=== PATIENT | female | born 1965 | race Caucasian/White ===

== ENCOUNTER 2016-08-09 21:46 | Inpatient (IN) | payer MEDICAID, OTHER ==
[~2016-08-09 21:46] MED LIST: ALBUAER3 INH; BENZ1TAB PO; CLAR10CA3 PO; FURO20TA PO; HALO10TA PO; LITH300C2 PO; LORA-373 PO; OLAN15TA PO; OXYB5TAB10 PO; POTA-163 PO
[2016-08-09 22:08] VITALS: BP 138/95; PULSE 88; RESP 18; TEMP 99.1; O2SAT 100
--- NOTE | 2016-08-09 22:35 | PD ---
HPI Chief Complaint: Psychiatric Symptoms Time Seen by Provider: 22:26 Travel History International Travel<30 days: No Contact w/Intl Traveler<30days: No Traveled to known affect area: No History of Present Illness HPI 51-year-old white female presents to emergency department under [place] act by PD. She had informed PD that she was feeling depressed and having thoughts of self-harm. She was going to cut her wrists. She states that she does not like living where she is at right now. She states that she is in a residential. She denies any toxic ingestions. No homicidal ideation. She has a history of substance abuse in the past. She states that she's been sober off drugs and alcohol for a year now. She contends that she has been compliant with her medications. She reports having an episode of nausea vomiting earlier today but none now. She denies any fever or chills. No ear pain, sore throat, cough , dysuria, frequency or back pain. No rashes or lesions. PFSH Past Medical History Narrative Medical Bipolar, paranoid schizophrenia, substance abuse, hepatitis C Asthma: No Bipolar Disorder: Yes Depression: Yes (MANIC DEPRESSIVE DISORDER) COPD: No Diabetes: No Diminished Hearing: No Hepatitis: Yes (HEP C) Seizures: Yes Tetanus Vaccination: < 5 Years ?: Not Past Surgical History Narrative Surgical 2, hysterectomy Section: Yes Gynecologic Surgery: Yes (C/SECTIONS X2) Hysterectomy: Yes Social History Alcohol Use: No (states sober for one year.) Tobacco Use: Yes (1 PACK DAILY) Substance Use: No (patient has a history of polysubstance abuse but states that she has been sober now for one year.) Allergies-Medications (Allergen,Severity, Reaction): Coded Allergies: Penicillin (Verified Allergy, Severe, 08/04/16) Reported Meds & Prescriptions Reported Meds & Active Scripts Active Reported Haloperidol 10 Mg Tab 15 Mg PO DAILY Benztropine (Benztropine Mesylate) 1 Mg Tab 1 Mg PO BID [place] Carbonate 300 Mg Cap 300 Mg PO BID Potassium Chloride ER (Potassium Chloride) 20 Meq Tab 20 Meq PO DAILY Proair Hfa 8.5 GM Inh (Albuterol Sulfate) 90 Mcg/Act Aer 2 Puff INH Q4-6H PRN 108 mcg/actuation Lorazepam 0.5 Mg Tab 0.5 Mg PO BID PRN Olanzapine 15 Mg Tab 15 Mg PO HS Furosemide 20 Mg Tab 20 Mg PO DAILY Claritin (Loratadine) 10 Mg Cap 10 Mg PO DAILY Ditropan (Oxybutynin Chloride) 5 Mg Tab 5 Mg PO Q12HR Review of Systems Except as stated in HPI: all other systems reviewed are Neg Psychiatric: Positive: Depression, Mood Disorder, No: Anxiety, Suicidal Ideations, Disorder of Thought, Substance Abuse (denies any currently. History of.), Homicidal Ideation Physical Exam Narrative GENERAL: Well-nourished, well-developed patient. SKIN: Warm and dry. HEAD: Normocephalic and atraumatic. EYES: No scleral icterus. No injection or drainage. ENT: No nasal drainage noted. Mucous membranes pink. Airway patent. NECK: Supple, trachea midline. Moves head freely without obvious discomfort. CARDIOVASCULAR: Regular rate and rhythm without murmurs, gallops, or rubs. RESPIRATORY: Breath sounds equal bilaterally. No accessory muscle use. GASTROINTESTINAL: Abdomen soft, non-tender, nondistended. No guarding or rebound. EXTREMITIES: No cyanosis or edema. BACK: Nontender without obvious deformity. No CVA tenderness. NEURO: Patient is alert and oriented. no sensorimotor deficits. Nonfocal. Mumbled speech. PSYCH: No delusions. No auditory or visual hallucinations. Data Data Last Documented VS Vital Signs Date Time Temp Pulse Resp B/P Pulse Ox O2 Delivery O2 Flow Rate FiO2 08/09/16 22:08 99.1 88 18 138/95 100 Orders Complete Blood Count With Diff (08/09/16 22:24) Comprehensive Metabolic Panel (08/09/16 22:24) Psych Screen (08/09/16 22:24) Drug Screen, Random Urine (08/09/16 22:24) Alcohol (Ethanol) (08/09/16 22:24) Salicylates (Aspirin) (08/09/16 22:24) Tylenol (Acetaminophen) (08/09/16 22:24) Labs Laboratory Tests Test 08/09/16 08/09/16 22:06 23:36 White Blood Count 10.2 TH/MM3 Red Blood Count 4.27 MIL/MM3 Hemoglobin 13.9 GM/DL Hematocrit 40.8 % Mean Corpuscular Volume 95.6 FL Mean Corpuscular Hemoglobin 32.6 PG Mean Corpuscular Hemoglobin 34.1 % Concent Red Cell Distribution Width 13.0 % Platelet Count 112 TH/MM3 Mean Platelet Volume 8.9 FL Neutrophils (%) (Auto) 75.5 % Lymphocytes (%) (Auto) 12.3 % Monocytes (%) (Auto) 8.3 % Eosinophils (%) (Auto) 3.1 % Basophils (%) (Auto) 0.8 % Neutrophils # (Auto) 7.7 TH/MM3 Lymphocytes # (Auto) 1.3 TH/MM3 Monocytes # (Auto) 0.8 TH/MM3 Eosinophils # (Auto) 0.3 TH/MM3 Basophils # (Auto) 0.1 TH/MM3 CBC Comment DIFF FINAL Differential Comment Sodium Level 138 MEQ/L Potassium Level 3.2 MEQ/L Chloride Level 103 MEQ/L Carbon Dioxide Level 28.6 MEQ/L Anion Gap 6 MEQ/L Blood Urea Nitrogen 8 MG/DL Creatinine 1.04 MG/DL Estimat Glomerular Filtration 56 ML/MIN Rate Random Glucose 84 MG/DL Calcium Level 9.0 MG/DL Total Bilirubin 0.4 MG/DL Aspartate Amino Transf 24 U/L (AST/SGOT) Alanine Aminotransferase 51 U/L (ALT/SGPT) Alkaline Phosphatase 102 U/L Total Protein 7.3 GM/DL Albumin 3.7 GM/DL Salicylates Level 2.9 MG/DL Acetaminophen Level LESS THAN 2.0 MCG/ML Ethyl Alcohol Level LESS THAN 3 MG/DL Urine Opiates Screen NEG Urine Barbiturates Screen NEG Urine Amphetamines Screen NEG Urine Benzodiazepines Screen NEG Urine Cocaine Screen NEG Urine Cannabinoids Screen NEG MDM Medical Decision Making Medical Screen Exam Complete: Yes Emergency Medical Condition: Yes Medical Record Reviewed: Yes Interpretation(s) Laboratory Tests Test 08/09/16 08/09/16 22:06 23:36 White Blood Count 10.2 TH/MM3 Red Blood Count 4.27 MIL/MM3 Hemoglobin 13.9 GM/DL Hematocrit 40.8 % Mean Corpuscular Volume 95.6 FL Mean Corpuscular Hemoglobin 32.6 PG Mean Corpuscular Hemoglobin 34.1 % Concent Red Cell Distribution Width 13.0 % Platelet Count 112 TH/MM3 Mean Platelet Volume 8.9 FL Neutrophils (%) (Auto) 75.5 % Lymphocytes (%) (Auto) 12.3 % Monocytes (%) (Auto) 8.3 % Eosinophils (%) (Auto) 3.1 % Basophils (%) (Auto) 0.8 % Neutrophils # (Auto) 7.7 TH/MM3 Lymphocytes # (Auto) 1.3 TH/MM3 Monocytes # (Auto) 0.8 TH/MM3 Eosinophils # (Auto) 0.3 TH/MM3 Basophils # (Auto) 0.1 TH/MM3 CBC Comment DIFF FINAL Differential Comment Sodium Level 138 MEQ/L Potassium Level 3.2 MEQ/L Chloride Level 103 MEQ/L Carbon Dioxide Level 28.6 MEQ/L Anion Gap 6 MEQ/L Blood Urea Nitrogen 8 MG/DL Creatinine 1.04 MG/DL Estimat Glomerular Filtration 56 ML/MIN Rate Random Glucose 84 MG/DL Calcium Level 9.0 MG/DL Total Bilirubin 0.4 MG/DL Aspartate Amino Transf 24 U/L (AST/SGOT) Alanine Aminotransferase 51 U/L (ALT/SGPT) Alkaline Phosphatase 102 U/L Total Protein 7.3 GM/DL Albumin 3.7 GM/DL Salicylates Level 2.9 MG/DL Acetaminophen Level LESS THAN 2.0 MCG/ML Ethyl Alcohol Level LESS THAN 3 MG/DL Urine Opiates Screen NEG Urine Barbiturates Screen NEG Urine Amphetamines Screen NEG Urine Benzodiazepines Screen NEG Urine Cocaine Screen NEG Urine Cannabinoids Screen NEG Differential Diagnosis MDM: High Differential diagnoses: Schizophrenia, schizoaffective disorder, bipolar, anxiety, depression, adjustment reaction, mood disorder NOS, ODD, depressive disorder NOS, dementia, dementia with agitation, psychosis NOS, substance induced mood disorder, intermittent explosive disorder, Asperger syndrome, infection,electrolyte abnormality, malingering. Narrative Course Mental health screening discussed with the patient. Psychiatric screen ordered. The patient is been medically cleared. This is medical clearance Diagnosis Primary Impression: Medical clearance for psychiatric admission Condition: Elieser Ferraro August 09, 2016 22:35
[2016-08-09 23:01] LABS: AUTOMATED NEUTROPHIL # 7.7 TH/MM3 (1.8-7.7); BASOPHIL # 0.1 TH/MM3 (0-0.2); BASOPHIL % 0.8 % (0.0-2.0); EOSINOPHIL # 0.3 TH/MM3 (0-0.4); EOSINOPHIL % 3.1 % (0.0-4.0); HEMATOCRIT 40.8 % (35.0-46.0); HEMO FLAGS DIFF FINAL; LYMPH % 12.3 % (9.0-44.0); LYMPHOCYTE # 1.3 TH/MM3 (1.0-4.8); MEAN CELL VOLUME 95.6 FL (80.0-100.0); MEAN CORPUSCULAR HEMOGLOBIN 32.6 PG (27.0-34.0); MEAN CORPUSCULAR HGB CONC 34.1 % (32.0-36.0); MONO % 8.3 % (0.0-8.0); NEUT % 75.5 % (16.0-70.0); PLATELET COUNT 112 TH/MM3 (150-450); RED BLOOD COUNT 4.27 MIL/MM3 (4.00-5.30); WHITE BLOOD COUNT 10.2 TH/MM3 (4.0-11.0)
[2016-08-09 23:25] LABS: ALT (GPT) 51 U/L (10-53); ANION GAP 6 MEQ/L (5-15); AST (GOT) 24 U/L (15-37); BICARBONATE 28.6 MEQ/L (21.0-32.0); BLOOD UREA NITROGEN 8 MG/DL (7-18); CHLORIDE 103 MEQ/L (98-107); GLOMERULAR FILTRATION RATE 56 ML/MIN (>89); POTASSIUM 3.2 MEQ/L (3.5-5.1); SODIUM (NA) 138 MEQ/L (136-145)
[2016-08-09 23:27] LABS: ACETAMINOPHEN LESS THAN 2.0 MCG/ML (10.0-30.0); ALKALINE PHOSPHATASE 102 U/L (45-117); TOTAL BILIRUBIN ADULT 0.4 MG/DL (0.2-1.0)
[2016-08-09 23:51] LABS: AMPHETAMINE, URINE NEG (NEG); BARBITURATES, URINE NEG (NEG); COCAINE, URINE NEG (NEG)
[2016-08-10 02:42] VITALS: BP 118/73; PULSE 69; RESP 18; O2SAT 97
[2016-08-10] MEDS ORDERED: HALO100P IM (04:42)
[2016-08-10 10:00] VITALS: BP 115/66; PULSE 64; RESP 18
[2016-08-10 14:00] VITALS: BP 107/59; PULSE 59; RESP 18
[2016-08-10 14:55] VITALS: TEMP 97; O2SAT 99
[2016-08-10] MEDS ORDERED: MAGNESIUM HYDROXIDE SUSP 30 ML CUP PO PRN (15:00)
[2016-08-10] MEDS ORDERED: LORazepam 2 MG/ML VIAL IM PRN (15:00)
[2016-08-10] MEDS ORDERED: BENZTROPINE MESYLATE 1 MG TAB PO PRN (15:00)
[2016-08-10] MEDS ORDERED: BENZTROPINE MESYLATE 2 MG/2 ML VIAL IM PRN (15:00)
[2016-08-10] MEDS ORDERED: ALUMINUM/MAGNESIUM/SIMETH 30 ML CUP PO PRN (15:00)
--- NOTE | 2016-08-10 15:00 | HHI.HP ---
Provisional Diagnosis Admission Date 08/10/2016 [place] I. 1. Other schizoaffective disorder [place] II. Deferred [place] V. GAF is unclear at present Certification of Person's Competence To Provide Express and Informed Consent I have personally examined Kate Roy , a person being served at [facility] on, August 10, 2016 15:00. Express and informed consent means consent voluntarily given in writing, by a competent person, after sufficient explanation and disclosure of the subject matter involved to enable the person to make a knowing and willful decision without any element of force, fraud, deceit, duress, or other form of constraint or coercion. This person is 18 years of age or older, is not now known to be incompetent to consent to treatment with a guardian advocate, and does not have a health care surrogate or proxy currently making medical treatment decisions. I have found this person to be one of the following: [] Competent to provide express and informed consent, as defined above, for voluntary admission to this facility and is competent to provide express and informed consent for treatment. He/she has the consistent capacity to make well reasoned, willful, and knowing decisions concerning his or her medical or mental health treatment. The person fully and consistently understands the purpose of the admission for examination/placement and is fully capable of personally exercising all rights assured [place] [] Incompetent to provide express and informed consent to voluntary admission, and this is incompetent to provide express and informed consent to treatment. The person must be transferred to involuntary status and a petition for a guardian advocate filed with the Circuit Court. [x] Refusing to provide express and informed consent to voluntary admission but is competent to provide express and informed consent for treatment. The person must be discharged or transferred to involuntary status. Form shall be completed within 24 hours of a person's arrival at the receiving facility and filed in the clinical record of each person: 1. Admitted on a voluntary basis 2. Permitted to provide express and informed consent to his/her own treatment 3. Allowed to transfer from involuntary to voluntary status 4. Prior to permitting a person to consent to his or her own treatment after having been previously found incompetent to consent to treatment. History of Present Illness Capacity: Has Capacity HPI Ms. Roy is a 51-year-old female with a history of schizoaffective disorder brought in by [place] [employer] under a [place] act alleging that she threatened to slit her wrists. Reviewing the electronic medical record, I note the patient was admitted most recently here under Dr. Chery in 2004. Patient has apparently been getting most of her inpatient/outpatient psychiatric care through [facility] since then. Patient seen and examined. Chart reviewed. Case discussed with nursing staff. On my examination today, the patient admits to making suicidal threats to law enforcement but says "I made that up because I wanted to go somewhere." Patient apparently means to say that she wished to get out of her halfway for some time. She denies any suicidal ideation at this time. No homicidal ideation. Patient denies issues with mood but her affect is somewhat irritable. She denies audiovisual hallucinations. No car delusions. She is noted to be somewhat intrusive and discharge focused. The remainder of the psychiatric ROS is negative. Past psychiatric history: Patient has a history of schizoaffective disorder. She follows at [facility]. She reports that she was hospitalized on the order of several weeks ago at [facility]. She endorses a history of suicide attempts by cutting her wrists. Review of Systems ROS Limitations: Poor Historian Except as stated in HPI: all other systems reviewed are Neg Past Psych History Psychological trauma history No reported trauma hx Violence risk - others (6 mos) Low imminent risk Violence risk - self (6 mos) Indeterminate Substance Abuse History Drugs/Alcohol past 12 months Patient denies any abuse of drugs or alcohol Past Family Social History Coded Allergies: Penicillin (Verified Allergy, Severe, 08/04/16) Past Medical History See electronic medical record Reported Medications Haloperidol Decanoate Inj (Haldol Decanoate Inj)100 Mg/Ml [id number] Mg IM Q28D #1 VIAL Ref 0 08/10/16 Haloperidol 10 Mg Tab10 Mg PO HS Ref 0 08/04/16 Benztropine 1 Mg Tab1 Mg PO BID #60 TAB Ref 0 08/04/16 [place] Carbonate 300 Mg [id number] Mg PO BID Ref 0 08/04/16 Potassium Chloride ER 20 Meq Tab20 Meq PO DAILY #30 TAB Ref 0 08/04/16 Albuterol 8.5 GM Inh (Proair Hfa 8.5 GM Inh)90 Mcg/Act Aer2 Puff INH Q4-6H PRN ( SHORTNESS OF BREATH) #1 INHALER Ref 0 108 mcg/actuation 08/04/16 Lorazepam 0.5 Mg Tab0.5 Mg PO BID PRN (ANXIETY) Ref 0 08/04/16 Olanzapine 15 Mg Tab15 Mg PO HS #30 TAB Ref 0 08/04/16 Loratadine (Claritin)10 Mg Cap10 Mg PO DAILY Ref 0 08/04/16 Oxybutynin (Ditropan)5 Mg Tab5 Mg PO Q12HR #60 TAB Ref 0 08/04/16 Discontinued Reported Medications Furosemide 20 Mg Tab20 Mg PO DAILY #30 TAB Ref 0 08/04/16 Potassium (Potassimin)75 Mg Tab 08/04/16 Trazodone HCl 100 Mg Dqj278 Mg PO HS 12/19/12 Risperidone Microspheres (Risperdal Consta)12.5 Mg/2 Ml Inj50 Mg IM EVERY 2 WEEKS 02/21/11 [place] Carbonate (Eskalith)300 Mg Cxz720 Mg PO DAILY 02/21/11 Benztropine Mesylate (Cogentin)1 Mg/Ml Inj1 Mg IJ BID 02/21/11 Current Medications Medications (Trade) Dose Ordered Sig/Justin Route Start Time Stop Time Status Last Admin (Ativan) 1 mg Q6H PRN PO 08/10/16 15:00 UNV (Ativan Inj) 1 mg Q6H PRN IM 08/10/16 15:00 UNV (Benadryl) 50 mg HS PRN PO 08/10/16 15:00 UNV (Tylenol) 650 mg Q4H PRN PO 08/10/16 15:00 UNV (Milk Of Magnesia Liq) 30 ml DAILY PRN PO 08/10/16 15:00 UNV (Mag-Al Plus Susp Liq) 30 ml Q6H PRN PO 08/10/16 15:00 UNV (Habitrol 21 Mg Patch.24 Hr) 1 patch DAILY T-DERMAL 08/11/16 09:00 UNV (Cogentin) 1 mg Q12H PRN PO 08/10/16 15:00 UNV (Cogentin Inj) 1 mg Q12H PRN IM 08/10/16 15:00 UNV Miscellaneous Information 1 DAILY T-DERMAL 08/11/16 09:00 UNV Family History Patient reports mother had schizophrenia Social History Patient lives at a halfway called [facility]. She has resided there for 2 months she says. She is not terribly pleased with the living environment. She is college educated. She previously worked as a banking services advisor. She denies any or legal history. She has 4 children and is . Patient's Strengths (min. 2) In a monitored setting. Verbally fluent. Physical Exam Physical exam completed by ED provider. On my examination today, patient is in no acute physical distress. No motor abnormalities noted. Labs and vital signs reviewed: Vital Signs Vital Signs Date Time Temp Pulse Resp B/P Pulse Ox O2 Delivery O2 Flow Rate FiO2 08/10/16 14:55 97.0 99 08/10/16 14:00 59 18 107/59 Room Air Lab Results Item Value Date Time White Blood Count 10.2 TH/MM3 08/09/162205 Hemoglobin 13.9 GM/DL 08/09/162205 Platelet Count 112 TH/MM3 L 08/09/162205 Sodium Level 138 MEQ/L 08/09/162205 Potassium Level 3.2 MEQ/L L 08/09/162205 Chloride Level 103 MEQ/L 08/09/162205 Carbon Dioxide Level 28.6 MEQ/L 08/09/162205 Blood Urea Nitrogen 8 MG/DL 08/09/166 Creatinine 1.04 MG/DL H 08/09/162205 Aspartate Amino Transf (AST/SGOT) 24 U/L 08/09/162205 Alanine Aminotransferase (ALT/SGPT) 51 U/L 08/09/162205 Alkaline Phosphatase 102 U/L 08/09/162205 Toxicology negative and alcohol level undetectable. ED [id number] test negative. Mental Status Examination Patient is in hospital gown. She is fairly well groomed. She is awake and alert and oriented to person and hospital at least. No abnormal motor movements noted. Speech is within normal limits for rate, tone and volume. Language and fund of knowledge seem average to perhaps slightly reduced. Mood is reportedly fair but affect is somewhat restricted and dysphoric/irritable. Thought process perseverative on discharge. No car delusions. No audiovisual hallucinations. Denies suicidal or homicidal ideation but it is unclear that she is reliable to contract for safety in her present state. Insight and judgment are unclear. Assessment & Plan Problem List: (1) Schizoaffective disorder ICD Code: F25.9 Assessment & Plan This is a 51-year-old female with psychiatric history as detailed above who presents under a [place] act. Patient admits to making the suicidal threats listed in the [place] act but says that she was just trying to get out of her halfway. Nonetheless, the patient is somewhat irritable and dysphoric and I fear that she is unreliable to contract for safety at this time. I believe it is most prudent therefore to admit the patient to the inpatient psychiatric unit for observation. Admit inpatient. Patient is refusing voluntary status. Initiate petition for involuntary psychiatric hospitalization. Consult for second opinion. Patient retains capacity to consent for medications. Continue Haldol 10 mg and Zyprexa 15 mg, both dosed at bedtime. Patient also receives Haldol Decanoate, and the nursing staff reports that the patient received her last dose on 08/05. Continue lithium. Check a spot lithium level. Check a BMP, hemoglobin A1c, lipid panel and TSH in the morning. Continue potassium supplement. Continue Ditropan and loratadine. Ativan as needed for anxiety, Cogentin as needed for EPS, Benadryl as needed for sleep. Vitals every shift. Counselor to see. Disposition planning. Estimated length of stay: 3-5 days. Discharge Planning Pending outcome of observation. Request HC Surrog/Guard Advoc?: No Problem Qualifiers (1) Schizoaffective disorder: Qualified Code: F25.8 - Other schizoaffective disorders Jairon Milner MD August 10, 2016 15:00
[2016-08-10] MEDS ORDERED: ALBUTEROL SULFATE 90 MCG/ACT HFA 18 GM INHALER INH PRN (15:30)
[2016-08-10] MEDS: NICOTINE 21 MG/24 HR PATCH T-DERMAL SCH (16:54)
[2016-08-10] MEDS: OXYBUTYNIN CHLORIDE 5 MG TAB PO SCH (21:41)
[2016-08-10] MEDS: HALOPERIDOL 10 MG TAB PO SCH (21:41)
[2016-08-10] MEDS: diphenhydrAMINE HCL 50 MG CAP PO PRN (21:42)
[2016-08-10] MEDS: LITHIUM CARBONATE 300 MG CAP PO SCH (21:42)
[2016-08-10] MEDS: BENZTROPINE MESYLATE 1 MG TAB PO SCH (21:42)
[2016-08-11 06:11] VITALS: BP 100/58; PULSE 56; RESP 16; TEMP 97.9; O2SAT 97
[2016-08-11] MEDS: POTASSIUM CHLORIDE 20 MEQ PWD PACKET PO SCH (09:00)
[2016-08-11] MEDS ORDERED: NICOTINE 21 MG/24 HR PATCH T-DERMAL SCH (09:00)
[2016-08-11] MEDS: REMOVE OLD PATCH T-DERMAL SCH (09:00)
[2016-08-11] MEDS ORDERED: POTASSIUM CHLORIDE 20 MEQ CONTROLLED RELEASE TAB PO SCH (09:00)
[2016-08-11] MEDS: BENZTROPINE MESYLATE 1 MG TAB PO SCH ×2 (09:05→20:33)
[2016-08-11] MEDS: NICOTINE 21 MG/24 HR PATCH T-DERMAL SCH (09:05)
[2016-08-11] MEDS: OXYBUTYNIN CHLORIDE 5 MG TAB PO SCH ×2 (09:05→20:33)
[2016-08-11] MEDS: LORATADINE 10 MG TAB PO SCH (09:05)
[2016-08-11] MEDS: LITHIUM CARBONATE 300 MG CAP PO SCH ×2 (09:05→20:33)
[2016-08-11 09:40] LABS: ANION GAP 7 MEQ/L (5-15); BICARBONATE 26.1 MEQ/L (21.0-32.0); BLOOD UREA NITROGEN 13 MG/DL (7-18); CHLORIDE 107 MEQ/L (98-107); GLOMERULAR FILTRATION RATE 54 ML/MIN (>89); HDL CHOLESTEROL 33.6 MG/DL (40.0-60.0); LDL CHOLESTEROL 19 MG/DL (0-99); POTASSIUM 4.3 MEQ/L (3.5-5.1); SODIUM (NA) 140 MEQ/L (136-145)
[2016-08-11 11:27] LABS: HEMOGLOBIN A1b 1.4 %; HEMOGLOBIN Ao 86.4 %; HEMOGLOBIN LA1C 2.4 %; HEMOGLOBIN P3 4.8 %
[2016-08-11] MEDS: LORazepam 1 MG TAB PO PRN (12:09)
--- NOTE | 2016-08-11 14:53 | HHI.PYPN ---
Subjective Remarks Patient continues to endorse suicidal ideation. She also appears rather paranoid and easily disorganized. She is willing to be treated with antipsychotic medication at this time. Review of Systems ROS Limitations: Psychotic Objective Alert: Yes [place]: Person, Place, Date, Situation Mood: Anxious Affect: Restricted Memory Intact: Immediate, Recent, Remote Hallucinations: Other Delusions: Yes Delusion Type: Paranoid Suicidal: Ideation Homicidal: Ideation Insight/Judgment Impaired Labs Test 08/10/16 08/11/16 16:48 08:26 Beta HCG, Qualitative LESS THAN 1 MIU/ML [place] Level 0.3 MEQ/L Sodium Level 140 MEQ/L Potassium Level 4.3 MEQ/L Chloride Level 107 MEQ/L Carbon Dioxide Level 26.1 MEQ/L Anion Gap 7 MEQ/L Blood Urea Nitrogen 13 MG/DL Creatinine 1.08 MG/DL Estimat Glomerular Filtration 54 ML/MIN Rate Random Glucose 169 MG/DL Hemoglobin A1c 4.9 % Calcium Level 9.2 MG/DL Triglycerides Level 70 MG/DL Cholesterol Level 67 MG/DL LDL Cholesterol 19 MG/DL HDL Cholesterol 33.6 MG/DL Cholesterol/HDL Ratio 1.99 RATIO Thyroid Stimulating Hormone 0.838 uIU/ML 3rd Gen Vitals/IOs Vital Signs Date Time Temp Pulse Resp B/P Pulse Ox O2 Delivery O2 Flow Rate FiO2 08/11/16 06:11 97.9 56 16 100/58 97 08/10/16 14:00 Room Air Assessment & Plan Problem List: (1) Schizoaffective disorder ICD Code: F25.9 Assessment & Plan Estimated LOS: 3 days patient's medications to be evaluated for efficacy. She' ll be engaged in individual and group therapies. Justification for Cont. Inpt. Likely to decompensate at lower level of care. Request HC Surrog/Guard Advoc?: No Problem Qualifiers (1) Schizoaffective disorder: Qualified Code: F25.8 - Other schizoaffective disorders Robles Scott MD August 11, 2016 14:52
[2016-08-11 18:00] VITALS: BP 105/77; PULSE 87; RESP 16; TEMP 97.8; O2SAT 97
[2016-08-11] MEDS: HALOPERIDOL 10 MG TAB PO SCH (20:33)
[2016-08-11] MEDS: diphenhydrAMINE HCL 50 MG CAP PO PRN (20:33)
[2016-08-12 04:38] VITALS: BP 89/58; PULSE 62; RESP 18; TEMP 97.8; O2SAT 96
[2016-08-12] MEDS: REMOVE OLD PATCH T-DERMAL SCH (09:00)
[2016-08-12] MEDS: LITHIUM CARBONATE 300 MG CAP PO SCH ×2 (09:12→21:44)
[2016-08-12] MEDS: OXYBUTYNIN CHLORIDE 5 MG TAB PO SCH ×2 (09:13→21:44)
[2016-08-12] MEDS: LORATADINE 10 MG TAB PO SCH (09:13)
[2016-08-12] MEDS: POTASSIUM CHLORIDE 20 MEQ PWD PACKET PO SCH (09:13)
[2016-08-12] MEDS: BENZTROPINE MESYLATE 1 MG TAB PO SCH ×2 (09:13→21:44)
[2016-08-12] MEDS: NICOTINE 21 MG/24 HR PATCH T-DERMAL SCH (09:14)
--- NOTE | 2016-08-12 10:59 | HHI.PYPN ---
Subjective Remarks Patient repeatedly stating she wants to go home to her PRISON. This physician has incomplete information about patient's ability to care for herself. Reviewed medical record once again, indicating patient was suicidal at the time of admission but then claimed not to be. We will observe and evaluated over the next 24 hours and determine if patient can be consistent. Review of Systems Except as stated in HPI: all other systems reviewed are Neg Objective Alert: Yes [place]: Person, Place, Date, Situation Mood: Anxious Affect: Restricted Memory Intact: Immediate, Recent, Remote Hallucinations: Other Delusions: Yes Delusion Type: Paranoid Suicidal: Ideation Homicidal: Ideation Insight/Judgment Impaired Vitals/IOs Vital Signs Date Time Temp Pulse Resp B/P Pulse Ox O2 Delivery O2 Flow Rate FiO2 08/12/16 04:38 97.8 62 18 89/58 96 08/10/16 14:00 Room Air Assessment & Plan Problem List: (1) Schizoaffective disorder ICD Code: F25.9 Assessment & Plan Estimated LOS: 1-2 days patient to be evaluated while she is maintained on antipsychotic medication, for stability and behavioral consistency. Justification for Cont. Inpt. Suicidal threats to slit her wrists. Request HC Surrog/Guard Advoc?: No Problem Qualifiers (1) Schizoaffective disorder: Qualified Code: F25.8 - Other schizoaffective disorders Robles Scott MD August 12, 2016 10:59
[2016-08-12 18:03] VITALS: BP 107/65; PULSE 76; RESP 18; TEMP 98.2; O2SAT 98
[2016-08-12] MEDS: HALOPERIDOL 10 MG TAB PO SCH (21:44)
[2016-08-13 05:56] VITALS: BP 91/51; PULSE 58; RESP 16; TEMP 98.2
[2016-08-13] MEDS: REMOVE OLD PATCH T-DERMAL SCH (09:00)
[2016-08-13] MEDS: NICOTINE 21 MG/24 HR PATCH T-DERMAL SCH (09:00)
[2016-08-13] MEDS: BENZTROPINE MESYLATE 1 MG TAB PO SCH ×2 (09:19→20:48)
[2016-08-13] MEDS: OXYBUTYNIN CHLORIDE 5 MG TAB PO SCH ×2 (09:19→20:48)
[2016-08-13] MEDS: POTASSIUM CHLORIDE 20 MEQ PWD PACKET PO SCH (09:19)
[2016-08-13] MEDS: LITHIUM CARBONATE 300 MG CAP PO SCH ×2 (09:19→20:48)
[2016-08-13] MEDS: LORATADINE 10 MG TAB PO SCH (09:19)
[2016-08-13 17:28] VITALS: BP 116/80; PULSE 76; RESP 16; TEMP 97.1; O2SAT 99
[2016-08-13 18:00] VITALS: BP 116/80; PULSE 76; RESP 16; TEMP 97.1; O2SAT 99
[2016-08-13] MEDS: HALOPERIDOL 10 MG TAB PO SCH (20:48)
[2016-08-14 05:41] VITALS: BP 106/68; PULSE 70; RESP 18; TEMP 98.4; O2SAT 97
[2016-08-14] MEDS: OXYBUTYNIN CHLORIDE 5 MG TAB PO SCH ×2 (08:30→21:15)
[2016-08-14] MEDS: BENZTROPINE MESYLATE 1 MG TAB PO SCH ×2 (08:30→21:15)
[2016-08-14] MEDS: LITHIUM CARBONATE 300 MG CAP PO SCH ×2 (08:31→21:15)
[2016-08-14] MEDS: LORATADINE 10 MG TAB PO SCH (08:31)
[2016-08-14] MEDS: NICOTINE 21 MG/24 HR PATCH T-DERMAL SCH (09:00)
[2016-08-14] MEDS: POTASSIUM CHLORIDE 20 MEQ PWD PACKET PO SCH (09:00)
[2016-08-14] MEDS: REMOVE OLD PATCH T-DERMAL SCH (09:00)
--- NOTE | 2016-08-14 14:14 | HHI.PYPN ---
Subjective Remarks Patient continues to be lost, disoriented and easily confused. Wants to leave the hospital even though the foil wrapper told her she may not. Guardian advocate appointment. Review of Systems ROS Limitations: Psychotic Objective Alert: Yes [place]: Person, Place, Date, Situation Mood: Anxious Affect: Restricted Memory Intact: Immediate, Recent, Remote Hallucinations: Other Delusions: Yes Delusion Type: Paranoid Suicidal: Ideation Homicidal: Ideation Insight/Judgment Impaired Vitals/IOs Vital Signs Date Time Temp Pulse Resp B/P Pulse Ox O2 Delivery O2 Flow Rate FiO2 08/14/16 05:41 98.4 70 18 106/68 97 08/10/16 14:00 Room Air Assessment & Plan Problem List: (1) Schizoaffective disorder ICD Code: F25.9 Assessment & Plan Estimated LOS: 5-7 days continued treatment and look for appropriate placement. Justification for Cont. Inpt. No place to go. Likely to decompensate at lower level of care. Request HC Surrog/Guard Advoc?: No Problem Qualifiers (1) Schizoaffective disorder: Qualified Code: F25.8 - Other schizoaffective disorders Robles Scott MD August 14, 2016 14:14
[2016-08-14 20:09] VITALS: BP 114/78; PULSE 60; RESP 18; TEMP 97.9; O2SAT 99
[2016-08-14] MEDS: HALOPERIDOL 10 MG TAB PO SCH (21:15)
[2016-08-15] MEDS: ACETAMINOPHEN 325 MG TAB PO PRN (03:57)
[2016-08-15 06:07] VITALS: BP 136/89; PULSE 77; RESP 18; TEMP 97.7; O2SAT 95
[2016-08-15] MEDS: LITHIUM CARBONATE 300 MG CAP PO SCH ×2 (08:20→20:17)
[2016-08-15] MEDS: BENZTROPINE MESYLATE 1 MG TAB PO SCH ×2 (08:20→20:17)
[2016-08-15] MEDS: LORATADINE 10 MG TAB PO SCH (08:20)
[2016-08-15] MEDS: OXYBUTYNIN CHLORIDE 5 MG TAB PO SCH ×2 (08:20→20:17)
[2016-08-15] MEDS: POTASSIUM CHLORIDE 20 MEQ PWD PACKET PO SCH (08:22)
[2016-08-15] MEDS: REMOVE OLD PATCH T-DERMAL SCH (09:00)
[2016-08-15] MEDS: NICOTINE 21 MG/24 HR PATCH T-DERMAL SCH (09:00)
--- NOTE | 2016-08-15 14:07 | HHI.PYPN ---
Subjective Remarks Patient seen and examined with RN in coverage for Dr. Scott. Chart reviewed. Case discussed with RN who reports that patient was apparently struggling with emesis earlier in the hospital stay, but this is resolved now. Patient has been no behavioral problem. For me today, patient is a little suspicious, hypoverbal and flat. She asks "what's gonna happen in 3 weeks?" When I answer that in truth I do not know, she mutters, "you can't hold me hostage forever." She denies any SI/HI. Denies any AVH. Denies side effects from medications. Review of Systems ROS Limitations: Poor Historian Except as stated in HPI: all other systems reviewed are Neg Objective Alert: Yes [place]: Person, Place, Date Mood: Other (Mildly dysphoric) Affect: Restricted Memory Intact: Comment (Not formally assessed) Hallucinations: Other (Denies AVH) Delusions: Yes Delusion Type: Paranoid Suicidal: Ideation (Denies SI) Homicidal: Ideation (Denies HI) Insight/Judgment Poor Remarks No motor abnormalities noted. Grooming and hygiene fair. Labs Labs reviewed. Vitals/IOs Vital Signs Date Time Temp Pulse Resp B/P Pulse Ox O2 Delivery O2 Flow Rate FiO2 08/15/16 06:07 97.7 77 18 136/89 95 Assessment & Plan Problem List: (1) Schizoaffective disorder ICD Code: F25.9 Assessment & Plan Continue current psychotropics as ordered. Check a lithium level and BMP in the morning. Continue to monitor on the inpatient unit. Continue other medications and care as ordered. Justification for Cont. Inpt. Impairment in reality construction. Risk for decompensation in a less restrictive setting. Discharge Planning Per Dr. Scott. Request HC Surrog/Guard Advoc?: No Problem Qualifiers (1) Schizoaffective disorder: Qualified Code: F25.8 - Other schizoaffective disorders Jairon Milner MD August 15, 2016 14:07
[2016-08-15 18:00] VITALS: BP 148/93; PULSE 80; RESP 18; TEMP 97.2; O2SAT 96
[2016-08-15] MEDS: HALOPERIDOL 10 MG TAB PO SCH (20:17)
[2016-08-16 05:32] VITALS: BP 93/67; PULSE 70; RESP 17; TEMP 97.8; O2SAT 90
[2016-08-16] MEDS: OXYBUTYNIN CHLORIDE 5 MG TAB PO SCH ×2 (08:39→20:44)
[2016-08-16] MEDS: LORATADINE 10 MG TAB PO SCH (08:39)
[2016-08-16] MEDS: POTASSIUM CHLORIDE 20 MEQ PWD PACKET PO SCH (08:39)
[2016-08-16] MEDS: BENZTROPINE MESYLATE 1 MG TAB PO SCH ×2 (08:40→20:43)
[2016-08-16] MEDS: LITHIUM CARBONATE 300 MG CAP PO SCH ×2 (08:40→20:43)
[2016-08-16] MEDS: REMOVE OLD PATCH T-DERMAL SCH (08:44)
[2016-08-16] MEDS: NICOTINE 21 MG/24 HR PATCH T-DERMAL SCH (08:44)
[2016-08-16 10:30] LABS: BICARBONATE 28.9 MEQ/L (21.0-32.0)
[2016-08-16 10:45] VITALS: BP 113/77; PULSE 78; RESP 18; TEMP 98.6; O2SAT 96
--- NOTE | 2016-08-16 11:48 | HHI.PYPN ---
Subjective Remarks Patient seen and examined with nurse in weekend coverage. Chart reviewed. Case discussed with nursing staff who reports that the patient is seclusive to room. On my examination today, the patient presents once again is hypoverbal and flat. She is discharge focused. She denies any suicidal or homicidal ideation. She denies any audiovisual hallucinations. Blood pressure somewhat low today but the patient denies any headache, chest pain or shortness of breath. She is awake and alert and oriented 3. Denies side effects from medications. No other issues noted. Review of Systems ROS Limitations: Poor Historian Except as stated in HPI: all other systems reviewed are Neg Objective Alert: Yes [place]: Person, Place, Date Mood: Calm Affect: Restricted (mildly dysphoric) Memory Intact: Comment (Not formally assessed) Hallucinations: Other (once again denies audiovisual hallucinations) Delusions: Yes Delusion Type: Paranoid (guarded) Suicidal: Ideation (Denies SI) Homicidal: Ideation (Denies HI) Insight/Judgment Poor Remarks No motor abnormalities noted Labs Test 08/16/16 08:35 Sodium Level 142 MEQ/L Potassium Level 4.0 MEQ/L Chloride Level 108 MEQ/L Carbon Dioxide Level 28.9 MEQ/L Anion Gap 5 MEQ/L Blood Urea Nitrogen 18 MG/DL Creatinine 0.97 MG/DL Estimat Glomerular Filtration 61 ML/MIN Rate Random Glucose 95 MG/DL Calcium Level 9.3 MG/DL [place] Level 0.5 MEQ/L Labs reviewed. GFR minimally improved. [place] level remains a little subtherapeutic. Vitals/IOs Vital Signs Date Time Temp Pulse Resp B/P Pulse Ox O2 Delivery O2 Flow Rate FiO2 08/16/16 05:32 97.8 70 17 93/67 90 Assessment & Plan Problem List: (1) Schizoaffective disorder ICD Code: F25.9 Assessment & Plan [place] level remains a little subtherapeutic but in light of patient's ongoing impaired renal function, I will defer to Dr. Scott as to whether to increase the lithium to try to bring the level into the therapeutic range. Recheck vital signs. Fall prec. Continue other medications and care as ordered. Justification for Cont. Inpt. High risk for decompensation in a less restrictive environment Discharge Planning Per Dr. Scott Request HC Surrog/Guard Advoc?: No Problem Qualifiers (1) Schizoaffective disorder: Qualified Code: F25.8 - Other schizoaffective disorders Jairon Milner MD August 16, 2016 11:47
[2016-08-16 18:03] VITALS: BP 120/90; PULSE 100; RESP 18; TEMP 97.6; O2SAT 94
[2016-08-16] MEDS: HALOPERIDOL 10 MG TAB PO SCH (20:44)
[2016-08-17 04:57] VITALS: BP 94/48; PULSE 62; RESP 16; TEMP 98.5; O2SAT 97
[2016-08-17] MEDS: REMOVE OLD PATCH T-DERMAL SCH (09:00)
[2016-08-17] MEDS: POTASSIUM CHLORIDE 20 MEQ PWD PACKET PO SCH (09:00)
[2016-08-17] MEDS: NICOTINE 21 MG/24 HR PATCH T-DERMAL SCH (09:00)
[2016-08-17] MEDS: OXYBUTYNIN CHLORIDE 5 MG TAB PO SCH ×2 (09:16→21:01)
[2016-08-17] MEDS: BENZTROPINE MESYLATE 1 MG TAB PO SCH ×2 (09:17→21:00)
[2016-08-17] MEDS: LITHIUM CARBONATE 300 MG CAP PO SCH ×2 (09:17→21:00)
[2016-08-17] MEDS: LORATADINE 10 MG TAB PO SCH (09:17)
[2016-08-17 15:43] VITALS: BP 151/89; PULSE 78; RESP 18; TEMP 96.1; O2SAT 99
[2016-08-17 20:00] VITALS: BP_SYST 127; BP_SYST 151; BP_DIAS 79; BP_DIAS 89; PULSE 75; PULSE 78; RESP 18; TEMP 96.1; O2SAT 98; O2SAT 99
[2016-08-17] MEDS: HALOPERIDOL 10 MG TAB PO SCH (21:00)
--- NOTE | 2016-08-17 21:32 | HHI.PYPN ---
Subjective Remarks Patient seen on her bed in the psychiatric unit for reevaluation. She reports good mood, no agitation or aggressive behavior, calm and cooperative, Denies SI , HI, VH, AH. Oriented X3, complaint with medication. Objective Alert: Yes [place]: Person, Place, Date Mood: Calm Affect: Restricted (mildly dysphoric) Memory Intact: Comment (Not formally assessed) Hallucinations: Other (once again denies audiovisual hallucinations) Delusions: Yes Delusion Type: Paranoid (guarded) Suicidal: Ideation (Denies SI) Homicidal: Ideation (Denies HI) Insight/Judgment Fair Vitals/IOs Vital Signs Date Time Temp Pulse Resp B/P Pulse Ox O2 Delivery O2 Flow Rate FiO2 08/17/16 15:43 96.1 78 18 151/89 99 Assessment & Plan Problem List: (1) Schizoaffective disorder ICD Code: F25.9 Assessment & Plan Estimated LOS: days Justification for Cont. Inpt. Patient is to continue psychiatric hospitalization for stabilization Request HC Surrog/Guard Advoc?: No Problem Qualifiers (1) Schizoaffective disorder: Qualified Code: F25.8 - Other schizoaffective disorders Noah Orozco MD August 17, 2016 21:32
[2016-08-18 06:00] VITALS: BP 107/44; PULSE 60; RESP 18; TEMP 98.2; O2SAT 98
[2016-08-18] MEDS: LORATADINE 10 MG TAB PO SCH (08:34)
[2016-08-18] MEDS: LITHIUM CARBONATE 300 MG CAP PO SCH ×2 (08:34→21:05)
[2016-08-18] MEDS: OXYBUTYNIN CHLORIDE 5 MG TAB PO SCH ×2 (08:34→21:05)
[2016-08-18] MEDS: POTASSIUM CHLORIDE 20 MEQ PWD PACKET PO SCH (08:34)
[2016-08-18] MEDS: BENZTROPINE MESYLATE 1 MG TAB PO SCH ×2 (08:34→21:05)
[2016-08-18] MEDS: NICOTINE 21 MG/24 HR PATCH T-DERMAL SCH (08:35)
[2016-08-18] MEDS: REMOVE OLD PATCH T-DERMAL SCH (08:35)
[2016-08-18 18:00] VITALS: BP 115/76; PULSE 74; RESP 18; TEMP 97.5; O2SAT 99
[2016-08-18] MEDS: HALOPERIDOL 10 MG TAB PO SCH (21:05)
[2016-08-19 05:49] VITALS: BP 102/50; PULSE 66; RESP 18; TEMP 97.8; O2SAT 95
[2016-08-19] MEDS: OXYBUTYNIN CHLORIDE 5 MG TAB PO SCH ×2 (08:23→21:14)
[2016-08-19] MEDS: BENZTROPINE MESYLATE 1 MG TAB PO SCH ×2 (08:23→21:14)
[2016-08-19] MEDS: LITHIUM CARBONATE 300 MG CAP PO SCH ×2 (08:23→21:14)
[2016-08-19] MEDS: LORATADINE 10 MG TAB PO SCH (08:23)
[2016-08-19] MEDS: NICOTINE 21 MG/24 HR PATCH T-DERMAL SCH (08:23)
[2016-08-19] MEDS: POTASSIUM CHLORIDE 20 MEQ PWD PACKET PO SCH (08:24)
[2016-08-19] MEDS: REMOVE OLD PATCH T-DERMAL SCH (08:25)
--- NOTE | 2016-08-19 15:19 | HHI.PYPN ---
Subjective Remarks Patient seen in day room with nurse, chart review, patient continues show some slow responses and mild follow-up blocking, but she is calm with me today denying suicidality homicidality voices or visions. She says she wants to go home with her family. Though need to investigate placement issues Review of Systems Except as stated in HPI: all other systems reviewed are Neg Objective Alert: Yes [place]: Person, Place, Date Mood: Calm Affect: Restricted (mildly dysphoric) Memory Intact: Comment (Not formally assessed) Hallucinations: Other (once again denies audiovisual hallucinations) Delusions: Yes Delusion Type: Paranoid (guarded) Suicidal: Ideation (Denies SI) Homicidal: Ideation (Denies HI) Insight/Judgment Poor Vitals/IOs Vital Signs Date Time Temp Pulse Resp B/P Pulse Ox O2 Delivery O2 Flow Rate FiO2 08/19/16 05:49 97.8 66 18 102/50 95 Assessment & Plan Problem List: (1) Schizoaffective disorder ICD Code: F25.9 Assessment & Plan Estimated LOS: days patient remains somewhat depressed distracted vigilant though overall cooperative Justification for Cont. Inpt. At this time patient will decompensate if placed in a lower level of care Discharge Planning To be determined Request HC Surrog/Guard Advoc?: No Problem Qualifiers (1) Schizoaffective disorder: Qualified Code: F25.8 - Other schizoaffective disorders Cy Burris MD August 19, 2016 15:19
[2016-08-19 18:16] VITALS: BP 112/70; PULSE 68; RESP 18; TEMP 97.8; O2SAT 98
[2016-08-19] MEDS: HALOPERIDOL 10 MG TAB PO SCH (21:15)
[2016-08-20 06:29] VITALS: BP 94/78; PULSE 66; RESP 16; TEMP 98.5; O2SAT 97
[2016-08-20] MEDS: BENZTROPINE MESYLATE 1 MG TAB PO SCH ×2 (08:29→21:07)
[2016-08-20] MEDS: POTASSIUM CHLORIDE 20 MEQ PWD PACKET PO SCH (08:29)
[2016-08-20] MEDS: LITHIUM CARBONATE 300 MG CAP PO SCH ×2 (08:29→21:07)
[2016-08-20] MEDS: OXYBUTYNIN CHLORIDE 5 MG TAB PO SCH ×2 (08:30→21:07)
[2016-08-20] MEDS: LORATADINE 10 MG TAB PO SCH (08:30)
[2016-08-20] MEDS: REMOVE OLD PATCH T-DERMAL SCH (08:30)
[2016-08-20] MEDS: NICOTINE 21 MG/24 HR PATCH T-DERMAL SCH (08:32)
--- NOTE | 2016-08-20 14:57 | HHI.PYPN ---
Subjective Remarks Patient seen in her room with AV Mohamud. Chart review. Patient calm, continues to isolate continue somewhat childish she does denies suicidality homicidality at the present time. Compliant with medication. For now continue treatment Objective Alert: Yes [place]: Person, Place, Date Mood: Calm Affect: Restricted (mildly dysphoric) Memory Intact: Comment (Not formally assessed) Hallucinations: Other (once again denies audiovisual hallucinations) Delusions: Yes Delusion Type: Paranoid (guarded) Suicidal: Ideation (Denies SI) Homicidal: Ideation (Denies HI) Insight/Judgment Very poor Vitals/IOs Vital Signs Date Time Temp Pulse Resp B/P Pulse Ox O2 Delivery O2 Flow Rate FiO2 08/20/16 06:29 98.5 66 16 94/78 97 Intake and Output 08/19/16 08/19/16 08/20/16 08:00 16:00 00:00 Intake Total 240 ml Balance 240 ml Assessment & Plan Problem List: (1) Schizoaffective disorder ICD Code: F25.9 Assessment & Plan Estimated LOS: days patient continues somewhat confused and vigilant though calmer today. For now continue treatment Justification for Cont. Inpt. At this time patient decompensate and placed in a lower level of care Discharge Planning To be determined Request HC Surrog/Guard Advoc?: No Problem Qualifiers (1) Schizoaffective disorder: Qualified Code: F25.8 - Other schizoaffective disorders Cy Burris MD August 20, 2016 14:56
[2016-08-20 17:14] VITALS: BP 127/88; PULSE 62; RESP 16; TEMP 97.4; O2SAT 94
[2016-08-20] MEDS: HALOPERIDOL 10 MG TAB PO SCH (21:07)
[2016-08-21 06:12] VITALS: BP 101/64; PULSE 58; RESP 16; TEMP 98; O2SAT 93
[2016-08-21] MEDS: NICOTINE 21 MG/24 HR PATCH T-DERMAL SCH (09:00)
[2016-08-21] MEDS: REMOVE OLD PATCH T-DERMAL SCH (09:00)
[2016-08-21] MEDS: POTASSIUM CHLORIDE 20 MEQ PWD PACKET PO SCH (09:00)
[2016-08-21] MEDS: LORATADINE 10 MG TAB PO SCH (09:02)
[2016-08-21] MEDS: LITHIUM CARBONATE 300 MG CAP PO SCH ×2 (09:02→20:31)
[2016-08-21] MEDS: OXYBUTYNIN CHLORIDE 5 MG TAB PO SCH ×2 (09:02→20:31)
[2016-08-21] MEDS: BENZTROPINE MESYLATE 1 MG TAB PO SCH ×2 (09:02→20:31)
--- NOTE | 2016-08-21 14:28 | HHI.PYPN ---
Subjective Remarks Patient seen in her room with nurse [place], chart reviewed, patient compliant medications, patient calm cooperative with me still showing some difficulty with comprehension some slow responses to questions though she is pleasant today this concerned about placement issues. Denies suicidality homicidality voices or visions Review of Systems Except as stated in HPI: all other systems reviewed are Neg Objective Alert: Yes [place]: Person, Place, Date Mood: Calm Affect: Restricted (mildly dysphoric) Memory Intact: Comment (Not formally assessed) Hallucinations: Other (once again denies audiovisual hallucinations) Delusions: Yes Delusion Type: Paranoid (guarded) Suicidal: Ideation (Denies SI) Homicidal: Ideation (Denies HI) Insight/Judgment Poor Vitals/IOs Vital Signs Date Time Temp Pulse Resp B/P Pulse Ox O2 Delivery O2 Flow Rate FiO2 08/21/16 06:12 98.0 58 16 101/64 93 Assessment & Plan Problem List: (1) Schizoaffective disorder ICD Code: F25.9 Assessment & Plan Estimated LOS: days patient continues somewhat slow the responses somewhat guarded isolating, compliant medications Justification for Cont. Inpt. At this time patient will decompensate if placed in a lower level of care Discharge Planning To be determined Request HC Surrog/Guard Advoc?: No Problem Qualifiers (1) Schizoaffective disorder: Qualified Code: F25.8 - Other schizoaffective disorders Cy Burris MD August 21, 2016 14:28
[2016-08-21 18:00] VITALS: BP 149/87; PULSE 82; RESP 16; TEMP 98; O2SAT 98
[2016-08-21] MEDS: HALOPERIDOL 10 MG TAB PO SCH (20:31)
[2016-08-22 05:18] VITALS: BP 101/60; PULSE 58; RESP 16; TEMP 99.5; O2SAT 96
[2016-08-22] MEDS: LITHIUM CARBONATE 300 MG CAP PO SCH ×2 (09:21→20:28)
[2016-08-22] MEDS: BENZTROPINE MESYLATE 1 MG TAB PO SCH ×2 (09:21→20:28)
[2016-08-22] MEDS: LORATADINE 10 MG TAB PO SCH (09:21)
[2016-08-22] MEDS: OXYBUTYNIN CHLORIDE 5 MG TAB PO SCH ×2 (09:21→20:28)
[2016-08-22] MEDS: NICOTINE 21 MG/24 HR PATCH T-DERMAL SCH (09:23)
[2016-08-22] MEDS: POTASSIUM CHLORIDE 20 MEQ PWD PACKET PO SCH (09:23)
[2016-08-22] MEDS: REMOVE OLD PATCH T-DERMAL SCH (09:24)
--- NOTE | 2016-08-22 13:27 | HHI.PYPN ---
Subjective Remarks Calm pleasant and cooperative. Review of Systems Except as stated in HPI: all other systems reviewed are Neg Objective Alert: Yes [place]: Person, Place, Date Mood: Calm Affect: Restricted (mildly dysphoric) Memory Intact: Comment (Not formally assessed) Hallucinations: Other (once again denies audiovisual hallucinations) Delusions: Yes Delusion Type: Paranoid (guarded) Suicidal: Ideation (Denies SI) Homicidal: Ideation (Denies HI) Insight/Judgment Impaired Vitals/IOs Vital Signs Date Time Temp Pulse Resp B/P Pulse Ox O2 Delivery O2 Flow Rate FiO2 08/22/16 05:18 99.5 58 16 101/60 96 Assessment & Plan Problem List: (1) Schizoaffective disorder ICD Code: F25.9 Assessment & Plan Estimated LOS: 7 days awaiting placement. Justification for Cont. Inpt. Likely to decompensate at lower level of care. Request HC Surrog/Guard Advoc?: No Problem Qualifiers (1) Schizoaffective disorder: Qualified Code: F25.8 - Other schizoaffective disorders Robles Scott MD August 22, 2016 13:27
[2016-08-22 18:05] VITALS: BP 141/90; PULSE 67; RESP 18; TEMP 98.1; O2SAT 97
[2016-08-22] MEDS: HALOPERIDOL 10 MG TAB PO SCH (20:28)
[2016-08-23 05:00] VITALS: BP 99/60; PULSE 64; RESP 18; TEMP 99; O2SAT 96
[2016-08-23] MEDS: POTASSIUM CHLORIDE 20 MEQ PWD PACKET PO SCH (09:00)
[2016-08-23] MEDS: NICOTINE 21 MG/24 HR PATCH T-DERMAL SCH (09:00)
[2016-08-23] MEDS: REMOVE OLD PATCH T-DERMAL SCH (09:00)
[2016-08-23] MEDS: BENZTROPINE MESYLATE 1 MG TAB PO SCH ×2 (09:13→20:41)
[2016-08-23] MEDS: LITHIUM CARBONATE 300 MG CAP PO SCH ×2 (09:13→20:41)
[2016-08-23] MEDS: LORATADINE 10 MG TAB PO SCH (09:13)
[2016-08-23] MEDS: OXYBUTYNIN CHLORIDE 5 MG TAB PO SCH ×2 (09:13→20:41)
--- NOTE | 2016-08-23 12:51 | HHI.PYPN ---
Subjective Remarks Patient was seen and case discussed with nursing. Patient is mostly seclusive to room. Is compliant with her medications. She is flat and hypoverbal. Sleeping well per nursing. Denies suicidal ideation intent or plan Objective Alert: Yes [place]: Person, Place, Date Mood: Calm Affect: Blunted Memory Intact: Comment (Not formally assessed) Hallucinations: Other (once again denies audiovisual hallucinations) Delusions: Yes Delusion Type: Other (none elicited today) Suicidal: Ideation (Denies SI) Homicidal: Ideation (Denies HI) Insight/Judgment Poor Vitals/IOs Vital Signs Date Time Temp Pulse Resp B/P Pulse Ox O2 Delivery O2 Flow Rate FiO2 08/23/16 05:00 99.0 64 18 99/60 96 Assessment & Plan Problem List: (1) Schizoaffective disorder ICD Code: F25.9 Assessment & Plan Continue current treatment plan Justification for Cont. Inpt. Patient will decompensate in a less restrictive setting Request HC Surrog/Guard Advoc?: No Problem Qualifiers (1) Schizoaffective disorder: Qualified Code: F25.8 - Other schizoaffective disorders Cy Luong DO August 23, 2016 12:50
[2016-08-23 16:35] VITALS: BP 142/95; PULSE 72; RESP 18; TEMP 97.3; O2SAT 96
[2016-08-23] MEDS: HALOPERIDOL 10 MG TAB PO SCH (20:41)
[2016-08-24 06:00] VITALS: BP 94/59; PULSE 61; RESP 16; TEMP 97.1; O2SAT 97
[2016-08-24] MEDS: NICOTINE 21 MG/24 HR PATCH T-DERMAL SCH (09:00)
[2016-08-24] MEDS: BENZTROPINE MESYLATE 1 MG TAB PO SCH ×2 (09:00→20:41)
[2016-08-24] MEDS: LORATADINE 10 MG TAB PO SCH (09:00)
[2016-08-24] MEDS: OXYBUTYNIN CHLORIDE 5 MG TAB PO SCH ×2 (09:00→20:41)
[2016-08-24] MEDS: LITHIUM CARBONATE 300 MG CAP PO SCH ×2 (09:00→20:42)
[2016-08-24] MEDS: POTASSIUM CHLORIDE 20 MEQ PWD PACKET PO SCH (09:00)
[2016-08-24] MEDS: REMOVE OLD PATCH T-DERMAL SCH (09:00)
--- NOTE | 2016-08-24 13:27 | HHI.PYPN ---
Subjective Remarks Patient was seen and case discussed with nursing. Patient remains internally preoccupied but denies any auditory or visual hallucinations. Flat affect. 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 She is compliant with her medications and behaving well on the unit. Objective Alert: Yes [place]: Person, Place, Date Mood: Calm Affect: Blunted Memory Intact: Comment (Not formally assessed) Hallucinations: Other (once again denies audiovisual hallucinations) Delusions: Yes Delusion Type: Other Suicidal: Ideation (Denies SI) Homicidal: Ideation (Denies HI) Insight/Judgment Poor Vitals/IOs Vital Signs Date Time Temp Pulse Resp B/P Pulse Ox O2 Delivery O2 Flow Rate FiO2 08/24/16 06:00 97.1 61 16 94/59 97 Assessment & Plan Problem List: (1) Schizoaffective disorder ICD Code: F25.9 Assessment & Plan Continue current treatment plan Justification for Cont. Inpt. Patient will decompensate in a less restrictive setting Request HC Surrog/Guard Advoc?: No Problem Qualifiers (1) Schizoaffective disorder: Qualified Code: F25.8 - Other schizoaffective disorders Cy Luong DO August 24, 2016 13:27
[2016-08-24] MEDS: HALOPERIDOL 10 MG TAB PO SCH (20:41)
[2016-08-24 21:20] VITALS: BP 94/59; PULSE 61; RESP 18; TEMP 97.1; O2SAT 99
[2016-08-25 06:02] VITALS: BP 90/53; PULSE 60; RESP 18; TEMP 97.4; O2SAT 95
[2016-08-25] MEDS: POTASSIUM CHLORIDE 20 MEQ PWD PACKET PO SCH (09:00)
[2016-08-25] MEDS: BENZTROPINE MESYLATE 1 MG TAB PO SCH ×2 (09:00→21:00)
[2016-08-25] MEDS: NICOTINE 21 MG/24 HR PATCH T-DERMAL SCH (09:00)
[2016-08-25] MEDS: OXYBUTYNIN CHLORIDE 5 MG TAB PO SCH ×2 (09:00→21:00)
[2016-08-25] MEDS: LORATADINE 10 MG TAB PO SCH (09:00)
[2016-08-25] MEDS: LITHIUM CARBONATE 300 MG CAP PO SCH ×2 (09:00→21:00)
[2016-08-25] MEDS: REMOVE OLD PATCH T-DERMAL SCH (09:00)
--- NOTE | 2016-08-25 14:49 | HHI.PYPN ---
Subjective Remarks No medication changes. Patient pleasant and cooperative. Still placement issue. Review of Systems Except as stated in HPI: all other systems reviewed are Neg Objective Alert: Yes [place]: Person, Place, Date Mood: Calm Affect: Blunted Memory Intact: Comment (Not formally assessed) Hallucinations: Other (once again denies audiovisual hallucinations) Delusions: Yes Delusion Type: Other Suicidal: Ideation (Denies SI) Homicidal: Ideation (Denies HI) Insight/Judgment Impaired Vitals/IOs Vital Signs Date Time Temp Pulse Resp B/P Pulse Ox O2 Delivery O2 Flow Rate FiO2 08/25/16 06:02 97.4 60 18 90/53 95 Assessment & Plan Problem List: (1) Schizoaffective disorder ICD Code: F25.9 Assessment & Plan Estimated LOS: 5 days placement issue Justification for Cont. Inpt. Unable to care for self. Request HC Surrog/Guard Advoc?: No Problem Qualifiers (1) Schizoaffective disorder: Qualified Code: F25.8 - Other schizoaffective disorders Robles Scott MD August 25, 2016 14:49
[2016-08-25] MEDS: HALOPERIDOL 10 MG TAB PO SCH (21:00)
[2016-08-25 22:05] VITALS: BP 142/88; PULSE 70; RESP 18; TEMP 98.4; O2SAT 100
[2016-08-26 05:43] VITALS: BP 101/56; PULSE 61; RESP 18; TEMP 98.1; O2SAT 100
[2016-08-26] MEDS: REMOVE OLD PATCH T-DERMAL SCH (09:00)
[2016-08-26] MEDS: NICOTINE 21 MG/24 HR PATCH T-DERMAL SCH (09:00)
[2016-08-26] MEDS: BENZTROPINE MESYLATE 1 MG TAB PO SCH ×2 (09:14→21:00)
[2016-08-26] MEDS: POTASSIUM CHLORIDE 20 MEQ PWD PACKET PO SCH (09:15)
[2016-08-26] MEDS: LITHIUM CARBONATE 300 MG CAP PO SCH ×2 (09:15→21:00)
[2016-08-26] MEDS: LORATADINE 10 MG TAB PO SCH (09:15)
[2016-08-26] MEDS: OXYBUTYNIN CHLORIDE 5 MG TAB PO SCH ×2 (09:15→21:00)
--- NOTE | 2016-08-26 16:02 | HHI.PYPN ---
Subjective Remarks No change. Placement issue. Review of Systems Except as stated in HPI: all other systems reviewed are Neg Objective Alert: Yes [place]: Person, Place, Date Mood: Calm Affect: Blunted Memory Intact: Comment (Not formally assessed) Hallucinations: Other (once again denies audiovisual hallucinations) Delusions: Yes Delusion Type: Other Suicidal: Ideation (Denies SI) Homicidal: Ideation (Denies HI) Insight/Judgment Wants to leave. Has no place to go. Impaired. Vitals/IOs Vital Signs Date Time Temp Pulse Resp B/P Pulse Ox O2 Delivery O2 Flow Rate FiO2 08/26/16 05:43 98.1 61 18 101/56 100 Assessment & Plan Problem List: (1) Schizoaffective disorder ICD Code: F25.9 Assessment & Plan Estimated LOS: 5 days continue to look for placement. Justification for Cont. Inpt. Will decompensate at lower level of care. Request HC Surrog/Guard Advoc?: No Problem Qualifiers (1) Schizoaffective disorder: Qualified Code: F25.8 - Other schizoaffective disorders Robles Scott MD August 26, 2016 16:02
[2016-08-26 18:04] VITALS: BP 122/70; PULSE 72; RESP 16; TEMP 97.4; O2SAT 98
[2016-08-26] MEDS: HALOPERIDOL 10 MG TAB PO SCH (21:00)
[2016-08-26] MEDS: diphenhydrAMINE HCL 50 MG CAP PO PRN (21:00)
[2016-08-26] MEDS: LORazepam 1 MG TAB PO PRN (21:00)
[2016-08-26] MEDS: ACETAMINOPHEN 325 MG TAB PO PRN (21:00)
[2016-08-27 05:12] VITALS: BP 100/56; PULSE 64; RESP 18; TEMP 98.3; O2SAT 96
[2016-08-27] MEDS: NICOTINE 21 MG/24 HR PATCH T-DERMAL SCH (09:00)
[2016-08-27] MEDS: REMOVE OLD PATCH T-DERMAL SCH (09:00)
[2016-08-27] MEDS: BENZTROPINE MESYLATE 1 MG TAB PO SCH ×2 (09:46→20:49)
[2016-08-27] MEDS: LITHIUM CARBONATE 300 MG CAP PO SCH ×2 (09:46→20:49)
[2016-08-27] MEDS: POTASSIUM CHLORIDE 20 MEQ PWD PACKET PO SCH (09:46)
[2016-08-27] MEDS: LORATADINE 10 MG TAB PO SCH (09:46)
[2016-08-27] MEDS: OXYBUTYNIN CHLORIDE 5 MG TAB PO SCH ×2 (09:46→20:49)
--- NOTE | 2016-08-27 12:53 | HHI.PYPN ---
Subjective Remarks Patient calm pleasant and cooperative. Continues to wait for placement. Patient believes she has placement available but this is not true. Review of Systems ROS Limitations: Psychotic Objective Alert: Yes [place]: Person, Place, Date Mood: Calm Affect: Blunted Memory Intact: Comment (Not formally assessed) Hallucinations: Other (once again denies audiovisual hallucinations) Delusions: Yes Delusion Type: Other Suicidal: Ideation (Denies SI) Homicidal: Ideation (Denies HI) Insight/Judgment Impaired Vitals/IOs Vital Signs Date Time Temp Pulse Resp B/P Pulse Ox O2 Delivery O2 Flow Rate FiO2 08/27/16 05:12 98.3 64 18 100/56 96 Intake and Output 08/26/16 08/26/16 08/27/16 08:00 16:00 00:00 Intake Total 360 ml Balance 360 ml Assessment & Plan Problem List: (1) Schizoaffective disorder ICD Code: F25.9 Assessment & Plan Estimated LOS 5: days continues to need placement an antipsychotic medicine. Justification for Cont. Inpt. Unable to care for self. Request HC Surrog/Guard Advoc?: No Problem Qualifiers (1) Schizoaffective disorder: Qualified Code: F25.8 - Other schizoaffective disorders Robles Scott MD August 27, 2016 12:53
[2016-08-27 18:16] VITALS: BP 108/58; PULSE 65; RESP 17; TEMP 98.6; O2SAT 100
[2016-08-27] MEDS: HALOPERIDOL 10 MG TAB PO SCH (20:49)
[2016-08-28 05:34] VITALS: BP 98/59; PULSE 70; RESP 16; TEMP 98.1; O2SAT 99
[2016-08-28] MEDS: BENZTROPINE MESYLATE 1 MG TAB PO SCH ×2 (08:57→21:39)
[2016-08-28] MEDS: LORATADINE 10 MG TAB PO SCH (08:57)
[2016-08-28] MEDS: OXYBUTYNIN CHLORIDE 5 MG TAB PO SCH ×2 (08:57→21:39)
[2016-08-28] MEDS: LITHIUM CARBONATE 300 MG CAP PO SCH ×2 (08:58→21:39)
[2016-08-28] MEDS: REMOVE OLD PATCH T-DERMAL SCH (09:00)
[2016-08-28] MEDS: NICOTINE 21 MG/24 HR PATCH T-DERMAL SCH (09:00)
[2016-08-28] MEDS: POTASSIUM CHLORIDE 20 MEQ PWD PACKET PO SCH (09:00)
[2016-08-28 18:00] VITALS: BP 138/84; PULSE 68; RESP 18; TEMP 98.4; O2SAT 96
[2016-08-28] MEDS: HALOPERIDOL 10 MG TAB PO SCH (21:39)
[2016-08-28] MEDS: diphenhydrAMINE HCL 50 MG CAP PO PRN (21:39)
[2016-08-29 06:27] VITALS: BP 98/62; PULSE 90; RESP 16; TEMP 97.8; O2SAT 100
[2016-08-29] MEDS: OXYBUTYNIN CHLORIDE 5 MG TAB PO SCH ×2 (08:16→21:05)
[2016-08-29] MEDS: LORATADINE 10 MG TAB PO SCH (08:17)
[2016-08-29] MEDS: BENZTROPINE MESYLATE 1 MG TAB PO SCH ×2 (08:17→21:05)
[2016-08-29] MEDS: LITHIUM CARBONATE 300 MG CAP PO SCH ×2 (08:17→21:05)
[2016-08-29] MEDS: POTASSIUM CHLORIDE 20 MEQ PWD PACKET PO SCH (08:19)
[2016-08-29] MEDS: REMOVE OLD PATCH T-DERMAL SCH (09:00)
[2016-08-29] MEDS: NICOTINE 21 MG/24 HR PATCH T-DERMAL SCH (09:00)
--- NOTE | 2016-08-29 09:57 | HHI.PYPN ---
Subjective Remarks Patient doing much better. Awaiting placement which is scheduled for September 04. Review of Systems Except as stated in HPI: all other systems reviewed are Neg Objective Alert: Yes [place]: Person, Place, Date Mood: Calm Affect: Blunted Memory Intact: Comment (Not formally assessed) Hallucinations: Other (once again denies audiovisual hallucinations) Delusions: Yes Delusion Type: Other Suicidal: Ideation (Denies SI) Homicidal: Ideation (Denies HI) Insight/Judgment Adequate Vitals/IOs Vital Signs Date Time Temp Pulse Resp B/P Pulse Ox O2 Delivery O2 Flow Rate FiO2 08/29/16 06:27 97.8 90 16 98/62 100 Intake and Output 08/28/16 08/28/16 08/29/16 08:00 16:00 00:00 Intake Total 240 ml Balance 240 ml Assessment & Plan Problem List: (1) Schizoaffective disorder ICD Code: F25.9 Assessment & Plan Estimated LOS: 5 days continue antipsychotic medication. Justification for Cont. Inpt. Likely to decompensate at lower level of care. Request HC Surrog/Guard Advoc?: No Problem Qualifiers (1) Schizoaffective disorder: Qualified Code: F25.8 - Other schizoaffective disorders Robles Scott MD August 29, 2016 09:57
--- NOTE | 2016-08-29 13:34 | HHI.PYPN ---
Subjective Remarks Patient stable from psychiatric standpoint but waiting for placement. Review of Systems Except as stated in HPI: all other systems reviewed are Neg Objective Alert: Yes [place]: Person, Place, Date Mood: Calm Affect: Blunted Memory Intact: Comment (Not formally assessed) Hallucinations: Other (once again denies audiovisual hallucinations) Delusions: Yes Delusion Type: Other Suicidal: Ideation (Denies SI) Homicidal: Ideation (Denies HI) Insight/Judgment Impaired but adequate. Vitals/IOs Vital Signs Date Time Temp Pulse Resp B/P Pulse Ox O2 Delivery O2 Flow Rate FiO2 08/29/16 06:27 97.8 90 16 98/62 100 Intake and Output 08/28/16 08/28/16 08/29/16 08:00 16:00 00:00 Intake Total 240 ml Balance 240 ml Assessment & Plan Problem List: (1) Schizoaffective disorder ICD Code: F25.9 Assessment & Plan Estimated LOS: 5 days placement September 04. Justification for Cont. Inpt. Will decompensate without some adequate level of care. Request HC Surrog/Guard Advoc?: No Problem Qualifiers (1) Schizoaffective disorder: Qualified Code: F25.8 - Other schizoaffective disorders Robles Scott MD August 29, 2016 13:34
[2016-08-29 17:27] VITALS: BP 148/85; PULSE 73; RESP 16; TEMP 97.9; O2SAT 96
[2016-08-29] MEDS: diphenhydrAMINE HCL 50 MG CAP PO PRN (21:05)
[2016-08-29] MEDS: HALOPERIDOL 10 MG TAB PO SCH (21:05)
[2016-08-30 06:00] VITALS: BP 109/64; PULSE 73; RESP 17; TEMP 97.7; O2SAT 97
[2016-08-30] MEDS: POTASSIUM CHLORIDE 20 MEQ PWD PACKET PO SCH (09:00)
[2016-08-30] MEDS: NICOTINE 21 MG/24 HR PATCH T-DERMAL SCH (09:00)
[2016-08-30] MEDS: REMOVE OLD PATCH T-DERMAL SCH (09:00)
[2016-08-30] MEDS: BENZTROPINE MESYLATE 1 MG TAB PO SCH ×2 (09:36→21:38)
[2016-08-30] MEDS: LITHIUM CARBONATE 300 MG CAP PO SCH ×2 (09:36→21:39)
[2016-08-30] MEDS: LORATADINE 10 MG TAB PO SCH (09:36)
[2016-08-30] MEDS: OXYBUTYNIN CHLORIDE 5 MG TAB PO SCH ×2 (09:36→21:42)
[2016-08-30 18:00] VITALS: BP 129/81; PULSE 75; RESP 18; TEMP 97.5; O2SAT 100
--- NOTE | 2016-08-30 18:00 | HHI.PYPN ---
Subjective Remarks Pt seen and discussed [facility] staff. She is tolerating medications without side effects and is compliant. No behaioral problems on unit. She reports good sleep. She has been participating in unit activities. Objective Alert: Yes [place]: Person, Place, Date Mood: Calm Affect: Flat Memory Intact: Comment (intact) Hallucinations: Other (once again denies audiovisual hallucinations) Delusions: No Delusion Type: Other (none elicited) Suicidal: Ideation (Denies SI) Homicidal: Ideation (Denies HI) Insight/Judgment fair Vitals/IOs Vital Signs Date Time Temp Pulse Resp B/P Pulse Ox O2 Delivery O2 Flow Rate FiO2 08/30/16 06:00 97.7 73 17 109/64 97 Assessment & Plan Problem List: (1) Schizoaffective disorder ICD Code: F25.9 Assessment & Plan Continue current tx plan. Estimated LOS: days Justification for Cont. Inpt. risk of decompensation Request HC Surrog/Guard Advoc?: No Problem Qualifiers (1) Schizoaffective disorder: Qualified Code: F25.8 - Other schizoaffective disorders Siobhan Gregg MD August 30, 2016 18:00
[2016-08-30] MEDS: HALOPERIDOL 10 MG TAB PO SCH (21:38)
[2016-08-31 05:14] VITALS: BP 100/58; PULSE 73; RESP 18; TEMP 98; O2SAT 97
[2016-08-31] MEDS: REMOVE OLD PATCH T-DERMAL SCH (09:00)
[2016-08-31] MEDS: POTASSIUM CHLORIDE 20 MEQ PWD PACKET PO SCH (09:00)
[2016-08-31] MEDS: NICOTINE 21 MG/24 HR PATCH T-DERMAL SCH (09:00)
[2016-08-31] MEDS: BENZTROPINE MESYLATE 1 MG TAB PO SCH ×2 (09:41→21:04)
[2016-08-31] MEDS: LORATADINE 10 MG TAB PO SCH (09:41)
[2016-08-31] MEDS: LITHIUM CARBONATE 300 MG CAP PO SCH ×2 (09:41→21:03)
[2016-08-31] MEDS: OXYBUTYNIN CHLORIDE 5 MG TAB PO SCH ×2 (09:41→21:04)
--- NOTE | 2016-08-31 17:13 | HHI.PYPN ---
Subjective Remarks Pt seen and discussed with staff. She has been calm and cooperative with care. She has been participating in unit activiites. No disruptive behavior. She denies SI/HI or AVH. No delusional content. Tolerating medications without side effects. Objective Alert: Yes [place]: Person, Place, Date Mood: Calm Affect: Flat Memory Intact: Comment (intact) Hallucinations: Other (once again denies audiovisual hallucinations) Delusions: No Delusion Type: Other (none elicited) Suicidal: Ideation (Denies SI) Homicidal: Ideation (Denies HI) Insight/Judgment poor Vitals/IOs Vital Signs Date Time Temp Pulse Resp B/P Pulse Ox O2 Delivery O2 Flow Rate FiO2 08/31/16 05:14 98.0 73 18 100/58 97 Intake and Output 08/30/16 08/30/16 08/31/16 08:00 16:00 00:00 Intake Total 720 ml 600 ml Balance 720 ml 600 ml Assessment & Plan Problem List: (1) Schizoaffective disorder ICD Code: F25.9 Assessment & Plan Continue current tx plan. Estimated LOS: days Justification for Cont. Inpt. risk of destabilization Request HC Surrog/Guard Advoc?: No Problem Qualifiers (1) Schizoaffective disorder: Qualified Code: F25.8 - Other schizoaffective disorders Siobhan Gregg MD August 31, 2016 17:13
[2016-08-31] MEDS: diphenhydrAMINE HCL 50 MG CAP PO PRN (21:04)
[2016-08-31] MEDS: HALOPERIDOL 10 MG TAB PO SCH (21:04)
[2016-09-01 05:18] VITALS: BP 89/58; PULSE 59; RESP 18; TEMP 98.6; O2SAT 96
[2016-09-01 08:53] VITALS: BP 124/59; PULSE 99
[2016-09-01] MEDS: POTASSIUM CHLORIDE 20 MEQ PWD PACKET PO SCH (09:00)
[2016-09-01] MEDS: NICOTINE 21 MG/24 HR PATCH T-DERMAL SCH (09:00)
[2016-09-01] MEDS: REMOVE OLD PATCH T-DERMAL SCH (09:00)
[2016-09-01] MEDS: BENZTROPINE MESYLATE 1 MG TAB PO SCH ×2 (09:22→21:37)
[2016-09-01] MEDS: LITHIUM CARBONATE 300 MG CAP PO SCH ×2 (09:22→21:37)
[2016-09-01] MEDS: LORATADINE 10 MG TAB PO SCH (09:22)
[2016-09-01] MEDS: OXYBUTYNIN CHLORIDE 5 MG TAB PO SCH ×2 (09:22→21:37)
--- NOTE | 2016-09-01 12:53 | HHI.PYPN ---
Subjective Remarks This is a psychiatric progress note for August 18, 2016. Patient remains psychotic with paranoid delusions. She feels her peers are trying to harm her. She feels the "system" is against her. She does not understand that she has been kicked out of her adult living facility. Review of Systems ROS Limitations: Psychotic Except as stated in HPI: all other systems reviewed are Neg Objective Alert: Yes [place]: Person, Place, Date Mood: Calm Affect: Flat Memory Intact: Comment (intact) Hallucinations: Other (once again denies audiovisual hallucinations) Delusions: No Delusion Type: Other (none elicited) Suicidal: Ideation (Denies SI) Homicidal: Ideation (Denies HI) Insight/Judgment Impaired Vitals/IOs Vital Signs Date Time Temp Pulse Resp B/P Pulse Ox O2 Delivery O2 Flow Rate FiO2 09/01/16 08:53 99 124/59 09/01/16 05:18 98.6 18 96 Assessment & Plan Problem List: (1) Schizoaffective disorder ICD Code: F25.9 Assessment & Plan Estimated LOS: 7 days patient needs more time on antipsychotic therapy to stabilize her thinking. Justification for Cont. Inpt. Likely to decompensate at lower level of care. Request HC Surrog/Guard Advoc?: No Problem Qualifiers (1) Schizoaffective disorder: Qualified Code: F25.8 - Other schizoaffective disorders Robles Scott MD September 01, 2016 12:53
--- NOTE | 2016-09-01 12:55 | HHI.PYPN ---
Subjective Remarks Patient seen and examined with nursing staff in coverage for Dr. Scott. Chart reviewed. Case discussed with nursing staff reports the patient has been no behavioral problem and in fact is in very good spirits because her discharge is anticipated later this week to assisted living facility. On my examination today, the patient does indeed seem more euthymic than in my previous contact with her. She reports that she is looking forward to placement. No psychotic symptoms reported. Denies side effects from medications. No physical complaints. Review of Systems ROS Limitations: Poor Historian Except as stated in HPI: all other systems reviewed are Neg Objective Alert: Yes [place]: Person, Place, Date Mood: Calm Affect: Blunted Memory Intact: Comment (intact) Hallucinations: Other (no AVH) Delusions: No Delusion Type: Other (no delusions) Suicidal: Ideation (no SI) Homicidal: Ideation (no HI) Insight/Judgment Poor Remarks No motor abnormalities noted Labs Labs reviewed Vitals/IOs Vital Signs Date Time Temp Pulse Resp B/P Pulse Ox O2 Delivery O2 Flow Rate FiO2 09/01/16 08:53 99 124/59 09/01/16 05:18 98.6 18 96 Assessment & Plan Problem List: (1) Schizoaffective disorder ICD Code: F25.9 Assessment & Plan Continue current psychotropic medications as ordered. Continue to monitor on the inpatient unit. Continue other medications and care as ordered. Justification for Cont. Inpt. High risk for decompensation in a less restrictive environment. Discharge Planning Per Dr. Scott Request HC Surrog/Guard Advoc?: No Problem Qualifiers (1) Schizoaffective disorder: Qualified Code: F25.8 - Other schizoaffective disorders Jairon Milner MD September 01, 2016 12:55
[2016-09-01 17:12] VITALS: BP 125/90; PULSE 74; RESP 18; TEMP 98.4; O2SAT 100
[2016-09-01] MEDS: HALOPERIDOL 10 MG TAB PO SCH (21:37)
[2016-09-01] MEDS: diphenhydrAMINE HCL 50 MG CAP PO PRN (21:38)
[2016-09-02 06:00] VITALS: BP 111/74; PULSE 91; RESP 16; TEMP 98.7; O2SAT 97
[2016-09-02] MEDS: LITHIUM CARBONATE 300 MG CAP PO SCH ×2 (08:25→21:48)
[2016-09-02] MEDS: REMOVE OLD PATCH T-DERMAL SCH (08:25)
[2016-09-02] MEDS: POTASSIUM CHLORIDE 20 MEQ PWD PACKET PO SCH (08:25)
[2016-09-02] MEDS: OXYBUTYNIN CHLORIDE 5 MG TAB PO SCH ×2 (08:25→21:47)
[2016-09-02] MEDS: BENZTROPINE MESYLATE 1 MG TAB PO SCH ×2 (08:25→21:47)
[2016-09-02] MEDS: LORATADINE 10 MG TAB PO SCH (08:25)
[2016-09-02] MEDS: NICOTINE 21 MG/24 HR PATCH T-DERMAL SCH (08:26)
--- NOTE | 2016-09-02 12:36 | HHI.PYPN ---
Subjective Remarks Awaiting placement this . Review of Systems Except as stated in HPI: all other systems reviewed are Neg Objective Alert: Yes [place]: Person, Place, Date Mood: Calm Affect: Blunted Memory Intact: Comment (intact) Hallucinations: Other (no AVH) Delusions: No Delusion Type: Other (no delusions) Suicidal: Ideation (no SI) Homicidal: Ideation (no HI) Insight/Judgment [place] to be baseline. Vitals/IOs Vital Signs Date Time Temp Pulse Resp B/P Pulse Ox O2 Delivery O2 Flow Rate FiO2 09/01/16 17:12 98.4 74 18 125/90 100 Assessment & Plan Problem List: (1) Schizoaffective disorder ICD Code: F25.9 Assessment & Plan Estimated LOS: 2 days needs placement. Justification for Cont. Inpt. Likely to decompensate at lower level of care. Request HC Surrog/Guard Advoc?: No Problem Qualifiers (1) Schizoaffective disorder: Qualified Code: F25.8 - Other schizoaffective disorders Robles Scott MD September 02, 2016 12:36
--- NOTE | 2016-09-02 14:41 | PD.TTN ---
Present for Treatment Team Treatment Team Staff: Provider, Psych Therapist Patient Problems 1. Discharge planning 2. Medication compliance 3. Knowledge deficit 4. Lack of coping skills Progress Toward Goals Provider Input: There is no change in treatment for patient. Patient has placement to [facility] on September 04, 2016. Psych Therapist Input: Patient presents pleasant, intrusive, childlike, cooperative, affect blunted. Patient made good eye contact. Patient's speech is unclear, organized with pressure. Patient is exit seeking. Patient is eating and sleeping well. Patient denies suicidal and homicidal ideation. Patient does not present internally stimulated or delusional . Patient does present with OCD behaviors being obsessive with drinking water, asking the same questions over. Patient does have placement at [facility] September 04, 2016. Patient will be transported by [employer]. Tonja Natarajan [facility] September 02, 2016 14:41
[2016-09-02 16:52] VITALS: BP 131/87; PULSE 71; RESP 18; TEMP 97.9; O2SAT 96
[2016-09-02] MEDS: HALOPERIDOL 10 MG TAB PO SCH (21:47)
[2016-09-03 06:12] VITALS: BP 99/51; PULSE 60; RESP 18; TEMP 98.5; O2SAT 98
[2016-09-03] MEDS: LORATADINE 10 MG TAB PO SCH (08:27)
[2016-09-03] MEDS: LITHIUM CARBONATE 300 MG CAP PO SCH ×2 (08:27→20:52)
[2016-09-03] MEDS: POTASSIUM CHLORIDE 20 MEQ PWD PACKET PO SCH (08:27)
[2016-09-03] MEDS: OXYBUTYNIN CHLORIDE 5 MG TAB PO SCH ×2 (08:27→20:52)
[2016-09-03] MEDS: BENZTROPINE MESYLATE 1 MG TAB PO SCH ×2 (08:27→20:52)
[2016-09-03] MEDS: NICOTINE 21 MG/24 HR PATCH T-DERMAL SCH (08:29)
[2016-09-03] MEDS: REMOVE OLD PATCH T-DERMAL SCH (08:29)
[2016-09-03 11:01] VITALS: BP 108/74; PULSE 80; RESP 17; O2SAT 98
[2016-09-03] MEDS ORDERED: TUBERCULIN, PPD 5 UNITS/0.1 ML SYRINGE I-DERMAL ONE (13:00)
--- NOTE | 2016-09-03 15:45 | HHI.PYPN ---
Subjective Remarks I am assuming care of this patient from Dr. Scott. Patient seen and examined with nurse. Chart reviewed. Case discussed with nursing staff who reports the patient has been no behavioral problem on the unit. On my examination today, the patient remains in good spirits. She is looking forward to discharge to a facility tomorrow. She denies any audiovisual hallucinations. Denies any suicidal or homicidal ideation. No issues with mood. Denies side effects from medications. No physical complaints. Review of Systems Except as stated in HPI: all other systems reviewed are Neg Objective Alert: Yes [place]: Person, Place, Date Mood: Calm Affect: Euthymic Memory Intact: Comment (seems fairly intact on clinical exam) Hallucinations: Other (denies audiovisual hallucinations) Delusions: No Delusion Type: Other (no delusional material) Suicidal: Ideation (denies suicidal ideation) Homicidal: Ideation (denies homicidal ideation) Insight/Judgment Poor Remarks No abnormal motor movements noted. Thought process fairly linear. Grooming and hygiene fair. Labs Labs reviewed. Vitals/IOs Vital Signs Date Time Temp Pulse Resp B/P Pulse Ox O2 Delivery O2 Flow Rate FiO2 09/03/16 11:01 80 17 108/74 98 09/03/16 06:12 98.5 Assessment & Plan Problem List: (1) Schizoaffective disorder ICD Code: F25.9 Assessment & Plan Continue current psychiatric medications as ordered. Facility has requested a PPD be placed, and I have ordered this. Continue other medications and care as ordered. Justification for Cont. Inpt. Final discharge planning Discharge Planning Anticipate discharge to facility tomorrow, . Request HC Surrog/Guard Advoc?: No Problem Qualifiers (1) Schizoaffective disorder: Qualified Code: F25.8 - Other schizoaffective disorders Jairon Milner MD September 03, 2016 15:45
[2016-09-03 16:00] VITALS: BP 128/90; PULSE 73; RESP 18; TEMP 98.1; O2SAT 98
[2016-09-03] MEDS: HALOPERIDOL 10 MG TAB PO SCH (20:53)
[2016-09-04 05:30] VITALS: BP 81/47; PULSE 57; RESP 16; TEMP 96.7; O2SAT 97
[2016-09-04] MEDS ORDERED: [UNRECOGNIZED DRUG - CODE] PO (07:58)
[2016-09-04] MEDS ORDERED: VENTAER INH (07:58)
[2016-09-04] MEDS ORDERED: POTA10PO PO (07:58)
[2016-09-04] MEDS ORDERED: OXYB5TAB10 PO (07:58)
[2016-09-04] MEDS ORDERED: HALO10TA PO (07:58)
[2016-09-04] MEDS ORDERED: OLAN15TA PO (07:58)
[2016-09-04] MEDS ORDERED: Benztropine PO (07:58)
[2016-09-04] MEDS ORDERED: LITH300C2 PO (07:58)
--- NOTE | 2016-09-04 07:58 | HHI.DS ---
Psychiatry Discharge Summary Inpatient Psychiatric care?: Yes Advance Directive: No Reason Not Provided: Due to Patient Condition Mental Health AdvanceDirective: No Health Care Proxy: No Admission Admission Date August 10, 2016 at 14:58 Admission Diagnosis: (1) Schizoaffective disorder ICD Code: F25.9 Brief History Ms. Roy is a 51-year-old female with a history of schizoaffective disorder brought in by [employer] under a [place] act alleging that she threatened to slit her wrists. Reviewing the electronic medical record, I note the patient was admitted most recently here under Dr. Chery in 2004. Patient has apparently been getting most of her inpatient/outpatient psychiatric care through [facility] since then. Patient seen and examined. Chart reviewed. Case discussed with nursing staff. On my examination today, the patient admits to making suicidal threats to law enforcement but says "I made that up because I wanted to go somewhere." Patient apparently means to say that she wished to get out of her [place] health care facility for some time. She denies any suicidal ideation at this time. No homicidal ideation. Patient denies issues with mood but her affect is somewhat irritable. She denies audiovisual hallucinations. No car delusions. She is noted to be somewhat intrusive and discharge focused. The remainder of the psychiatric ROS is negative. Past psychiatric history: Patient has a history of schizoaffective disorder. She follows at [facility]. She reports that she was hospitalized on the order of several weeks ago at [facility]. She endorses a history of suicide attempts by cutting her wrists. Tobacco Use In Past 30 Days: No Tobacco Past 30 Days Alcohol Use: Never Hospital Course Patient was admitted to a locked, inpatient psychiatric unit. Appropriate precautions were in place throughout patient's hospital stay. Patient was seen and examined on the unit by psychiatry and also visited by counselor. Medications were adjusted. Patient is tolerating discharge medication well without side effects. Patient had improvement in her presenting psychiatric symptomatology during the course of her hospital stay. There was no evidence of any suicidality or homicidality on the inpatient unit. Patient's behavior improved with the benefit of psychopharmacologic treatment. Counselor has arranged for discharge to [facility], and patient is agreeable to this. On the day of discharge: Patient seen and examined. Chart reviewed. Case discussed with nursing staff reports the patient has been no behavioral problem overnight. On my examination today, the patient is excited to go to facility. Patient denies any anxiety associated with this transition. No issues with mood. No depressive or hypomanic/manic symptoms in evidence. Denies any suicidal or homicidal ideation, intent or plan. Denies any audiovisual hallucinations. No evident delusional beliefs. No side effects from medications. No physical complaints. Weighing the acute, chronic, and protective factors and based on the available evidence, I cutting and printing machine operator to a reasonable degree of medical certainty that the patient is at low imminent risk of harm to self or others from a mental illness as defined under the [place] act and her level of function is adequate for planned level of outpatient care. The patient has maximized benefit from this inpatient psychiatric hospital stay and will be discharged to facility today with psychiatric follow-up as arranged by counselor. Patient is also to follow-up with primary care. I have counseled the patient to return to the psychiatric emergency room for any concerning psychiatric symptoms. Results Blood Pressure 98/81 Vital Signs Date Time Temp Pulse Resp B/P Pulse Ox O2 Delivery O2 Flow Rate FiO2 09/04/16 05:30 96.7 57 16 81/47 97 Item Value Date Time White Blood Count 10.2 TH/MM3 08/09/162205 Hemoglobin 13.9 GM/DL 08/09/162205 Platelet Count 112 TH/MM3 L 08/09/162205 Sodium Level 142 MEQ/L 08/16/16 0835 Potassium Level 4.0 MEQ/L 08/16/16 0835 Chloride Level 108 MEQ/L H 08/16/16 0835 Carbon Dioxide Level 28.9 MEQ/L 08/16/16 0835 Blood Urea Nitrogen 18 MG/DL 08/16/16 0835 Creatinine 0.97 MG/DL 08/16/16 0835 Random Glucose 95 MG/DL 08/16/16 0835 Hemoglobin A1c 4.9 % 08/11/16 0826 Aspartate Amino Transf (AST/SGOT) 24 U/L 08/09/162205 Alanine Aminotransferase (ALT/SGPT) 51 U/L 08/09/16 220 Alkaline Phosphatase 102 U/L 08/09/166 Beta HCG, Qualitative LESS THAN 1 MIU/ML 08/10/16 1648 Thyroid Stimulating Hormone 3rd Gen 0.838 uIU/ML 08/11/16 0826 [place] Level 0.3 MEQ/L L 08/10/16 1648 [place] Level 0.5 MEQ/L 08/16/16 0835 Summary of Procedures None done Imaging None done Pending results at discharge: No Medications # of Antipsychotic meds at D/C: 2 Appropriate >1 Antipsych meds?: 4 Approp Antipsych med options 1 - Minimum of three failed multiple trials of monotherapy. 2 - Documented plan to taper to monotherapy due to previous use of multiple meds OR cross-taper in progress at D/C. 3 - Documentation of augmentation of Clozapine. 4 - Justification other than those listed in allowable values 1-3, document here : Multiple antipsychotics required for acute stabilization. Discharge Discharge Date: Sep 04, 2016 Discharge Diagnosis: (1) Schizoaffective disorder Diagnosis: Principal (stabilized) ICD Code: F25.9 GAF on discharge is 55. Mental Status Exam at Disch Patient is casually dressed. She is fairly well groomed and maintaining basic hygiene. She is awake and alert and oriented to person and hospital at least. No abnormal motor movements noted. Speech is within normal limits for rate, tone and volume. Language and fund of knowledge remain average to perhaps slightly reduced. Mood is reportedly good although affect is somewhat blunted. Thought process linear. No loosening of associations. No delusional material elicited. Denies audiovisual hallucinations. Denies suicidal or homicidal ideation, intent or plan. Insight and judgment are fair to poor, likely chronically so. Pt Condition on Discharge: Stable Discharge Disposition: ACLF/SARA Discharge Instructions Diet Instructions: As Tolerated, No Restrictions Activities you can perform: Weight Bearing as Wero Scheduled Appointment: as per counselor's notes New Orders: BASIC METABOLIC PROF - 1 Week New Medications: Albuterol 18 GM Inh (Ventolin Hfa 18 GM Inh) 90 Mcg/Act Aer 2 PUFF INH Q4H PRN SHORTNESS OF BREATH Days 15 Ref 1 INHALER Haloperidol (Haloperidol) 10 Mg Tab 10 MG PO HS Mental Health Days 15 Ref 1 TAB [place] Carbonate ([place] Carbonate) 300 Mg Cap 300 MG PO BID Mental Health Days 15 Ref 1 CAP Loratadine (Gnp Loratadine) 10 Mg Tab 10 MG PO DAILY Allergies Days 15 Ref 1 TAB Olanzapine (Olanzapine) 15 Mg Tab 15 MG PO HS Mental Health Days 15 Ref 1 TAB Oxybutynin (Ditropan) 5 Mg Tab 5 MG PO Q12HR Health Days 15 Ref 1 TAB Potassium Chloride Powder (Potassium Chloride Powder) 20 Meq Powderpack 20 MEQ PO DAILY Nutritional Supplement Days 15 Ref 1 PACKET ([Benztropine]) 1 MG TAB 1 MG PO BID Side effect management Days 15 Ref 1 TAB Discontinued Medications: Albuterol 8.5 GM Inh (Proair Hfa 8.5 GM Inh) 90 Mcg/Act Aer 2 PUFF INH Q4-6H 108 mcg/actuation PRN SHORTNESS OF BREATH #1 Ref 0 INHALER Benztropine (Benztropine) 1 Mg Tab 1 MG PO BID #60 Ref 0 TAB Haloperidol (Haloperidol) 10 Mg Tab 10 MG PO HS Ref 0 TAB Haloperidol Decanoate Inj (Haldol Decanoate Inj) 100 Mg/Ml Inj 100 MG IM Q28D Schizophrenia #1 Ref 0 VIAL [place] Carbonate ([place] Carbonate) 300 Mg Cap 300 MG PO BID Ref 0 CAP Loratadine (Claritin) 10 Mg Cap 10 MG PO DAILY Allergy Management Ref 0 CAP Lorazepam (Lorazepam) 0.5 Mg Tab 0.5 MG PO BID PRN ANXIETY Ref 0 TAB Olanzapine (Olanzapine) 15 Mg Tab 15 MG PO HS #30 Ref 0 TAB Oxybutynin (Ditropan) 5 Mg Tab 5 MG PO Q12HR Urinary Symptom Managemen #60 Ref 0 TAB Potassium Chloride ER (Potassium Chloride ER) 20 Meq Tab 20 MEQ PO DAILY Electrolyte Replacement #30 Ref 0 TAB Discharge Time <= 30 minutes Discharge/Advance Care Plan Health Problems: (1) Schizoaffective disorder Goals to promote your health * To prevent worsening of your condition and complications * To maintain your health at the optimal level Directions to meet your goals Take your medications as prescribed Follow your dietary instruction Follow activity as directed Keep your appointments as scheduled Take your immunizations and boosters as scheduled If your symptoms worsen call your PCP, if no PCP go to Urgent Care Center or Emergency Room For 24 questions related to your inpatient stay or results of tests pending at discharge, please contact Dr. Jairon Milner at Smoking is Dangerous to Your Health. Avoid second hand smoking Problem Qualifiers (1) Schizoaffective disorder: Qualified Code: F25.8 - Other schizoaffective disorders Jairon Milner MD Sep 04, 2016 07:58
[2016-09-04] MEDS: BENZTROPINE MESYLATE 1 MG TAB PO SCH (08:51)
[2016-09-04] MEDS: OXYBUTYNIN CHLORIDE 5 MG TAB PO SCH (08:51)
[2016-09-04] MEDS: LORATADINE 10 MG TAB PO SCH (08:51)
[2016-09-04] MEDS: LITHIUM CARBONATE 300 MG CAP PO SCH (08:51)
[2016-09-04] MEDS: LORazepam 1 MG TAB PO PRN (08:53)
[2016-09-04] MEDS: POTASSIUM CHLORIDE 20 MEQ PWD PACKET PO SCH (08:54)
[2016-09-04 08:55] VITALS: BP 98/60
[2016-09-04] MEDS: REMOVE OLD PATCH T-DERMAL SCH (08:55)
[2016-09-04] MEDS: NICOTINE 21 MG/24 HR PATCH T-DERMAL SCH (08:55)
== END 2016-09-04 11:00 | DRG 885 ==
LOC: NEPD 21:46 → NEDA 08-10 14:58 → H260 08-10 17:10
PROVIDERS: ADMIT Psychiatry & Neurology Psychiatry; ATTEND Psychiatry & Neurology Psychiatry
DX: F25.9 Schizoaffective disorder, unspecified (principal); B19.20 Unspecified viral hepatitis C without hepatic coma; Z88.0 Allergy status to penicillin; Z91.5 Personal history of self-harm; F17.210 Nicotine dependence, cigarettes, uncomplicated; N28.9 Disorder of kidney and ureter, unspecified
CPT/HCPCS: 80048; 80053; 80061; 80178; 80307; 83036; 84443; 84703; 85025; 99284; Q0163

== ENCOUNTER 2016-09-04 16:44 | Observation (INO) | payer MEDICAID, OTHER ==
[~2016-09-04] VITALS: Ht 167.6 cm; Wt 67.0 kg
[~2016-09-04 16:44] MED LIST changes: +Benztropine PO; -FURO20TA PO; +HALO100P IM; +POTA10PO PO; +VENTAER INH; +[UNRECOGNIZED DRUG - CODE] PO
[2016-09-04 17:25] VITALS: BP 139/87; PULSE 88; RESP 18; TEMP 98.9; O2SAT 97
--- NOTE | 2016-09-04 17:44 | PD ---
HPI Chief Complaint: Chest Pain Time Seen by Provider: 17:40 Travel History International Travel<30 days: No Contact w/Intl Traveler<30days: No Traveled to known affect area: No History of Present Illness HPI 51-year-old female with a history of bipolar disorder and schizophrenia is brought to the emergency department by EMS for evaluation of sharp midsternal chest pain intermittently for one week. States that today the pain was worse which is why she called EMS. She denies any shortness of breath, difficulty breathing, lightheadedness, dizziness, nausea, vomiting, diarrhea, constipation , swelling of the extremities, fever, chills, night sweats. She does state she has a mild dry cough that has been ongoing for several months, admits to smoking cigarettes. She denies any aggravating or alleviating factors. She denies any history of heart disease or [place]. She denies any recent alcohol or drug use. States that she used to drink alcohol and use different drugs including IV drugs but has not used in over 1 years. Per EMS report the patient left her fdc/assisted living facility and has not been there in several days. No other complaints. PCP Dr. Blakely. [facility] Past Medical History Asthma: No Bipolar Disorder: Yes Depression: Yes (MANIC DEPRESSIVE DISORDER) COPD: No Diabetes: No Diminished Hearing: No Hepatitis: Yes (HEP C) Seizures: Yes ?: Not Past Surgical History Section: Yes Gynecologic Surgery: Yes (C/SECTIONS X2) Hysterectomy: Yes Social History Alcohol Use: No (states sober for one year.) Tobacco Use: Yes (1 PACK DAILY) Substance Use: Yes (SOBER FOR THE PAST YEAR, SUBSTANCE ABUSE.) Allergies-Medications (Allergen,Severity, Reaction): Coded Allergies: Penicillin (Verified Allergy, Severe, 08/04/16) Reported Meds & Prescriptions Reported Meds & Active Scripts Active Potassium Chloride Powder (Potassium Chloride) 20 Meq Powderpack 20 Meq PO DAILY 15 Days Ditropan (Oxybutynin Chloride) 5 Mg Tab 5 Mg PO Q12HR 15 Days Olanzapine 15 Mg Tab 15 Mg PO HS 15 Days Gnp Loratadine (Loratadine) 10 Mg Tab 10 Mg PO DAILY 15 Days [place] Carbonate 300 Mg Cap 300 Mg PO BID 15 Days Haloperidol 10 Mg Tab 10 Mg PO HS 15 Days [Benztropine] 1 MG Tab 1 Mg PO BID 15 Days Ventolin Hfa 18 GM Inh (Albuterol Sulfate) 90 Mcg/Act Aer 2 Puff INH Q4H PRN 15 Days Review of Systems Except as stated in HPI: all other systems reviewed are Neg Physical Exam Narrative GENERAL: Well-nourished and well-developed female patient in no acute distress who is nontoxic appearing. SKIN: Warm and dry. Erythematous ppd noted to right forearm. HEAD: Normocephalic and atraumatic. EYES: No injection, drainage, or hyphema noted. PERRLA. EOMI. ENT: No nasal drainage noted. Oropharynx is clear . NECK: Supple and the trachea is midline. CARDIOVASCULAR: Regular rate and rhythm. RESPIRATORY: Breath sounds are equal bilaterally with no accessory muscle use, wheezing, rhonchi, or crackles. GASTROINTESTINAL: Abdomen is soft, non-tender, and nondistended. MUSCULOSKELETAL: No obvious deformities, swelling, cyanosis, or ecchymosis is present throughout the upper and lower extremities. Patient has full range of motion without any signs of neurovascular compromise. NEUROLOGICAL: Awake, alert, and oriented. Normal speech and gait. Cranial nerves are grossly intact. Data Data Last Documented VS Vital Signs Date Time Temp Pulse Resp B/P Pulse Ox O2 Delivery O2 Flow Rate FiO2 09/04/16 17:50 94 18 09/04/16 17:50 98 Nasal Cannula 1 09/04/16 17:25 98.9 139/87 Orders Electrocardiogram (09/04/16 17:33) Basic Metabolic Panel (Bmp) (09/04/16 17:33) Ckmb (Isoenzyme) Profile (09/04/16 17:33) Complete Blood Count With Diff (09/04/16 17:33) Magnesium (Mg) (09/04/16 17:33) Prothrombin Time / Inr (Pt) (09/04/16 17:33) Act Partial Throm Time (Ptt) (09/04/16 17:33) Troponin I (09/04/16 17:33) Chest, Single Ap (09/04/16 17:33) Ecg Monitoring (09/04/16 17:33) Bilateral Bp Monitoring (09/04/16 17:33) Iv Access Insert/Monitor (09/04/16 17:33) Oximetry (09/04/16 17:33) Oxygen Administration (09/04/16 17:33) Sodium Chloride 0.9% Flush (Ns Flush) (09/04/16 17:45) Aspirin Chew (Aspirin Chew) (09/04/16 18:15) Sodium Chlor 0.9% 1000 Ml Inj (Ns 1000 M (09/04/16 18:48) Alcohol (Ethanol) (09/04/16 19:02) Drug Screen, Random Urine (09/04/16 19:02) Admit Order (Ed Use Only) (09/04/16 19:11) Labs Laboratory Tests Test 09/04/16 17:50 White Blood Count 9.3 TH/MM3 Red Blood Count 3.87 MIL/MM3 Hemoglobin 12.5 GM/DL Hematocrit 35.9 % Mean Corpuscular Volume 92.7 FL Mean Corpuscular Hemoglobin 32.4 PG Mean Corpuscular Hemoglobin 34.9 % Concent Red Cell Distribution Width 12.1 % Platelet Count 123 TH/MM3 Mean Platelet Volume 8.0 FL Neutrophils (%) (Auto) 75.3 % Lymphocytes (%) (Auto) 14.0 % Monocytes (%) (Auto) 5.9 % Eosinophils (%) (Auto) 4.2 % Basophils (%) (Auto) 0.6 % Neutrophils # (Auto) 7.0 TH/MM3 Lymphocytes # (Auto) 1.3 TH/MM3 Monocytes # (Auto) 0.5 TH/MM3 Eosinophils # (Auto) 0.4 TH/MM3 Basophils # (Auto) 0.1 TH/MM3 CBC Comment DIFF FINAL Differential Comment Prothrombin Time 10.9 SEC Prothromb Time International 1.0 RATIO Ratio Activated Partial 25.0 SEC Thromboplast Time Sodium Level 126 MEQ/L Potassium Level 3.8 MEQ/L Chloride Level 94 MEQ/L Carbon Dioxide Level 27.2 MEQ/L Anion Gap 5 MEQ/L Blood Urea Nitrogen 15 MG/DL Creatinine 0.92 MG/DL Estimat Glomerular Filtration 65 ML/MIN Rate Random Glucose 86 MG/DL Calcium Level 8.9 MG/DL Magnesium Level 2.0 MG/DL Total Creatine Kinase 83 U/L Troponin I LESS THAN 0.02 NG/ML MDM Medical Decision Making Medical Screen Exam Complete: Yes Emergency Medical Condition: Yes Differential Diagnosis Pleurisy versus chest wall pain versus musculoskeletal pain versus costochondritis versus ACS unlikely Narrative Course 51-year-old female presents to the emergency department for evaluation of chest pain. Patient is afebrile, vital signs are stable. Physical examination is unremarkable. IV access is obtained, labs were drawn and sent. Patient is placed on cardiac telemetry and pulse oximetry monitoring. EKG shows normal sinus rhythm with no acute ST elevations or depressions. The patient has a positive ppd on the right forearm, per fdc they administered this test. She has no active signs or symptoms of TB. Chest x-ray negative for any acute abnormalities. CBC is unremarkable. BMP shows hyponatremia with a sodium of 126. Troponin is less than 0.02. Coags are unremarkable. I reviewed the patient's recent lab values that were done 2 weeks ago and her sodium was within normal limits. This is an acute drop in her sodium. The patient does have a flat affect and is somewhat bizarre however she does have schizophrenia and it is difficult to say whether her behavior is secondary to her mental illness or her acute hyponatremia. The patient will be admitted to medicine service for hyponatremia and for chest pain. I discussed the case with my attending physician Dr. Tijerina who is aware of the patients history, physical examination findings, and treatment plan. Physician Communication Physician Communication I spoke with Dr. Pena [facility] who agrees to admit the patient under her service for observation. Diagnosis Primary Impression: Hyponatremia Additional Impression: Chest pain Qualified Code: R07.9 - Chest pain, unspecified type Admitting Information Admitting Physician Requests: Observation Paulette Henriquez Sep 04, 2016 17:43
[2016-09-04] MEDS ORDERED: SODIUM CHLORIDE 0.9% FLUSH 10 ML FLUSH IVF PRN (17:45)
[2016-09-04 17:50] VITALS: PULSE 94; RESP 18
--- NOTE | 2016-09-04 18:01 | RADRPT ---
EXAM DATE/TIME: 09/04/2016 17:50 [facility] COMPARISON: No previous studies available for comparison. INDICATIONS : Chest pain, positive PPD. MEDICAL HISTORY : None. SURGICAL HISTORY : None. ENCOUNTER: Initial ACUITY: 1 week PAIN SCORE: 3/10 LOCATION: Bilateral chest FINDINGS: A single view of the chest demonstrates the lungs to be symmetrically aerated without evidence of mas s, infiltrate or effusion. The cardiomediastinal contours are unremarkable. Osseous structures are intact. CONCLUSION: Normal examination. Torito Clancy Jr., MD on September 04, 2016 at 17:58 Board Certified Radiologist. This report was verified electronically.
[2016-09-04 18:04] LABS: BASOPHIL # 0.1 TH/MM3 (0-0.2); BASOPHIL % 0.6 % (0.0-2.0); EOSINOPHIL # 0.4 TH/MM3 (0-0.4); EOSINOPHIL % 4.2 % (0.0-4.0); HEMATOCRIT 35.9 % (35.0-46.0); HEMO FLAGS DIFF FINAL; LYMPHOCYTE # 1.3 TH/MM3 (1.0-4.8); MEAN CELL VOLUME 92.7 FL (80.0-100.0); MEAN CORPUSCULAR HEMOGLOBIN 32.4 PG (27.0-34.0); MEAN CORPUSCULAR HGB CONC 34.9 % (32.0-36.0); MONO % 5.9 % (0.0-8.0); NEUT % 75.3 % (16.0-70.0); PLATELET COUNT 123 TH/MM3 (150-450); RED BLOOD COUNT 3.87 MIL/MM3 (4.00-5.30); RED CELL DISTRIBUTION WIDTH 12.1 % (11.6-17.2); WHITE BLOOD COUNT 9.3 TH/MM3 (4.0-11.0)
[2016-09-04 18:15] LABS: PROTHROMBIN TIME - PATIENT 10.9 SEC (9.8-11.6)
[2016-09-04] MEDS ORDERED: ASPIRIN 81 MG CHEW TAB PO ONE (18:15)
[2016-09-04 18:24] LABS: ANION GAP 5 MEQ/L (5-15); BICARBONATE 27.2 MEQ/L (21.0-32.0); BLOOD UREA NITROGEN 15 MG/DL (7-18); CHLORIDE 94 MEQ/L (98-107); GLOMERULAR FILTRATION RATE 65 ML/MIN (>89); POTASSIUM 3.8 MEQ/L (3.5-5.1); SODIUM (NA) 126 MEQ/L (136-145)
[2016-09-04 18:47] LABS: CREATINE KINASE 83 U/L (26-192)
[2016-09-04] MEDS ORDERED: SODIUM CHLOR 0.9% 1000 ML INJ 1,000 ML IV SCH ×2 (18:48→19:13)
[2016-09-04] MEDS ORDERED: SODIUM CHLORIDE 0.9% FLUSH 10 ML FLUSH IV FLUSH PRN (19:15)
[2016-09-04] MEDS ORDERED: NALOXONE HCL 0.4 MG/ML AMP IV PRN (19:15)
[2016-09-04 19:26] VITALS: BP 137/63; PULSE 93; RESP 18; O2SAT 99
[2016-09-04 19:59] LABS: AMPHETAMINE, URINE NEG (NEG); BARBITURATES, URINE NEG (NEG); COCAINE, URINE NEG (NEG)
--- NOTE | 2016-09-04 20:11 | HHI.HP ---
HPI Service [facility] Primary Care Physician Sachin Blakely Admission Diagnosis Hyponatremia, Chest Pain Diagnoses: Travel History International Travel<30 Days: No Contact w/Intl Traveler <30 Da: No Traveled to Known Affected Are: No History of Present Illness chest hurting while walking went to store adn told them to call 911 mid sternal no radiation no association lasted 5min , then came back no shortness of breath no stress test smoker- a pack a day, at least 20yrs adopted threw up yesterday adn today , just once each yellow color no burnign or pain no freq no diarrhea no sob or syncope Past Family Social History Past Medical History hepatitis seizures- take dilantin Past Surgical History c section Allergies: Coded Allergies: Penicillin (Verified Allergy, Severe, 08/04/16) Family History adopted Social History a pack a day for more than 20yrs no drinking , no drugs Physical Exam Vital Signs Vital Signs Date Time Temp Pulse Resp B/P Pulse Ox O2 Delivery O2 Flow Rate FiO2 09/04/16 19:26 93 18 137/63 99 Room Air 09/04/16 17:50 94 18 09/04/16 17:50 98 Nasal Cannula 1 09/04/16 17:25 98.9 88 18 139/87 97 Physical Exam GENERAL: This is a well-nourished, well-developed patient, in no apparent distress. SKIN: No rashes, ecchymoses or lesions. Cool and dry. HEAD: Atraumatic. Normocephalic. No temporal or scalp tenderness. EYES: Pupils equal round and reactive. Extraocular motions intact. No scleral icterus. No injection or drainage. ENT: Nose without bleeding, purulent drainage or septal hematoma. Throat without erythema, tonsillar hypertrophy or exudate. Uvula midline. Airway patent. NECK: Trachea midline. No JVD or lymphadenopathy. Supple, nontender, no meningeal signs. CARDIOVASCULAR: Regular rate and rhythm without murmurs, gallops, or rubs. RESPIRATORY: Clear to auscultation. Breath sounds equal bilaterally. No wheezes , rales, or rhonchi. GASTROINTESTINAL: Abdomen soft, non-tender, nondistended. No hepato-splenomegaly , or palpable masses. No guarding. MUSCULOSKELETAL: Extremities without clubbing, cyanosis, or edema. No joint tenderness, effusion, or edema noted. No calf tenderness. Negative Homans sign bilaterally. NEUROLOGICAL: Awake and alert. Cranial nerves II through XII intact. Motor and sensory grossly within normal limits. Five out of 5 muscle strength in all muscle groups. Normal speech. Laboratory Laboratory Tests Test 09/04/16 09/04/16 17:50 19:15 White Blood Count 9.3 Red Blood Count 3.87 Hemoglobin 12.5 Hematocrit 35.9 Mean Corpuscular Volume 92.7 Mean Corpuscular Hemoglobin 32.4 Mean Corpuscular Hemoglobin 34.9 Concent Red Cell Distribution Width 12.1 Platelet Count 123 Mean Platelet Volume 8.0 Neutrophils (%) (Auto) 75.3 Lymphocytes (%) (Auto) 14.0 Monocytes (%) (Auto) 5.9 Eosinophils (%) (Auto) 4.2 Basophils (%) (Auto) 0.6 Neutrophils # (Auto) 7.0 Lymphocytes # (Auto) 1.3 Monocytes # (Auto) 0.5 Eosinophils # (Auto) 0.4 Basophils # (Auto) 0.1 CBC Comment DIFF FINAL Differential Comment Prothrombin Time 10.9 Prothromb Time International 1.0 Ratio Activated Partial 25.0 Thromboplast Time Sodium Level 126 Potassium Level 3.8 Chloride Level 94 Carbon Dioxide Level 27.2 Anion Gap 5 Blood Urea Nitrogen 15 Creatinine 0.92 Estimat Glomerular Filtration 65 Rate Random Glucose 86 Calcium Level 8.9 Magnesium Level 2.0 Total Creatine Kinase 83 Troponin I LESS THAN 0.02 Urine Opiates Screen NEG Urine Barbiturates Screen NEG Urine Amphetamines Screen NEG Urine Benzodiazepines Screen NEG Urine Cocaine Screen NEG Urine Cannabinoids Screen NEG Ethyl Alcohol Level LESS THAN 3 Result Diagram: 09/04/16174909/04/161749 Assessment and Plan Assessment and Plan hyponatremia - likely from drinking too much water - d/c iv fluids serum osmolarity, urine osmolarity and electrolytes Sameer Pena MD Sep 04, 2016 20:11
[2016-09-04 20:44] VITALS: BP 109/72; TEMP 98.5
[2016-09-04 22:45] VITALS: PULSE 73
[2016-09-04] MEDS: BENZTROPINE MESYLATE 1 MG TAB PO SCH (23:09)
[2016-09-04] MEDS: HALOPERIDOL 10 MG TAB PO SCH (23:09)
[2016-09-04] MEDS: LITHIUM CARBONATE 300 MG CAP PO SCH (23:09)
[2016-09-04] MEDS: OXYBUTYNIN CHLORIDE 5 MG TAB PO SCH (23:09)
[2016-09-04] MEDS: SODIUM CHLORIDE 0.9% FLUSH 10 ML FLUSH IV FLUSH SCH (23:10)
[2016-09-04 23:41] VITALS: BP 94/58; PULSE 70; RESP 18; TEMP 98.8; O2SAT 97
[2016-09-05 00:44] LABS: ANION GAP 8 MEQ/L (5-15); BICARBONATE 26.1 MEQ/L (21.0-32.0); BLOOD UREA NITROGEN 15 MG/DL (7-18); CHLORIDE 109 MEQ/L (98-107); GLOMERULAR FILTRATION RATE 67 ML/MIN (>89); POTASSIUM 4.1 MEQ/L (3.5-5.1); SODIUM (NA) 143 MEQ/L (136-145)
[2016-09-05 00:45] LABS: CREATINE KINASE 69 U/L (26-192)
[2016-09-05 05:14] VITALS: BP 92/55; PULSE 64; RESP 20; TEMP 98; O2SAT 98
[2016-09-05 06:55] LABS: AUTOMATED NEUTROPHIL # 3.6 TH/MM3 (1.8-7.7); BASOPHIL # 0.1 TH/MM3 (0-0.2); EOSINOPHIL # 0.4 TH/MM3 (0-0.4); EOSINOPHIL % 6.6 % (0.0-4.0); HEMATOCRIT 40.9 % (35.0-46.0); HEMO FLAGS DIFF FINAL; LYMPH % 19.6 % (9.0-44.0); LYMPHOCYTE # 1.1 TH/MM3 (1.0-4.8); MEAN CELL VOLUME 94.7 FL (80.0-100.0); MEAN CORPUSCULAR HEMOGLOBIN 32.5 PG (27.0-34.0); MEAN CORPUSCULAR HGB CONC 34.3 % (32.0-36.0); MONO % 9.6 % (0.0-8.0); NEUT % 63.2 % (16.0-70.0); PLATELET COUNT 119 TH/MM3 (150-450); RED BLOOD COUNT 4.32 MIL/MM3 (4.00-5.30); RED CELL DISTRIBUTION WIDTH 12.9 % (11.6-17.2); WHITE BLOOD COUNT 5.7 TH/MM3 (4.0-11.0)
[2016-09-05 07:18] LABS: ANION GAP 9 MEQ/L (5-15); BICARBONATE 23.5 MEQ/L (21.0-32.0); BLOOD UREA NITROGEN 13 MG/DL (7-18); CHLORIDE 115 MEQ/L (98-107); GLOMERULAR FILTRATION RATE 66 ML/MIN (>89); POTASSIUM 4.4 MEQ/L (3.5-5.1); SODIUM (NA) 147 MEQ/L (136-145)
[2016-09-05 07:32] LABS: CREATINE KINASE 60 U/L (26-192)
[2016-09-05 08:17] VITALS: BP 117/71; PULSE 70; RESP 20; TEMP 98.4; O2SAT 100
[2016-09-05 08:20] VITALS: PULSE 62
[2016-09-05] MEDS: LITHIUM CARBONATE 300 MG CAP PO SCH ×2 (08:20→21:56)
[2016-09-05] MEDS: BENZTROPINE MESYLATE 1 MG TAB PO SCH ×2 (08:20→21:56)
[2016-09-05] MEDS: OXYBUTYNIN CHLORIDE 5 MG TAB PO SCH (08:21)
[2016-09-05] MEDS: POTASSIUM CHLORIDE 20 MEQ PWD PACKET PO SCH (08:21)
[2016-09-05] MEDS: SODIUM CHLORIDE 0.9% FLUSH 10 ML FLUSH IV FLUSH SCH ×2 (08:21→21:56)
--- NOTE | 2016-09-05 10:24 | HHI.PR ---
Subjective Remarks Follow-up for chest pain. The patient states that she had chest pain for about 4 hours yesterday. She states it is spontaneously resolved and has not recurred. She denies ever having any associated shortness of breath. She denies any nausea, vomiting, abdominal pain, diarrhea. She has been tolerating diet. She states that she is staying at a longterm house. No other questions or concerns today. Objective Vitals Vital Signs Date Time Temp Pulse Resp B/P Pulse Ox O2 Delivery O2 Flow Rate FiO2 09/05/16 08:20 62 09/05/16 08:17 98.4 70 20 117/71 100 09/05/16 05:14 98.0 64 20 92/55 98 09/04/16 23:41 98.8 70 18 94/58 97 09/04/16 22:45 73 09/04/16 20:44 98.5 80 14 109/72 98 09/04/16 19:26 93 18 137/63 99 Room Air 09/04/16 17:50 94 18 09/04/16 17:50 98 Nasal Cannula 1 09/04/16 17:25 98.9 88 18 139/87 97 I/O 09/04/16 09/04/16 09/04/16 09/05/16 09/05/16 09/05/16 07:00 15:00 23:00 07:00 15:00 23:00 Intake Total 640 ml Balance 640 ml Intake Oral 240 ml IV Total 400 ml # Voids 2 Result Diagram: 09/05/16 0640 09/05/16 0640 Imaging Last Impressions Chest X-Ray 09/04/16 7443 Signed Impressions: Service Date/Time: September 17:50 - CONCLUSION: Normal examination. Torito Clancy Jr., MD Objective Remarks GENERAL: Well-developed well-nourished. In no acute distress. SKIN: Warm and dry. No lesions noted. HEENT: Normocephalic. Pupils equal and round. Mucous membranes pink and moist. CARDIOVASCULAR: Regular rate and rhythm. No murmur appreciated. No chest wall TTP. RESPIRATORY: No accessory muscle use. Clear to auscultation. Breath sounds equal bilaterally. GASTROINTESTINAL: Abdomen soft, non-tender, nondistended. Bowel sounds x4. MUSCULOSKELETAL: No obvious deformities. No clubbing or cyanosis. No edema. NEUROLOGICAL: Awake and alert. No focal neurological deficits. Moves upper and lower extremities spontaneously. Normal speech. PSYCHIATRIC: Guarded mood and flat affect; insight and judgment fair. A/P Assessment and Plan 51-year-old female with a past medical history of schizoaffective disorder who presented for chest pain Atypical chest pain: ACS ruled out per protocol. Reviewed: Troponin negative 3. EKG with NSR. Chest x-ray clear. Hyponatremia/hypernatremia: Patient initially presented with hyponatremia which rapidly improved with IVF overcorrection. Reviewed: Sodium 126->147. Serum osmolality 285, and urine osmolality 68, urine sodium 20. -Neuro checks -Check lithium level and thyroid function -Repeat serum osmolality -Check serial BMPs -Continue IVF with half-normal saline Schizoaffective disorder: Discharged from inpatient psychiatry yesterday. -Continue medications as per psychiatry. -Follow up lithium level DVT prophylaxis: SCDs Discussed with Dr. Penny, watch for osmotic demyelination syndrome Attending Statement The exam, history, and the medical decision-making described in the above note were completed with the assistance of the mid-level provider. I reviewed and agree with the findings presented. I attest that I had a [id number] encounter with the patient on the same day, and personally performed and documented my assessment and findings in the medical record.patient seen and examined this morning. She is requesting to go home. Sodium has increased from 126-147, bringing the possibility of causing central pontine myelinolysis, which would not become evident for 72 hours. we will correct sodium back to 136. there is a possibility that labs on admission were lab error, howeverthere is much less risk of harm in decreasing her sodium from 147to 136, not allowing it to go from 126 to 147. consult psychiatry due to patient requesting to leave, risk of central pontine myelinolysis. Appreciate assistance. If sodium stable by this evening, will stop fluids and monitor. Reymundo Sifuentes Sep 05, 2016 10:24 Valeriy Penny MD Sep 06, 2016 16:46
[2016-09-05] MEDS ORDERED: SODIUM CHLOR 0.45% 1000 ML INJ 1,000 ML IV ONE (10:45)
[2016-09-05 11:47] VITALS: BP 112/59; PULSE 80; RESP 18; TEMP 96.9; O2SAT 95
[2016-09-05] MEDS: SODIUM CHLORIDE 23.4% INJ 38.5 MEQ in WATER STERILE FOR INJ 1,000 ML IV SCH ×2 (12:13→21:06)
--- NOTE | 2016-09-05 12:24 | EKG ---
Date Performed: 09/04/2016 Time Performed: 17:38:59 PTAGE: 51 years EKG: Sinus rhythm NORMAL ECG PREVIOUS TRACING 06/05/2004 20.50 Compared to prior tracing no significant change DOCTOR: Rai Erickson Interpretating Date/Time 09/05/2016 12:22:06
[2016-09-05 13:52] LABS: BICARBONATE 25.3 MEQ/L (21.0-32.0)
--- NOTE | 2016-09-05 14:17 | PD.CONS ---
Provisional Diagnosis Admission Date Sep 04, 2016 at 19:13 [place] I. 1. Schizoaffective disorder [place] II. Deferred History of Present Illness Service Psychiatry Consult Requested By Dr. Penny Reason for Consult Capacity Primary Care Physician Sachin Blakely [facility] Ms. Roy is a 51-year-old female with a history of schizoaffective disorder discharged yesterday from the inpatient psychiatric unit to assisted living setting. The patient was brought back to the emergency department yesterday with complaints of chest pain. She was found to be hyponatremic to 126 and was admitted to the clinical decision unit. Hyponatremia was corrected from 126 --> 147mEq/L, and this significant increase in sodium level places the patient at risk for central pontine myelinolysis. Dr. Penny has requested a stat psychiatric consultation from me for capacity to leave as the patient is demanding to be discharged from the clinical decision unit at this time. Patient seen and examined. An officer is at the bedside. Chart reviewed. Case discussed with Dr. Penny and with nurse. On my examination today, patient explains that she has been having chest pain "off and on for years." It is unclear what made chest pain new or different yesterday. She articulates a consistent choice to leave the hospital. She does not understand that her sodium level was low on admission ("my salt, it was just right) and further does NOT understand the risk of failing to address potential risk for CPM, nor can I make her understand this risk in my attempts at education. When I explain that she could suffer significant morbidity and mortality, she is noncommittal. She does deny SI or HI. Denies AVH. Mood seems stable. Remainder of the psychiatric ROS is negative. I endeavor to update patient's past psychiatric, family, chemical dependency and social history, but the patient declines to provide these, saying that she gave me this information when I saw her for an H&P on 08/10 and she does not wish to go over it again now. Review of Systems ROS Limitations: Poor Historian Except as stated in HPI: all other systems reviewed are Neg Past Family Social History Coded Allergies: Penicillin (Verified Allergy, Severe, 08/04/16) Past Medical History See electronic medical record Active Scripts Potassium Chloride Powder 20 Meq [id number] Meq PO DAILY 15 Days Ref 1 Prov:Jairon Milner MD 09/04/16 Oxybutynin (Ditropan)5 Mg Tab5 Mg PO Q12HR 15 Days Ref 1 Prov:Jairon Milner MD 09/04/16 Olanzapine 15 Mg Tab15 Mg PO HS 15 Days Ref 1 Prov:Jairon Milner MD 09/04/16 Loratadine (Gnp Loratadine)10 Mg Tab10 Mg PO DAILY 15 Days Ref 1 Prov:Jairon Milner MD 09/04/16 [place] Carbonate 300 Mg [id number] Mg PO BID 15 Days Ref 1 Prov:Jairon Milner MD 09/04/16 Haloperidol 10 Mg Tab10 Mg PO HS 15 Days Ref 1 Prov:Jairon Milner MD 09/04/16 [Benztropine Mesylate] (Cogentin)1 MG TAB No Conflict Check1 Mg PO BID 15 Days Ref 1 Prov:Jairon Milner MD 09/04/16 Albuterol 18 GM Inh (Ventolin Hfa 18 GM Inh)90 Mcg/Act Aer2 Puff INH Q4H PRN ( SHORTNESS OF BREATH) 15 Days Ref 1 Prov:Jairon Milner MD 09/04/16 Discontinued Reported Medications Haloperidol Decanoate Inj (Haldol Decanoate Inj)100 Mg/Ml [id number] Mg IM Q28D #1 VIAL Ref 0 08/10/16 Haloperidol 10 Mg Tab10 Mg PO HS Ref 0 08/04/16 Benztropine 1 Mg Tab1 Mg PO BID #60 TAB Ref 0 08/04/16 [place] Carbonate 300 Mg [id number] Mg PO BID Ref 0 08/04/16 Potassium Chloride ER 20 Meq Tab20 Meq PO DAILY #30 TAB Ref 0 08/04/16 Albuterol 8.5 GM Inh (Proair Hfa 8.5 GM Inh)90 Mcg/Act Aer2 Puff INH Q4-6H PRN ( SHORTNESS OF BREATH) #1 INHALER Ref 0 108 mcg/actuation 08/04/16 Lorazepam 0.5 Mg Tab0.5 Mg PO BID PRN (ANXIETY) Ref 0 08/04/16 Olanzapine 15 Mg Tab15 Mg PO HS #30 TAB Ref 0 08/04/16 Loratadine (Claritin)10 Mg Cap10 Mg PO DAILY Ref 0 08/04/16 Oxybutynin (Ditropan)5 Mg Tab5 Mg PO Q12HR #60 TAB Ref 0 08/04/16 Current Medications Medications (Trade) Dose Ordered Sig/Justin Route Start Time Stop Time Status Last Admin (NS Flush) 2 ml UNSCH PRN IV FLUSH 09/04/16 19:15 (NS Flush) 2 ml BID IV FLUSH 09/04/16 21:00 09/04/16 23:10 (Narcan Inj) 0.4 mg UNSCH PRN IV 09/04/16 19:15 (Haldol) 10 mg HS PO 09/04/16 21:00 09/04/16 23:09 ([place] Carbonate) 300 mg BID PO 09/04/16 21:00 09/05/16 08:20 (ZyPREXA) 15 mg HS PO 09/04/16 21:00 09/04/16 23:09 (Ditropan) 5 mg Q12HR PO 09/04/16 21:00 Hold 09/05/16 08:21 (KCl Powder) 20 meq DAILY PO 09/05/16 09:00 09/05/16 08:21 Benztropine Mesylate 1 mg 1 mg BID PO 09/04/16 21:00 09/05/16 08:20 (Sodium Chloride 23.4% Inj/Sterile Water For Inj) 1,009.625 ml @ 100 mls/hr Q10H6M IV 09/05/16 11:00 09/05/16 12:13 Family History See above Social History See above Patient's Strengths (min. 2) In a monitored setting. Verbally fluent. Physical Exam Physical examination completed by primary team. On my examination today, the patient appears to be in no acute physical distress. I can appreciate no motor abnormalities. Laboratories and vitals signs reviewed: Vital Signs Vital Signs Date Time Temp Pulse Resp B/P Pulse Ox O2 Delivery O2 Flow Rate FiO2 09/05/16 11:47 96.9 80 18 112/59 95 09/04/16 19:26 Room Air 09/04/16 17:50 1 I/O 09/04/16 09/04/16 09/05/16 08:00 16:00 00:00 Intake Total 640 ml Balance 640 ml Lab Results Item Value Date Time White Blood Count 5.7 TH/MM3 09/05/16 0640 Hemoglobin 14.1 GM/DL 09/05/16 0640 Platelet Count 119 TH/MM3 L 09/05/16 0640 Sodium Level 126 MEQ/L L 09/04/16 1750 Sodium Level 147 MEQ/L H 09/05/16 0640 Potassium Level 4.0 MEQ/L 09/05/16 1240 Chloride Level 112 MEQ/L H 09/05/16 1240 Carbon Dioxide Level 25.3 MEQ/L 09/05/16 1240 Blood Urea Nitrogen 14 MG/DL 09/05/16 1240 Creatinine 0.95 MG/DL 09/05/16 1240 Serum Osmolality 308 MOSM/KG H # 09/05/16 1240 Calcium Level 9.3 MG/DL 09/05/16 1240 Total Creatine Kinase 60 U/L 09/05/16 0640 Troponin I LESS THAN 0.02 NG/ML L 09/05/16 0640 Mental Status Examination Patient is casually dressed. She is fairly well groomed. She is awake and alert and oriented to person, place and date. She is able to spell the word world forward and backward without any errors. No abnormal motor movements noted. Speech is within normal limits for rate, tone and volume. Memory seems intact on clinical exam. Mood is fair to slightly irritable. Affect is blunted , tending towards flat. Thought process linear. No loosening of associations. No evident delusions. Denies audiovisual hallucinations. Denies suicidal or homicidal ideation. Insight and judgment are poor. Assessment & Plan Problem List: (1) Schizoaffective disorder ICD Code: F25.9 Assessment & Plan This is a 51-year-old female with psychiatric history as detailed above who is presently admitted to the clinical decision unit. Psychiatry is consulted urgently because the patient is insisting on leaving the hospital even though she has had rapid correction of her presenting hyponatremia placing her at risk for central pontine myelinolysis. On my examination today, the patient articulates a consistent choice to leave the hospital at this time but can provide no satisfactory understanding of the risks and benefits of leaving the hospital. Given the significant morbidity and mortality that is associated with failure to adequately manage her current medical issues, I think a relatively high bar must be utilized for the capacity question. I caterer helper that she presently does not have capacity to make disposition decisions. Further, I suspect that her poor judgment is a consequence of the executive dysfunction that is seen in patients with chronic psychotic illnesses. Given that she suffers from a mental illness and that this mental illness is resulting in significant risk for neglect of her self-care, I caterer helper that the patient presently meets Salazar act criteria, and I have initiated Salazar act and placed on the chart. I have discussed case with Dr. Penny and RN. Thank you very much for this consultation. Please call or page with questions. Discharge Planning Salazar Gordon initiated. Problem Qualifiers (1) Schizoaffective disorder: Qualified Code: F25.8 - Other schizoaffective disorders Jairon Milner MD Sep 05, 2016 14:17
[2016-09-05 18:04] LABS: BICARBONATE 25.6 MEQ/L (21.0-32.0)
[2016-09-05 18:31] LABS: POTASSIUM 3.5 MEQ/L (3.5-5.1)
[2016-09-05 19:07] VITALS: BP 144/95; PULSE 76; RESP 20; TEMP 98.2; O2SAT 99
[2016-09-05 19:20] LABS: BICARBONATE 22.1 MEQ/L (21.0-32.0); POTASSIUM 3.7 MEQ/L (3.5-5.1)
[2016-09-05] MEDS: HALOPERIDOL 10 MG TAB PO SCH (21:56)
[2016-09-05 23:20] LABS: BICARBONATE 25.1 MEQ/L (21.0-32.0)
[2016-09-05 23:30] LABS: FREE T4 1.11 NG/DL (0.76-1.46); INDIRECT BILIRUBIN 0.6 MG/DL (0.0-0.8); TOTAL BILIRUBIN ADULT 0.9 MG/DL (0.2-1.0)
[2016-09-06 00:07] VITALS: BP 108/64; PULSE 70; RESP 20; TEMP 97.9; O2SAT 100
[2016-09-06 03:30] LABS: BICARBONATE 26.3 MEQ/L (21.0-32.0); POTASSIUM 4.2 MEQ/L (3.5-5.1)
[2016-09-06 04:35] VITALS: BP 88/59; PULSE 60; RESP 20; TEMP 98.1; O2SAT 96
[2016-09-06 04:50] VITALS: BP 90/62
[2016-09-06] MEDS: SODIUM CHLORIDE 23.4% INJ 38.5 MEQ in WATER STERILE FOR INJ 1,000 ML IV SCH ×2 (06:07→11:12)
[2016-09-06 07:49] LABS: BICARBONATE 25.6 MEQ/L (21.0-32.0); POTASSIUM 4.2 MEQ/L (3.5-5.1)
[2016-09-06 08:00] VITALS: BP 109/61; PULSE 69; RESP 16; TEMP 97.8; O2SAT 100
[2016-09-06] MEDS: LITHIUM CARBONATE 300 MG CAP PO SCH (08:44)
[2016-09-06] MEDS: SODIUM CHLORIDE 0.9% FLUSH 10 ML FLUSH IV FLUSH SCH (08:44)
[2016-09-06] MEDS: POTASSIUM CHLORIDE 20 MEQ PWD PACKET PO SCH (08:44)
[2016-09-06] MEDS: BENZTROPINE MESYLATE 1 MG TAB PO SCH (08:44)
--- NOTE | 2016-09-06 11:05 | PD.CONS ---
HPI Service Nephrology Consult Requested By Primary Care Physician Sachin Blakely History of Present Illness This patient was admitted on 09/04/16 with chest pain. She has history of psychiatric illness, was on [place]. On presentation, her serum Na was 126. About 36-38 hours later, her serum Na is 143. She did have rapid correction of serum Na after arrival when it increased by 17 in about 6 hours. Since then it has been stable. She apparently wants to be discharged. Review of Systems Constitutional: DENIES: Fever Cardiovascular: DENIES: Chest pain, Palpitations Gastrointestinal: DENIES: Abdominal pain, Black stools, Bloody stools Musculoskeletal: DENIES: Joint pain, Muscle aches Integumentary: DENIES: Abnormal pigmentation, Pruritus, Rash Neurologic: DENIES: Localized weakness Past Family Social History Allergies: Coded Allergies: Penicillin (Verified Allergy, Severe, 09/06/16) Past Medical History schizoaffective disorder. Reported Medications Potassium Chloride Powder (Potassium Chloride) 20 Meq Powderpack 20 Meq PO DAILY 15 Days Ditropan (Oxybutynin Chloride) 5 Mg Tab 5 Mg PO Q12HR 15 Days Olanzapine 15 Mg Tab 15 Mg PO HS 15 Days Gnp Loratadine (Loratadine) 10 Mg Tab 10 Mg PO DAILY 15 Days [place] Carbonate 300 Mg Cap 300 Mg PO BID 15 Days Haloperidol 10 Mg Tab 10 Mg PO HS 15 Days [Benztropine] 1 MG Tab 1 Mg PO BID 15 Days Ventolin Hfa 18 GM Inh (Albuterol Sulfate) 90 Mcg/Act Aer 2 Puff INH Q4H PRN 15 Days Active Ordered Medications Current Medications Medications (Trade) Dose Ordered Sig/Justin Route Start Time Stop Time Status Last Admin (NS Flush) 2 ml UNSCH PRN IV FLUSH 09/04/16 19:15 (NS Flush) 2 ml BID IV FLUSH 09/04/16 21:00 09/05/16 21:56 (Narcan Inj) 0.4 mg UNSCH PRN IV 09/04/16 19:15 (Haldol) 10 mg HS PO 09/04/16 21:00 09/05/16 21:56 ([place] Carbonate) 300 mg BID PO 09/04/16 21:00 09/06/16 08:44 (ZyPREXA) 15 mg HS PO 09/04/16 21:00 09/05/16 21:56 (Ditropan) 5 mg Q12HR PO 09/04/16 21:00 Hold 09/05/16 08:21 (KCl Powder) 20 meq DAILY PO 09/05/16 09:00 09/06/16 08:44 Benztropine Mesylate 1 mg 1 mg BID PO 09/04/16 21:00 09/06/16 08:44 (Sodium Chloride 23.4% Inj/Sterile Water For Inj) 1,009.625 ml @ 100 mls/hr Q10H6M IV 09/05/16 11:00 09/06/16 06:07 Family History reviewed, non contributory Social History quit ETOH about 1 year ago. Smokes 1 ppd Physical Exam Vital Signs Vital Signs Date Time Temp Pulse Resp B/P Pulse Ox O2 Delivery O2 Flow Rate FiO2 09/06/16 08:00 97.8 69 16 109/61 100 09/06/16 04:50 90/62 Automatic Cuff 09/06/16 04:35 98.1 60 20 88/59 96 09/06/16 00:07 97.9 70 20 108/64 100 09/05/16 19:07 98.2 76 20 144/95 99 09/05/16 11:47 96.9 80 18 112/59 95 Physical Exam GENERAL: awake, alert. No distress. SKIN: Warm and dry. HEAD: Normocephalic. EYES: No scleral icterus. No injection or drainage. NECK: Supple, trachea midline. No JVD or lymphadenopathy. CARDIOVASCULAR: Regular rate and rhythm without murmurs, gallops, or rubs. RESPIRATORY: Breath sounds equal bilaterally. No accessory muscle use. GASTROINTESTINAL: Abdomen soft, non-tender, nondistended. MUSCULOSKELETAL: No cyanosis, or edema. BACK: Nontender without obvious deformity. No CVA tenderness. Laboratory Laboratory Tests Test 09/05/16 09/05/16 09/05/16 09/05/16 12:40 16:55 18:16 22:38 Sodium Level 145 142 136 140 Potassium Level 4.0 3.5 3.7 4.0 Chloride Level 112 109 106 107 Carbon Dioxide Level 25.3 25.6 22.1 25.1 Anion Gap 8 7 8 8 Blood Urea Nitrogen 14 13 12 14 Creatinine 0.95 1.03 0.99 0.82 Estimat Glomerular Filtration 63 57 60 74 Rate Random Glucose 83 88 97 93 Serum Osmolality 308 Calcium Level 9.3 8.8 8.2 8.6 Total Triiodothyronine 112 [place] Level 0.6 Total Bilirubin 0.9 Direct Bilirubin 0.3 Indirect Bilirubin 0.6 Aspartate Amino Transf 35 (AST/SGOT) Alanine Aminotransferase 43 (ALT/SGPT) Alkaline Phosphatase 85 Total Protein 6.2 Albumin 3.2 Free Thyroxine 1.11 Thyroid Stimulating Hormone 2.400 3rd Gen Test 09/06/16 09/06/16 03:06 06:37 Sodium Level 144 143 Potassium Level 4.2 4.2 Chloride Level 113 111 Carbon Dioxide Level 26.3 25.6 Anion Gap 5 6 Blood Urea Nitrogen 13 12 Creatinine 0.85 0.98 Estimat Glomerular Filtration 71 60 Rate Random Glucose 93 95 Calcium Level 9.3 9.6 Result Diagram: 09/05/16 0640 09/06/16 0637 Assessment and Plan Problem List: (1) Hyponatremia Plan: urine osmolality was low at 68, 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 She is on [place] which can cause nephrogenic diabetes, but hypernatremia is seen in this condition. I do agree that patient's serum Na correction was rapid. Since 09/05/16, her serum Na is stable however. Continue with 1/4NS, reduce the rate to 30 ml/hour. If the serum Na increases to more than 145, consider use of desmopressin: as mentioned above, she is on [place] and will have a tendency for hypernatremia. If serum Na is stable, she can be discharged from renal standpoint. Herberth Singh MD Sep 06, 2016 11:05
--- NOTE | 2016-09-06 11:29 | HHI.PR ---
Subjective Remarks Follow-up for chest pain and sodium overcorrection. Sitter at bedside. No acute events. The patient feels well today. She denies any further chest pain. She denies any headache, vision changes, numbness, tingling, weakness. She states she's been ambulating. She states she's been eating and drinking well. She would like to go home today if possible. Objective Vitals Vital Signs Date Time Temp Pulse Resp B/P Pulse Ox O2 Delivery O2 Flow Rate FiO2 09/06/16 08:00 97.8 69 16 109/61 100 09/06/16 04:50 90/62 Automatic Cuff 09/06/16 04:35 98.1 60 20 88/59 96 09/06/16 00:07 97.9 70 20 108/64 100 09/05/16 19:07 98.2 76 20 144/95 99 09/05/16 11:47 96.9 80 18 112/59 95 I/O 09/05/16 09/05/16 09/05/16 09/06/16 09/06/16 09/06/16 07:00 15:00 23:00 07:00 15:00 23:00 Intake Total 430 ml 540 ml Balance 430 ml 540 ml Intake Oral 30 ml 240 ml IV Total 400 ml 300 ml # Voids 1 Result Diagram: 09/05/16 0640 09/06/16 0637 Imaging Last Impressions Chest X-Ray 09/04/16 1733 Signed Impressions: Service Date/Time: September 17:50 - CONCLUSION: Normal examination. Torito Clancy Jr., MD Objective Remarks GENERAL: Well-developed well-nourished. In no acute distress. SKIN: Warm and dry. No lesions noted. HEENT: Normocephalic. Pupils equal and round. Mucous membranes pink and moist. CARDIOVASCULAR: Regular rate and rhythm. No murmur appreciated. No chest wall TTP. RESPIRATORY: No accessory muscle use. Clear to auscultation. Breath sounds equal bilaterally. GASTROINTESTINAL: Abdomen soft, non-tender, nondistended. Bowel sounds x4. MUSCULOSKELETAL: No obvious deformities. No clubbing or cyanosis. No edema. NEUROLOGICAL: Awake and alert. No focal neurological deficits. Moves upper and lower extremities spontaneously. Normal speech. PSYCHIATRIC: Guarded mood and flat affect; insight and judgment fair. A/P Assessment and Plan 51-year-old female with a past medical history of schizoaffective disorder who presented for chest pain Atypical chest pain: ACS ruled out per protocol. Reviewed: Troponin negative 3. EKG with NSR. Chest x-ray clear. Hyponatremia/hypernatremia: Patient initially presented with hyponatremia which rapidly improved with IVF overcorrection, at risk for ODS, although remains asymptomatic. Reviewed: Sodium 126->147. Serum osmolality 285, 308. Urine osmolality 68, urine sodium 20. [place] level within normal limits. Thyroid function within normal limits. -Neuro checks -Checking serial BMPs, sodium has remained stable overnight -Continue IVF with 1/4-normal saline -Nephrology consulted, cleared for discharge from their standpoint of sodium is within normal limits, if not may need desmopressin -Follow up repeat labs Schizoaffective disorder: Discharged from inpatient psychiatry prior to admission. -Continue medications as per psychiatry. -[place] level within normal limits -Psychiatry consulted as patient wanted to leave A and the patient was placed under [place] act -Follow up psychiatry recommendations when medically cleared DVT prophylaxis: SCDs Discussed with Dr. Penny Discharge Planning Repeat BMP pending. If sodium remains stable today without any associated neurological symptoms and patient is cleared by psychiatry could possibly be discharged. 1700 sodium improved to 136 appropriately. Psychiatry has lifted Lincoln act. Discharge today. Reymundo Sifuentes Sep 06, 2016 11:29
[2016-09-06 11:52] LABS: BICARBONATE 27.4 MEQ/L (21.0-32.0); POTASSIUM 3.9 MEQ/L (3.5-5.1)
[2016-09-06 12:13] VITALS: BP 91/55; PULSE 71; RESP 16; TEMP 97.6; O2SAT 98
[2016-09-06 17:03] LABS: BICARBONATE 29.1 MEQ/L (21.0-32.0); POTASSIUM 4.1 MEQ/L (3.5-5.1)
--- NOTE | 2016-09-06 17:03 | HHI.PYPN ---
Subjective Remarks Patient seen and examined. Chart reviewed. Case discussed with [place] in the CDU. Sitter at the bedside. No behavioral problems overnight. On my examination today, the patient is in good spirits. She is agreeable to following up medically and psychiatrically on an outpatient basis. No depressive or hypomanic/manic symptoms. Sleeping and eating well. Denies suicidal or homicidal ideation, intent or plan. Denies audiovisual hallucinations. No evident delusional beliefs. Denies side effects from psychotropic medications. No physical complaints. Review of Systems ROS Limitations: Poor Historian Except as stated in HPI: all other systems reviewed are Neg Objective Alert: Yes [place]: Person, Place, Date Mood: Calm Affect: Euthymic Memory Intact: Comment (not formally assessed) Hallucinations: Other (denies AVH) Delusions: No Delusion Type: Other (no delusional material) Suicidal: Ideation (denies suicidal ideation) Homicidal: Ideation (denies homicidal ideation) Insight/Judgment Chronically poor Remarks Thought process linear. Speech within normal limits for rate, tone and volume. Grooming and hygiene fair. Labs Test 09/05/16 09/05/16 09/06/16 09/06/16 18:16 22:38 03:06 06:37 Sodium Level 136 MEQ/L 140 MEQ/L 144 MEQ/L 143 MEQ/L Potassium Level 3.7 MEQ/L 4.0 MEQ/L 4.2 MEQ/L 4.2 MEQ/L Chloride Level 106 MEQ/L 107 MEQ/L 113 MEQ/L 111 MEQ/L Carbon Dioxide Level 22.1 MEQ/L 25.1 MEQ/L 26.3 MEQ/L 25.6 MEQ/L Anion Gap 8 MEQ/L 8 MEQ/L 5 MEQ/L 6 MEQ/L Blood Urea Nitrogen 12 MG/DL 14 MG/DL 13 MG/DL 12 MG/DL Creatinine 0.99 MG/DL 0.82 MG/DL 0.85 MG/DL 0.98 MG/DL Estimat Glomerular Filtration 60 ML/MIN 74 ML/MIN 71 ML/MIN 60 ML/MIN Rate Random Glucose 97 MG/DL 93 MG/DL 93 MG/DL 95 MG/DL Calcium Level 8.2 MG/DL 8.6 MG/DL 9.3 MG/DL 9.6 MG/DL Total Bilirubin 0.9 MG/DL Direct Bilirubin 0.3 MG/DL Indirect Bilirubin 0.6 MG/DL Aspartate Amino Transf 35 U/L (AST/SGOT) Alanine Aminotransferase 43 U/L (ALT/SGPT) Alkaline Phosphatase 85 U/L Total Protein 6.2 GM/DL Albumin 3.2 GM/DL Free Thyroxine 1.11 NG/DL Thyroid Stimulating Hormone 2.400 uIU/ML 3rd Gen Test 09/06/16 10:55 Sodium Level 142 MEQ/L Potassium Level 3.9 MEQ/L Chloride Level 109 MEQ/L Carbon Dioxide Level 27.4 MEQ/L Anion Gap 6 MEQ/L Blood Urea Nitrogen 13 MG/DL Creatinine 1.00 MG/DL Estimat Glomerular Filtration 59 ML/MIN Rate Random Glucose 87 MG/DL Calcium Level 9.2 MG/DL Vitals/IOs Vital Signs Date Time Temp Pulse Resp B/P Pulse Ox O2 Delivery O2 Flow Rate FiO2 09/06/16 12:13 97.6 71 16 91/55 98 09/04/16 19:26 Room Air 09/04/16 17:50 1 Intake and Output 09/05/16 09/05/16 09/05/16 07:59 15:59 23:59 Intake Total 430 ml Balance 430 ml Assessment & Plan Problem List: (1) Schizoaffective disorder ICD Code: F25.9 Assessment & Plan Weighing the relevant factors, patient no longer meets Lincoln act criteria. She is denying suicidal or homicidal ideation. She is agreeable to following up as recommended. I have lifted the Lincoln act. Patient should follow-up psychiatrically on an outpatient basis. She should continue her psychotropic medications. Patient to return to the psychiatric emergency room for any concerning psychiatric symptoms. Case discussed with [place] in the CDU, Edilia Sifuentes. Justification for Cont. Inpt. Psychiatrically clear for discharge. Problem Qualifiers (1) Schizoaffective disorder: Qualified Code: F25.8 - Other schizoaffective disorders Jairon Milner MD Sep 06, 2016 17:03
[2016-09-06 17:04] VITALS: BP 123/76; PULSE 75; RESP 18; TEMP 96.6; O2SAT 95
== END 2016-09-06 17:45 | disposition home or self-care (01) ==
LOC: NEPE 16:44 → NEDA 19:13 → NEPGCP 20:54
PROVIDERS: ADMIT Hospitalist; ATTEND Hospitalist
DX: E87.1 Hypo-osmolality and hyponatremia (principal); F25.8 Other schizoaffective disorders; F17.210 Nicotine dependence, cigarettes, uncomplicated; Z79.899 Other long term (current) drug therapy
CPT/HCPCS: 80048; 80076; 80178; 82550; 83930; 84439; 84443; 84480; 84484; 85025; 99285; G0378; 71010; 80307; 83735; 83935; 84300; 85610; 85730; 93005; J7030

== ENCOUNTER 2016-09-06 23:20 | Emergency (ER) | payer MEDICAID, OTHER ==
[~2016-09-06 23:20] MED LIST changes: -ALBUAER3 INH; -BENZ1TAB PO; -CLAR10CA3 PO; -HALO100P IM; -LORA-373 PO; -POTA-163 PO
[2016-09-06 23:43] VITALS: BP 115/71; PULSE 76; RESP 16; TEMP 98.5; O2SAT 97
[2016-09-07 00:04] LABS: AUTOMATED NEUTROPHIL # 7.2 TH/MM3 (1.8-7.7); BASOPHIL # 0.1 TH/MM3 (0-0.2); BASOPHIL % 0.9 % (0.0-2.0); EOSINOPHIL # 0.5 TH/MM3 (0-0.4); EOSINOPHIL % 4.8 % (0.0-4.0); HEMATOCRIT 37.2 % (35.0-46.0); HEMO FLAGS DIFF FINAL; LYMPH % 16.8 % (9.0-44.0); LYMPHOCYTE # 1.7 TH/MM3 (1.0-4.8); MEAN CELL VOLUME 93.6 FL (80.0-100.0); MEAN CORPUSCULAR HEMOGLOBIN 32.7 PG (27.0-34.0); MONO % 7.1 % (0.0-8.0); NEUT % 70.4 % (16.0-70.0); PLATELET COUNT 138 TH/MM3 (150-450); RED BLOOD COUNT 3.98 MIL/MM3 (4.00-5.30); RED CELL DISTRIBUTION WIDTH 12.5 % (11.6-17.2); WHITE BLOOD COUNT 10.2 TH/MM3 (4.0-11.0)
--- NOTE | 2016-09-07 00:06 | PD ---
HPI Chief Complaint: Psychiatric Symptoms Time Seen by Provider: 23:44 Travel History International Travel<30 days: No Contact w/Intl Traveler<30days: No Traveled to known affect area: No History of Present Illness HPI This is a 51-year-old female who has a history of schizophrenia who is on lithium also has a history of substance abuse who presents to the emergency department having been brought in under a Lincoln act for depression and for saying she wants to kill herself. She said she started to have thoughts of killing herself about an hour ago. Her symptoms have been constant. When I asked her where she lives she said she had been living at [facility], a [facility]. She was discharged from the hospital today after a hospitalization for low sodium. When she was discharged she had no where to ago so she [place] the mall. PFSH Past Medical History Asthma: No Blood Disorders: No Bipolar Disorder: Yes Anxiety: Yes Depression: Yes Cancer: No Cardiovascular Problems: No COPD: No Diabetes: No Diminished Hearing: No Endocrine: No Genitourinary: No Hepatitis: Yes (HEP C) Immune Disorder: No Musculoskeletal: No Neurologic: Yes (SEIZURES) Psychiatric: Yes Reproductive: No Respiratory: No Seizures: Yes Tetanus Vaccination: < 5 Years Influenza Vaccination: Yes ?: Not Past Surgical History Section: Yes Gynecologic Surgery: Yes (C/SECTIONS X2) Hysterectomy: Yes Other Surgery: Yes (C SECTION) Social History Alcohol Use: No (states sober for one year.) Tobacco Use: Yes (1 PACK DAILY) Substance Use: Yes (SOBER FOR 1 YEAR) Allergies-Medications (Allergen,Severity, Reaction): Coded Allergies: Penicillin (Verified Allergy, Severe, 09/06/16) Reported Meds & Prescriptions Reported Meds & Active Scripts Active Potassium Chloride Powder (Potassium Chloride) 20 Meq Powderpack 20 Meq PO DAILY 15 Days Ditropan (Oxybutynin Chloride) 5 Mg Tab 5 Mg PO Q12HR 15 Days Olanzapine 15 Mg Tab 15 Mg PO HS 15 Days Gnp Loratadine (Loratadine) 10 Mg Tab 10 Mg PO DAILY 15 Days [place] Carbonate 300 Mg Cap 300 Mg PO BID 15 Days Haloperidol 10 Mg Tab 10 Mg PO HS 15 Days [Benztropine] 1 MG Tab 1 Mg PO BID 15 Days Ventolin Hfa 18 GM Inh (Albuterol Sulfate) 90 Mcg/Act Aer 2 Puff INH Q4H PRN 15 Days Review of Systems ROS Limitations: Poor Historian Physical Exam Narrative GENERAL:Well appearing, no acute distress SKIN: Focused skin assessment warm and dry. HEAD: Atraumatic. Normocephalic. EYES: Pupils equal and round. No injection or drainage. ENT: Moist mucous membranes NECK: Trachea midline. CARDIOVASCULAR: Regular rate and rhythm. No murmur appreciated. RESPIRATORY: Clear to auscultation. Breath sounds equal bilaterally. GASTROINTESTINAL: Abdomen soft, non-tender, nondistended. MUSCULOSKELETAL: No obvious deformities. NEUROLOGICAL: Awake and alert. No obvious cranial nerve deficits. Moving all extremities.. PSYCHIATRIC: Appropriate mood and affect; statements are incongruent with the patient's affect. She appears to have some cognitive delay. Data Data Last Documented VS Vital Signs Date Time Temp Pulse Resp B/P Pulse Ox O2 Delivery O2 Flow Rate FiO2 09/06/16 23:43 98.5 76 16 115/71 97 Orders Complete Blood Count With Diff (09/06/16 23:45) Comprehensive Metabolic Panel (09/06/16 23:45) [place] (Li) (09/06/16 23:45) Drug Screen, Random Urine (09/06/16 23:45) Alcohol (Ethanol) (09/06/16 23:45) MDM Medical Decision Making Medical Screen Exam Complete: Yes Emergency Medical Condition: Yes Interpretation(s) Afebrile, no tachycardia, normotensive Differential Diagnosis Schizophrenia, hyponatremia, electrolyte abnormality, depression, adjustment reaction Narrative Course This is a patient with a history of mental illness who presents to the emergency department reporting suicidal ideation. Her affect is incongruent with her statements. She was just discharged earlier this afternoon from the hospital and I suspect she had nowhere to go as she says she went over to the mall. She was hoping to go back to [facility] where she had been residing prior to her hospitalization. I suspect that she has some secondary gain in regards to her presentation here today. It would likely be helpful to involve case management to try to find placement for this patient as I am not convinced she is safe to live independently, and if she were discharged she would likely return to the emergency department soon after as she has no where to go. Fiorella Mandujano MD Sep 07, 2016 00:06
[2016-09-07 00:18] LABS: ALT (GPT) 48 U/L (10-53); ANION GAP 7 MEQ/L (5-15); AST (GOT) 31 U/L (15-37); BICARBONATE 26.4 MEQ/L (21.0-32.0); BLOOD UREA NITROGEN 16 MG/DL (7-18); CHLORIDE 102 MEQ/L (98-107); GLOMERULAR FILTRATION RATE 56 ML/MIN (>89); POTASSIUM 3.8 MEQ/L (3.5-5.1); SODIUM (NA) 135 MEQ/L (136-145)
[2016-09-07 00:20] LABS: ALKALINE PHOSPHATASE 86 U/L (45-117); TOTAL BILIRUBIN ADULT 0.4 MG/DL (0.2-1.0)
[2016-09-07 10:00] VITALS: BP 111/68; PULSE 69; RESP 18
[2016-09-07 14:00] VITALS: BP 112/60; PULSE 86; RESP 17
--- NOTE | 2016-09-07 16:26 | PD ---
History of Present Illness Chief Complaint: Psychiatric Symptoms Time Seen by Provider: 16:15 Travel History International Travel<30 Days: No Contact w/Intl Traveler<30days: No Known affected area: No Legal Status Legal Status: Lincoln Act Lincoln Act Signed By: Frederick Peterson History of Present Illness: This is a 51-year-old female with a long history of schizophrenia or schizoaffective disorder. She is well known to this physician from a very recent hospitalization here at [facility]. She is in a new [facility] at this time, the patient is not suicidal or homicidal or demonstrating any obvious psychotic symptoms. She is wanting to return to the [facility] and is verbally stephenie for safety. Her cognition is baseline and she has no suicidal or homicidal ideation , plan or intention. She is willing to be compliant with her current medication regimen and she is willing to seek follow up psychiatric treatment on an outpatient basis. She is calm, pleasant and cooperative. PFSH Past Medical History Asthma: No Blood Disorders: No Bipolar Disorder: Yes Anxiety: Yes Depression: Yes Cancer: No Cardiovascular Problems: No COPD: No Diabetes: No Diminished Hearing: No Endocrine: No Genitourinary: No Hepatitis: Yes (HEP C) Immune Disorder: No Musculoskeletal: No Neurologic: Yes (SEIZURES) Psychiatric: Yes Reproductive: No Respiratory: No Seizures: Yes Tetanus Vaccination: < 5 Years Influenza Vaccination: Yes ?: Not Past Surgical History Section: Yes Gynecologic Surgery: Yes (C/SECTIONS X2) Hysterectomy: Yes Other Surgery: Yes (C SECTION) Psychiatric History Psychiatric History Hx Psychiatric Treatment: Patient last admission to adult psych was 06/25/2004, and at that time she was diagnosis with Schizoaffective D/O. Patient reports treatment for auditory and visual hallucinations, depression and suicidal ideation. Patient has had several admissions into psych crisis unit ([facility]) with a history with Jeff VINES.It is unknown at this time whether or not patient has been compliant with outpatient treatment. History of Inpatient Treatment: Yes Social History Hx Alcohol Use: No (states sober for one year.) Hx Tobacco Use: Yes (1 PACK DAILY) Hx Substance Use: Yes (SOBER FOR 1 YEAR) Substance Use Type: Nicotine/Cigarettes Hx of Substance Use Treatment: No Allergies-Medications (Allergen,Severity, Reaction): Coded Allergies: Penicillin (Verified Allergy, Severe, 09/06/16) Reported Meds & Prescriptions Reported Meds & Active Scripts Active Potassium Chloride Powder (Potassium Chloride) 20 Meq Powderpack 20 Meq PO DAILY 15 Days Ditropan (Oxybutynin Chloride) 5 Mg Tab 5 Mg PO Q12HR 15 Days Olanzapine 15 Mg Tab 15 Mg PO HS 15 Days Gnp Loratadine (Loratadine) 10 Mg Tab 10 Mg PO DAILY 15 Days [place] Carbonate 300 Mg Cap 300 Mg PO BID 15 Days Haloperidol 10 Mg Tab 10 Mg PO HS 15 Days [Benztropine] 1 MG Tab 1 Mg PO BID 15 Days Ventolin Hfa 18 GM Inh (Albuterol Sulfate) 90 Mcg/Act Aer 2 Puff INH Q4H PRN 15 Days Review of Systems Except as stated in HPI: all other systems reviewed are Neg Exam Alert: Yes [place]: Person, Place, Date, Situation Mood: Calm Affect: Restricted Speech: Clear Eye Contact: Indirect Memory Intact: Immediate, Recent, Remote Insight/Judgement Adequate MDM Medical Decision Making Medical Record Reviewed: Yes Assessment/Plan Patient's Lincoln act is being lifted and she is being sent back to her adult living facility. She is calm, pleasant and cooperative and not complaining of psychotic symptoms or suicidal or homicidal ideation, plan or intent. She is well known to this physician and appears to be baseline. She is willing to be seen on an outpatient basis. Because she has a place to go and a way to get there, the patient is no longer threatening suicide. Orders Complete Blood Count With Diff (09/06/16 23:45) Comprehensive Metabolic Panel (09/06/16 23:45) [place] (Li) (09/06/16 23:45) Drug Screen, Random Urine (09/06/16 23:45) Alcohol (Ethanol) (09/06/16 23:45) Diet Regular Basic (09/07/16 Breakfast) Psych Screen (09/07/16 01:12) Diet Regular Basic (09/07/16 Dinner) Diet Regular Basic (09/07/16 Lunch) Results Vital Signs Date Time Temp Pulse Resp B/P Pulse Ox O2 Delivery O2 Flow Rate FiO2 09/07/16 10:00 69 18 111/68 Room Air 09/06/16 23:43 98.5 76 16 115/71 97 Laboratory Tests Test 09/06/16 23:49 White Blood Count 10.2 Red Blood Count 3.98 Hemoglobin 13.0 Hematocrit 37.2 Mean Corpuscular Volume 93.6 Mean Corpuscular Hemoglobin 32.7 Mean Corpuscular Hemoglobin 35.0 Concent Red Cell Distribution Width 12.5 Platelet Count 138 Mean Platelet Volume 8.2 Neutrophils (%) (Auto) 70.4 Lymphocytes (%) (Auto) 16.8 Monocytes (%) (Auto) 7.1 Eosinophils (%) (Auto) 4.8 Basophils (%) (Auto) 0.9 Neutrophils # (Auto) 7.2 Lymphocytes # (Auto) 1.7 Monocytes # (Auto) 0.7 Eosinophils # (Auto) 0.5 Basophils # (Auto) 0.1 CBC Comment DIFF FINAL Differential Comment Sodium Level 135 Potassium Level 3.8 Chloride Level 102 Carbon Dioxide Level 26.4 Anion Gap 7 Blood Urea Nitrogen 16 Creatinine 1.04 Estimat Glomerular Filtration 56 Rate Random Glucose 116 Calcium Level 9.2 Total Bilirubin 0.4 Aspartate Amino Transf 31 (AST/SGOT) Alanine Aminotransferase 48 (ALT/SGPT) Alkaline Phosphatase 86 Total Protein 7.2 Albumin 3.7 [place] Level 0.4 Ethyl Alcohol Level LESS THAN 3 Diagnosis Primary Impression: Schizophrenia, paranoid, chronic Robles Scott MD Sep 07, 2016 16:26
[2016-09-07 17:08] VITALS: BP 112/60; TEMP 98.7
== END 2016-09-07 17:30 | disposition home or self-care (01) ==
LOC: NEPD 23:20 → NEPJ 09-07 17:30
DX: F20.0 Paranoid schizophrenia (principal); F31.9 Bipolar disorder, unspecified; F17.210 Nicotine dependence, cigarettes, uncomplicated; Z88.0 Allergy status to penicillin
CPT/HCPCS: 71010; 80048; 80053; 80178; 80307; 82550; 83735; 83930; 83935; 84300; 84484; 85025; 85610; 85730; 93005; 99284; J7030

== ENCOUNTER 2016-09-17 12:30 | Emergency (ER) | payer MEDICAID, OTHER ==
[~2016-09-17] VITALS: Ht 170.2 cm; Wt 68.0 kg
[2016-09-17 12:32] VITALS: PULSE 102; RESP 20; TEMP 98.2; O2SAT 95
[2016-09-17 12:40] VITALS: BP 143/79; PULSE 94; RESP 18; O2SAT 98
--- NOTE | 2016-09-17 12:47 | PD ---
Physical Exam Time Seen by Provider: 12:36 Narrative 51 YO female from [facility] brought in by caregiver for evaluation of chest pain and possible psychiatric evaluation. Patient is poor historian & it is quite difficult to assess the reason of today's visit. She reports chest pain, nonradiating, duration 4 days, severity 4/10. Patient seen at triage desk. Vital signs reviewed. Patient awaiting bed placement. Data Data Last Documented VS Vital Signs Date Time Temp Pulse Resp B/P Pulse Ox O2 Delivery O2 Flow Rate FiO2 09/17/16 12:32 98.2 102 20 95 Room Air MDM Supervised Visit with RADHA: Claudia Blanton Sep 17, 2016 12:47
--- NOTE | 2016-09-17 13:04 | PD ---
HPI . chest pain Chief Complaint: Psychiatric Symptoms Time Seen by Provider: 13:04 Travel History International Travel<30 days: No Contact w/Intl Traveler<30days: No Traveled to known affect area: No History of Present Illness HPI 51-year-old female here with complaints of chest pain. Patient was recently here on September 06, 2016 and she tells me that she was actually here because of chest pain, however she was under [place] act. I've reviewed the documentation is there were no issues relating to chest pain. Patient is reporting that she has constant chest pain since that is worse with palpation into the area of the left chest wall. She denies any nausea, vomiting or diaphoresis. She was brought in by a network field engineer from [facility], who reports that patient has had some issues with insomnia and restlessness. She was hoping for another psychiatric evaluation. Patient currently denies any mood disorder, depression, anxiety, suicide or homicidal ideation. She is very comfortable and cooperative. She tells me that her main issue is chest discomfort. She also reports some right hip pain in an old surgical incision from a prior surgery. Pain is localized to the right incision site. There is some scar tissue there. NO evidence of acute injury and she denies any falls. She also reports some increased urinary frequency. She does take medications for overactive bladder. She denies any dysuria. She denies any vaginal discharge. She has no other complaints. She denies any sob, nausea, vomiting, or diaphoresis. PFSH Past Medical History Asthma: No Blood Disorders: No Bipolar Disorder: Yes Anxiety: Yes Depression: Yes Cancer: No Cardiovascular Problems: No COPD: No Diabetes: No Diminished Hearing: No Endocrine: No Genitourinary: No Hepatitis: Yes (HEP C) Immune Disorder: No Musculoskeletal: No Neurologic: Yes (SEIZURES) Psychiatric: Yes Reproductive: No Respiratory: No Seizures: Yes Past Surgical History Section: Yes Gynecologic Surgery: Yes (C/SECTIONS X2) Hysterectomy: Yes Other Surgery: Yes (C SECTION) Social History Alcohol Use: No (states sober for one year.) Tobacco Use: Yes (1 PACK DAILY) Substance Use: Yes (SOBER FOR 1 YEAR) Allergies-Medications (Allergen,Severity, Reaction): Coded Allergies: Penicillin (Verified Allergy, Severe, 09/17/16) Reported Meds & Prescriptions Reported Meds & Active Scripts Active Potassium Chloride Powder (Potassium Chloride) 20 Meq Powderpack 20 Meq PO DAILY 15 Days Ditropan (Oxybutynin Chloride) 5 Mg Tab 5 Mg PO Q12HR 15 Days Olanzapine 15 Mg Tab 15 Mg PO HS 15 Days Gnp Loratadine (Loratadine) 10 Mg Tab 10 Mg PO DAILY 15 Days [place] Carbonate 300 Mg Cap 300 Mg PO BID 15 Days Haloperidol 10 Mg Tab 10 Mg PO HS 15 Days [Benztropine] 1 MG Tab 1 Mg PO BID 15 Days Ventolin Hfa 18 GM Inh (Albuterol Sulfate) 90 Mcg/Act Aer 2 Puff INH Q4H PRN 15 Days Review of Systems General / Constitutional: No: Fever Eyes: No: Visual changes HENT: No: Headaches Cardiovascular: Positive: Chest Pain or Discomfort Respiratory: No: Shortness of Breath Gastrointestinal: No: Abdominal Pain Genitourinary: Positive: Frequency, No: Dysuria Musculoskeletal: Positive: Pain (right leg pain ) Skin: No Rash Neurologic: No: Weakness Psychiatric: No: Anxiety, Depression, Suicidal Ideations, Mood Disorder, Substance Abuse Endocrine: No: Polydipsia Hematologic/Lymphatic: No: Easy Bruising Physical Exam Narrative GENERAL: AAO x 3, no acute distress, Well-nourished, well-developed patient. SKIN: Warm and dry. No visible rashes or bruising. HEAD: Normocephalic and atraumatic. EYES: No scleral icterus. No injection or drainage. EOM intact, PERRLA ENT: No nasal drainage noted. Mucous membranes pink. Airway patent. NECK: Supple, trachea midline. No JVD. CARDIOVASCULAR: Regular rate and rhythm without murmurs, gallops, or rubs. Chest pain is reproducible with palpation to the left chest wall. RESPIRATORY: Breath sounds equal bilaterally. No accessory muscle use. No rhonchi or rales. GASTROINTESTINAL: Abdomen soft, non-tender, nondistended. EXTREMITIES: No cyanosis or edema. pain in the surgical scar area of right lateral thigh, normal ROM b/l LE, ambulatory, BACK: Nontender without obvious deformity. No CVA tenderness. NEURO: CN II-12 intact, loan funder strength normal b/l, UE and LE 5/5, no focal deficits PSYCH: AAO x 3, normal affect. Data Data Last Documented VS Vital Signs Date Time Temp Pulse Resp B/P Pulse Ox O2 Delivery O2 Flow Rate FiO2 09/17/16 13:22 99 Room Air 09/17/16 13:22 76 22 121/77 113/74 09/17/16 12:32 98.2 Orders Electrocardiogram (09/17/16 ) Basic Metabolic Panel (Bmp) (09/17/16 13:14) Ckmb (Isoenzyme) Profile (09/17/16 13:14) Complete Blood Count With Diff (09/17/16 13:14) Magnesium (Mg) (09/17/16 13:14) Prothrombin Time / Inr (Pt) (09/17/16 13:14) Act Partial Throm Time (Ptt) (09/17/16 13:14) Troponin I (09/17/16 13:14) Chest, Single Ap (09/17/16 13:14) Ecg Monitoring (09/17/16 13:14) Bilateral Bp Monitoring (09/17/16 13:14) Iv Access Insert/Monitor (09/17/16 13:14) Oximetry (09/17/16 13:14) Oxygen Administration (09/17/16 13:14) Sodium Chloride 0.9% Flush (Ns Flush) (09/17/16 13:15) Urinalysis - C+S If Indicated (09/17/16 13:14) Labs Laboratory Tests Test 09/17/16 13:20 White Blood Count 8.3 TH/MM3 Red Blood Count 4.11 MIL/MM3 Hemoglobin 13.6 GM/DL Hematocrit 38.7 % Mean Corpuscular Volume 94.1 FL Mean Corpuscular Hemoglobin 33.0 PG Mean Corpuscular Hemoglobin 35.1 % Concent Red Cell Distribution Width 12.6 % Platelet Count 179 TH/MM3 Mean Platelet Volume 8.4 FL Neutrophils (%) (Auto) 71.9 % Lymphocytes (%) (Auto) 15.8 % Monocytes (%) (Auto) 6.5 % Eosinophils (%) (Auto) 4.7 % Basophils (%) (Auto) 1.1 % Neutrophils # (Auto) 6.0 TH/MM3 Lymphocytes # (Auto) 1.3 TH/MM3 Monocytes # (Auto) 0.5 TH/MM3 Eosinophils # (Auto) 0.4 TH/MM3 Basophils # (Auto) 0.1 TH/MM3 CBC Comment DIFF FINAL Differential Comment Prothrombin Time 10.3 SEC Prothromb Time International 0.9 RATIO Ratio Activated Partial 23.8 SEC Thromboplast Time Urine Color COLORLESS Urine Turbidity CLEAR Urine pH 7.0 Urine Specific [place] 1.001 Urine Protein NEG mg/dL Urine Glucose (UA) NEG mg/dL Urine Ketones NEG mg/dL Urine Occult Blood NEG Urine Nitrite NEG Urine Bilirubin NEG Urine Urobilinogen LESS THAN 2.0 MG/DL Urine Leukocyte Esterase NEG Urine WBC LESS THAN 1 /hpf Microscopic Urinalysis Comment CULT NOT INDICATED Sodium Level 135 MEQ/L Potassium Level 4.2 MEQ/L Chloride Level 105 MEQ/L Carbon Dioxide Level 22.9 MEQ/L Anion Gap 7 MEQ/L Blood Urea Nitrogen 10 MG/DL Creatinine 0.96 MG/DL Estimat Glomerular Filtration 62 ML/MIN Rate Random Glucose 78 MG/DL Calcium Level 9.3 MG/DL Magnesium Level 2.3 MG/DL Total Creatine Kinase 76 U/L Troponin I LESS THAN 0.02 NG/ML [facility] Medical Decision Making Medical Screen Exam Complete: Yes Emergency Medical Condition: Yes Medical Record Reviewed: Yes Differential Diagnosis Atypical chest pain, insomnia, chronic hip pain, UTI, less likely ACS, less likely pulmonary emboli, Narrative Course 51-year-old female here with complaints of chest pain. She was here on September 06, 2016 and tells me she has had pain since then. Labs, EKG and chest x-ray have been ordered. She denies any shortness of breath. She also admits to increased urinary frequency, but suffers from overactive bladder. UA has been ordered. Is reporting some right leg pain in an old surgical incision. This has been examined and there is no acute abnormality. I do not believe imaging is indicated as the pain is localized to the old scar. Last Impressions Chest X-Ray 09/17/16 1314 Signed Impressions: Service Date/Time: Saturday, September 17, 2016 13:17 - CONCLUSION: 1. No acute cardiopulmonary disease. Amando Carmona MD Laboratory Tests Test 09/17/16 13:20 White Blood Count 8.3 TH/MM3 Red Blood Count 4.11 MIL/MM3 Hemoglobin 13.6 GM/DL Hematocrit 38.7 % Mean Corpuscular Volume 94.1 FL Mean Corpuscular Hemoglobin 33.0 PG Mean Corpuscular Hemoglobin 35.1 % Concent Red Cell Distribution Width 12.6 % Platelet Count 179 TH/MM3 Mean Platelet Volume 8.4 FL Neutrophils (%) (Auto) 71.9 % Lymphocytes (%) (Auto) 15.8 % Monocytes (%) (Auto) 6.5 % Eosinophils (%) (Auto) 4.7 % Basophils (%) (Auto) 1.1 % Neutrophils # (Auto) 6.0 TH/MM3 Lymphocytes # (Auto) 1.3 TH/MM3 Monocytes # (Auto) 0.5 TH/MM3 Eosinophils # (Auto) 0.4 TH/MM3 Basophils # (Auto) 0.1 TH/MM3 CBC Comment DIFF FINAL Differential Comment Prothrombin Time 10.3 SEC Prothromb Time International 0.9 RATIO Ratio Activated Partial 23.8 SEC Thromboplast Time Urine Color COLORLESS Urine Turbidity CLEAR Urine pH 7.0 Urine Specific [place] 1.001 Urine Protein NEG mg/dL Urine Glucose (UA) NEG mg/dL Urine Ketones NEG mg/dL Urine Occult Blood NEG Urine Nitrite NEG Urine Bilirubin NEG Urine Urobilinogen LESS THAN 2.0 MG/DL Urine Leukocyte Esterase NEG Urine WBC LESS THAN 1 /hpf Microscopic Urinalysis Comment CULT NOT INDICATED Sodium Level 135 MEQ/L Potassium Level 4.2 MEQ/L Chloride Level 105 MEQ/L Carbon Dioxide Level 22.9 MEQ/L Anion Gap 7 MEQ/L Blood Urea Nitrogen 10 MG/DL Creatinine 0.96 MG/DL Estimat Glomerular Filtration 62 ML/MIN Rate Random Glucose 78 MG/DL Calcium Level 9.3 MG/DL Magnesium Level 2.3 MG/DL Total Creatine Kinase 76 U/L Troponin I LESS THAN 0.02 NG/ML There were no gross abnormalities on labs, chest x-ray or EKG. I believe patient's chest pain is atypical in nature and likely related to her underlying psychiatric issues. I recommend that she follow-up with her primary care provider at the [facility] where she is living. She may need adjustment of her medications. I've advised her for symptoms continue that she should return to the emergency department. Patient verbalized understanding of instructions, questions were answered, and thanked me for their care. I advised them if their condition worsens, please return to the nearest emergency room for further care. Diagnosis Primary Impression: Chest pain Qualified Code: R07.89 - Other chest pain Additional Impression: Anxiety Patient Instructions: General Instructions Additional Instructions: Please have her follow-up with her primary care provider. Her medications may need to be adjusted for her psychiatric issues. Med/Other Pt SpecificInfo: No Change to Meds Disposition: 01 DISCHARGE HOME Condition: Stable Stacy Willett Sep 17, 2016 13:04
[2016-09-17] MEDS ORDERED: SODIUM CHLORIDE 0.9% FLUSH 10 ML FLUSH IVF PRN (13:15)
[2016-09-17 13:22] VITALS: BP_SYST 113; BP_SYST 121; BP_DIAS 74; BP_DIAS 77; PULSE 76; RESP 22; O2SAT 97; O2SAT 99
[2016-09-17 13:40] LABS: BASOPHIL # 0.1 TH/MM3 (0-0.2); BASOPHIL % 1.1 % (0.0-2.0); EOSINOPHIL # 0.4 TH/MM3 (0-0.4); EOSINOPHIL % 4.7 % (0.0-4.0); HEMATOCRIT 38.7 % (35.0-46.0); HEMO FLAGS DIFF FINAL; LYMPH % 15.8 % (9.0-44.0); LYMPHOCYTE # 1.3 TH/MM3 (1.0-4.8); MEAN CELL VOLUME 94.1 FL (80.0-100.0); MEAN CORPUSCULAR HGB CONC 35.1 % (32.0-36.0); MONO % 6.5 % (0.0-8.0); NEUT % 71.9 % (16.0-70.0); PLATELET COUNT 179 TH/MM3 (150-450); RED BLOOD COUNT 4.11 MIL/MM3 (4.00-5.30); RED CELL DISTRIBUTION WIDTH 12.6 % (11.6-17.2); WHITE BLOOD COUNT 8.3 TH/MM3 (4.0-11.0)
[2016-09-17 13:42] LABS: BLOOD, URINE NEG (NEG); GLUCOSE,URINE NEG (NEG); KETONE, URINE NEG (NEG); NITRITE,URINE NEG (NEG); URINE COLOR COLORLESS (YELLW/STRAW)
[2016-09-17 13:43] LABS: COMMENT (UR) CULT NOT INDICATED; CULTURE IF INDICATED CULT NOT INDICATED
[2016-09-17 13:55] LABS: APTT (PATIENT) 23.8 SEC (24.3-30.1); INTERNATIONAL NORMALIZED RATIO 0.9 RATIO; PROTHROMBIN TIME - PATIENT 10.3 SEC (9.8-11.6)
--- NOTE | 2016-09-17 14:16 | RADRPT ---
EXAM DATE/TIME: 09/17/2016 13:17 [place] COMPARISON: CHEST SINGLE AP, September 04, 2016, 17:50. INDICATIONS : Patient is having chest pain since yesterday. MEDICAL HISTORY : None. SURGICAL HISTORY : None. ENCOUNTER: Initial ACUITY: 1 day PAIN SCORE: 5/10 LOCATION: Bilateral chest FINDINGS: A single view of the chest demonstrates the lungs to be symmetrically aerated without evidence of mas s, infiltrate or effusion. The cardiomediastinal contours are unremarkable. Osseous structures are intact. CONCLUSION: 1. No acute cardiopulmonary disease. Amando Carmona MD on September 17, 2016 at 14:13 Board Certified Radiologist. This report was verified electronically.
[2016-09-17 14:17] LABS: ANION GAP 7 MEQ/L (5-15); BICARBONATE 22.9 MEQ/L (21.0-32.0); BLOOD UREA NITROGEN 10 MG/DL (7-18); CHLORIDE 105 MEQ/L (98-107); MAGNESIUM 2.3 MG/DL (1.5-2.5); POTASSIUM 4.2 MEQ/L (3.5-5.1); SODIUM (NA) 135 MEQ/L (136-145)
[2016-09-17 14:24] LABS: GLOMERULAR FILTRATION RATE 62 ML/MIN (>89)
[2016-09-17 14:30] LABS: CREATINE KINASE 76 U/L (26-192)
--- NOTE | 2016-09-18 15:15 | EKG ---
Date Performed: 09/17/2016 Time Performed: 12:50:55 PTAGE: 51 years EKG: Sinus rhythm WITH OCCASIONAL SUPRAVENTRICULAR PREMATURE COMPLEXES SEPTAL MYOCARDIAL INFARCTION ABNORMAL ECG Levon red to prior tracing no significant change PREVIOUS TRACING 09/04/2016 @17.38 DOCTOR: Ian Nguyen Interpretating Date/Time 09/18/2016 15:14:57
== END 2016-09-17 15:26 | disposition home or self-care (01) ==
LOC: NEPD 12:30
DX: R07.9 Chest pain, unspecified (principal); F41.9 Anxiety disorder, unspecified; R94.31 Abnormal electrocardiogram [ECG] [EKG]; R56.9 Unspecified convulsions; F17.210 Nicotine dependence, cigarettes, uncomplicated; Z88.0 Allergy status to penicillin
CPT/HCPCS: 71010; 80048; 81001; 82550; 83735; 84484; 85025; 85610; 85730; 93005

== ENCOUNTER 2016-11-23 14:49 | Emergency (ER) | payer MEDICAID ==
[~2016-11-23] VITALS: Ht 170.2 cm; Wt 70.0 kg
[2016-11-23 14:56] VITALS: BP 107/78; PULSE 60; RESP 15; TEMP 98.4; O2SAT 98
== END 2016-11-23 15:44 | disposition left against medical advice (07) ==
LOC: NEDAMB 14:49
DX: M79.604 Pain in right leg (principal); Z53.21 Procedure and treatment not carried out due to patient leaving prior to being seen by health care provider

== ENCOUNTER 2016-11-28 14:32 | Emergency (ER) | payer MEDICAID ==
[~2016-11-28] VITALS: Ht 170.2 cm; Wt 70.0 kg
[2016-11-28 14:34] VITALS: BP 160/90; PULSE 70; RESP 15; TEMP 98.2; O2SAT 98
--- NOTE | 2016-11-28 18:23 | PD ---
HPI Chief Complaint: Bite or Sting Time Seen by Provider: 18:22 Travel History International Travel<30 days: No Contact w/Intl Traveler<30days: No Traveled to known affect area: No History of Present Illness HPI 51-year-old female with history of dog bite this morning from a dog that lives down the road. Patient has a history of schizoaffective disorder and lives in a custodial with a worker who is here today. Patient has history of tetanus 3 years ago. Animal control was called and they stated that the dog is going to be quarantined for the next 10 days at the dog's home for signs of rabies. Patient has puncture wounds to the left lateral distal thigh behind the knee. There is some ecchymosis but no active bleeding. Pain is a 5 out of 10. Patient has allergies to penicillin, erythromycin, and Keflex. PFSH Past Medical History Asthma: No Blood Disorders: No Bipolar Disorder: Yes Anxiety: Yes Depression: Yes Cancer: No Cardiovascular Problems: No COPD: No Diabetes: No Diminished Hearing: No Endocrine: No Genitourinary: No Hepatitis: Yes (HEP C) Immune Disorder: No Musculoskeletal: No Neurologic: Yes (SEIZURES) Psychiatric: Yes Reproductive: No Respiratory: Yes (asthma) Seizures: Yes ?: Unknown Past Surgical History Section: Yes Gynecologic Surgery: Yes (C/SECTIONS X2) Hysterectomy: Yes Other Surgery: Yes (C SECTION) Social History Alcohol Use: No Tobacco Use: Yes Substance Use: No Allergies-Medications (Allergen,Severity, Reaction): Coded Allergies: penicillin G (Unverified Allergy, Severe, 11/18/16) Reported Meds & Prescriptions Reported Meds & Active Scripts Active Potassium Chloride Powder (Potassium Chloride) 20 Meq Powderpack 20 Meq PO DAILY 15 Days Ditropan (Oxybutynin Chloride) 5 Mg Tab 5 Mg PO Q12HR 15 Days Olanzapine 15 Mg Tab 15 Mg PO HS 15 Days Gnp Loratadine (Loratadine) 10 Mg Tab 10 Mg PO DAILY 15 Days [place] Carbonate 300 Mg Cap 300 Mg PO BID 15 Days Haloperidol 10 Mg Tab 10 Mg PO HS 15 Days [Benztropine] 1 MG Tab 1 Mg PO BID 15 Days Ventolin Hfa 18 GM Inh (Albuterol Sulfate) 90 Mcg/Act Aer 2 Puff INH Q4H PRN 15 Days Review of Systems Except as stated in HPI: all other systems reviewed are Neg General / Constitutional: No: Fever Eyes: No: Visual changes HENT: No: Headaches Cardiovascular: No: Chest Pain or Discomfort Respiratory: No: Shortness of Breath Gastrointestinal: No: Abdominal Pain Genitourinary: No: Dysuria Musculoskeletal: No: Pain Skin: Positive Lesions (see history of present illness.), No Rash Neurologic: No: Weakness Psychiatric: No: Depression Endocrine: No: Polydipsia Hematologic/Lymphatic: No: Easy Bruising Physical Exam Narrative GENERAL: Patient appears in no acute distress. SKIN: Warm and dry. Normal color. Normal turgor. Patient has 2 puncture wounds to the left posterior distal thigh just above the knee. There is localized ecchymosis but no bleeding. HEAD: Atraumatic. Normocephalic. EYES: Pupils equal and round. No scleral icterus. No injection or drainage. ENT: No nasal bleeding or discharge. Mucous membranes pink and moist. Pharynx is clear. NECK: Trachea midline. Supple. CARDIOVASCULAR: Regular rate and rhythm. RESPIRATORY: No accessory muscle use. Clear to auscultation. Breath sounds equal bilaterally. GASTROINTESTINAL: Abdomen soft, non-tender, nondistended. Hepatic and splenic margins not palpable. MUSCULOSKELETAL: Extremities without clubbing, cyanosis, or edema. No obvious deformities. NEUROLOGICAL: Awake and alert. No obvious cranial nerve deficits. Motor grossly within normal limits. Five out of 5 muscle strength in the arms and legs. Normal speech. PSYCHIATRIC: Appropriate mood and affect; insight and judgment normal. Data Data Last Documented VS Vital Signs Date Time Temp Pulse Resp B/P (MAP) Pulse Ox O2 Delivery O2 Flow Rate FiO2 11/28/16 14:34 98.2 70 15 160/90 (113) 98 MDM Medical Decision Making Medical Screen Exam Complete: Yes Emergency Medical Condition: Yes Medical Record Reviewed: Yes Differential Diagnosis Dog bite. Need for antibiotics. Possible need for rabies. Narrative Course Patient is medically stable at time of exam. Patient will be treated with Bactrim DS twice a day for 7 days. Metronidazole 500 mg 3 times a day for 7 days. Animal control has been alerted and should be followed up with to ensure no further need for rabies immune globulin or vaccine. Patient can follow with her primary care physician as needed. Patient can return to emergency department as needed. Diagnosis Primary Impression: Dog bite of thigh without complication Qualified Codes: S71.152A - Open bite, left thigh, initial encounter; W54.0XXA - Bitten by dog, initial encounter Referrals: Primary Care Physician Patient Instructions: Animal Bite (ED), General Instructions Additional Instructions: Patient will be treated with Bactrim DS twice a day for 7 days. Metronidazole 500 mg 3 times a day for 7 days. Animal control has been alerted and should be followed up with to ensure no further need for rabies immune globulin or vaccine. Patient can follow with her primary care physician as needed. Patient can return to emergency department as needed. Disposition: 01 DISCHARGE HOME Condition: Stable Latrell Solomon Nov 28, 2016 18:23
[2016-11-28] MEDS ORDERED: METR500T10 PO (18:37)
[2016-11-28] MEDS ORDERED: BACT800T5 PO (18:37)
[2016-11-28] MEDS ORDERED: SULFAMETHOXAZOLE-TRIMETHOPRIM DS 800-160 MG TAB PO ONE (19:30)
[2016-11-28] MEDS ORDERED: metroNIDAZOLE 500 MG TAB PO ONE (19:30)
== END 2016-11-28 19:01 | disposition home or self-care (01) ==
LOC: NEPC 14:32
DX: S71.152A Open bite, left thigh, initial encounter (principal); F25.9 Schizoaffective disorder, unspecified; F31.9 Bipolar disorder, unspecified; B19.20 Unspecified viral hepatitis C without hepatic coma; R56.9 Unspecified convulsions; J45.909 Unspecified asthma, uncomplicated; W54.0XXA Bitten by dog, initial encounter; Z79.899 Other long term (current) drug therapy; Z72.0 Tobacco use
CPT/HCPCS: 99284

== ENCOUNTER 2017-11-03 10:45 | Inpatient (IN) ==
[2017-11-03 11:47] LABS: Baso # (Auto) 0.1 th/mm3 (0.0-0.2); Eos # (Auto) 0.2 th/mm3 (0.0-0.4); Eos % (Auto) 2.6 % (0.0-4.0); Hematocrit 36.4 % (35.0-46.0); Hemoglobin 12.9 gm/dL (11.6-15.3); Lymph # (Auto) 0.9 th/mm3 (1.0-4.8); Lymph % (Auto) 13.2 % (9.0-44.0); Mean Corpuscular HGB Conc 35.6 % (32.0-36.0); Mean Corpuscular Volume 92.8 fL (80.0-100.0); Mean Platelet Volume 7.6 fL (7.0-11.0); Mono # (Auto) 0.5 th/mm3 (0.0-0.9); Mono % (Auto) 7.9 % (0.0-8.0); Neut # (Auto) 5.2 th/mm3 (1.8-7.7); Neut % (Auto) 75.3 % (16.0-70.0); Platelet Count 205 th/mm3 (150-450); Red Blood Count 3.92 mil/mm3 (4.00-5.30); Red Cell Distribution Width 13.2 % (11.6-17.2); White Blood Count 6.9 th/mm3 (4.0-11.0)
[2017-11-03 11:58] LABS: Bilirubin,Urine Negative (Negative); Clarity,Urine Clear (Clear); Color,Urine Colorless (Yellw/Straw); Glucose,Urine (UA) Negative (Negative); Leukocyte Esterase,Urine Negative (Negative); Nitrite,Urine Negative (Negative); Specific Gravity,Urine 1.001 (1.002-1.035); Squamous Epithelial Cell,Urine <1 /hpf (0-5)
[2017-11-03 12:04] LABS: Amphetamine Screen,Urine Neg (Neg); Barbiturate Screen,Urine Neg (Neg); Cannabinoid Screen,Urine Neg (Neg); Cocaine Screen,Urine Neg (Neg)
[2017-11-03 12:19] LABS: Opiate Screen,Urine Neg (Neg)
[2017-11-03 12:21] LABS: Albumin 3.7 g/dL (3.4-5.0); Anion Gap 10 meq/L (5-15); Aspartate Aminotransferase 24 U/L (15-37); Blood Urea Nitrogen 8 mg/dL (7-18); Calcium 8.8 mg/dL (8.5-10.1); Carbon Dioxide 19.8 meq/L (21.0-32.0); Chloride 92 meq/L (98-107); Glomerular Filtration Rate 74 mL/min (>89); Glucose,Random 81 mg/dL (74-106); Potassium 3.7 meq/L (3.5-5.1)
--- NOTE | 2017-11-03 12:21 | ED ---
HPI General Chief Complaint: Psychiatric Symptoms Stated Complaint: psych eval Time Seen by Provider: 11/03/17 11:21 Source: patient and police Mode of arrival: ambulatory Limitations: no limitations History of Present Illness HPI Narrative: 52-year-old female presents to the emergency room under a [place] act for suicidal ideation. Patient states her boyfriend left her this morning and she wants to kill herself. She informed the police officers that she drank bleach, cut her bilateral wrists, and cut her head with a chainsaw in an effort to kill herself. Upon reevaluation, patient denies doing this. She denies any physical complaints or pain. She lives in a assisted and the assisted states that she did not harm herself this morning. Patient admits to drinking alcohol occasionally. Denies illicit drug use. Admits to smoking cigarettes. complaint: suicidal ideation and feels depressed Onset (ago): day(s) Duration: constant History of same: Yes Relieving factors: none Exacerbating factors: none Related Data Home Medications Medication Instructions Recorded Confirmed benztropine [Cogentin] mg IM QMONTH 11/03/17 haloperidol decanoate [Haldol mg IM Q4W 11/03/17 Decanoate] Allergies Allergy/AdvReac Type Severity Reaction Status Date / Time cephalexin Allergy Unknown Anaphylaxis Verified 10/17/17 20:43 penicillin G Allergy Unknown Anaphylaxis Verified 10/17/17 20:43 Penicillins Allergy Unknown Anaphylaxis Verified 10/17/17 20:43 Erythromycin Allergy Unknown Anaphylaxis Uncoded 10/17/17 20:43 Review of Systems ROS Unobtainable All other systems reviewed negative except as stated in HPI PMFSH Medical History Medical History Epilepsy (Acute) Heart murmur (Acute) Manic depression (Acute) Bipolar 1 disorder (Acute) Schizophrenia (Acute) Surgical History Surgical History Hx of section (Acute) Social History Social History Substance History: Past History Second Hand Smoke Exposure: No Smoking Status: Heavy tobacco smoker Tobacco Type: Cigarettes How Often Do You Have a Drink Containing Alcohol: Never Exam Narrative Exam Narrative: At psychGENERAL: Well-nourished, well-developed female no acute distress. Afebrile. Ambulatory. SKIN: Focused skin assessment warm/dry. HEAD: Normocephalic. EYES: No scleral icterus. No injection or drainage. NECK: Supple, trachea midline. No JVD or lymphadenopathy. CARDIOVASCULAR: Regular rate and rhythm without murmurs, gallops, or rubs. RESPIRATORY: Breath sounds equal bilaterally. No accessory muscle use. PSYCHIATRIC: No hallucinations. Active delusions. Labile mood. Course Initial Documented Vital Signs Temperature 98.6 F 11/03/17 10:54 Pulse Rate 85 11/03/17 10:54 Respiratory Rate 18 11/03/17 10:54 Blood Pressure 118/79 11/03/17 10:54 Pulse Oximetry 100 11/03/17 10:54 Last Documented Vital Signs Temperature 98.6 F 11/03/17 10:54 Pulse Rate 63 11/03/17 13:59 Respiratory Rate 14 11/03/17 13:59 Blood Pressure 123/73 11/03/17 13:59 Pulse Oximetry 100 11/03/17 13:59 Medical Decision Making MDM Narrative Medical decision making narrative: 52-year-old female with history of schizophrenia and bipolar disorder presents to the emergency room under a [place] act for evaluation of suicidal ideation. Patient told the police officers that she cut her wrists, cut her head with a chainsaw, and drank over a gallon of bleach but denies that at this time. She denies any other physical complaints. She has no physical exam findings consistent with any of these statements. Her abdomen is soft, nontender. No esophageal shepard or blisters. Patient is delusional about the wounds that she inflicted upon herself and has a very labile mood. IV access established and basic labs obtained. CBC is unremarkable, CMP is remarkable for hyponatremia of 122. Patient was given 1 L bolus of normal saline. She will be admitted to the medical/psychiatric unit for her hyponatremia. Differential Diagnosis Differential Diagnosis: psychosis, substance induced mood disorder, schizophrenia, electrolyte abnormality Lab Data Result diagrams: 11/03/17 11:04 11/03/17 11:04 Lab Results 11/03/17 11/03/17 11/03/17 Range/Units 11:04 11:04 11:04 WBC 6.9 (4.0-11.0) th/mm3 RBC 3.92 L (4.00-5.30) mil/mm3 Hgb 12.9 (11.6-15.3) gm/dL Hct 36.4 (35.0-46.0) % MCV 92.8 (80.0-100.0) fL MCH 33.0 (27.0-34.0) pg MCHC 35.6 (32.0-36.0) % RDW 13.2 (11.6-17.2) % Plt Count 205 (150-450) th/mm3 MPV 7.6 (7.0-11.0) fL Neut % (Auto) 75.3 H (16.0-70.0) % Lymph % (Auto) 13.2 (9.0-44.0) % Treasure % (Auto) 7.9 (0.0-8.0) % Eos % (Auto) 2.6 (0.0-4.0) % Baso % (Auto) 1.0 (0.0-2.0) % Neut # (Auto) 5.2 (1.8-7.7) th/mm3 Lymph # (Auto) 0.9 L (1.0-4.8) th/mm3 Treasure # (Auto) 0.5 (0.0-0.9) th/mm3 Eos # (Auto) 0.2 (0.0-0.4) th/mm3 Baso # (Auto) 0.1 (0.0-0.2) th/mm3 WBC Differential . Differential Comment Auto diff final Sodium 122 L* (136-145) meq/L Potassium 3.7 (3.5-5.1) meq/L Chloride 92 L (98-107) meq/L Carbon Dioxide 19.8 L (21.0-32.0) meq/L Anion Gap 10 (5-15) meq/L BUN 8 (7-18) mg/dL Creatinine 0.82 (0.50-1.00) mg/dL Estimated GFR 74 L (>89) mL/min Random Glucose 81 (74-106) mg/dL Calcium 8.8 (8.5-10.1) mg/dL Total Bilirubin 0.5 (0.2-1.0) mg/dL AST 24 (15-37) U/L ALT 31 (10-53) U/L Alkaline Phosphatase 105 (45-117) U/L Total Protein 6.9 (6.4-8.2) g/dL Albumin 3.7 (3.4-5.0) g/dL TSH 1.120 (0.358-3.740) uIU/mL Urine Color (Demondw/Straw) Urine Clarity (Clear) Urine pH (5.0-8.5) Ur Specific [place] (1.002-1.035) Urine Protein (Neg-Trace) mg/dL Urine Glucose (UA) (Negative) mg/dL Urine Ketones (Negative) mg/dL Urine Occult Blood (Negative) Urine Nitrate (Negative) Urine Bilirubin (Negative) Urine Urobilinogen (Less than 2) mg/dL Ur Leukocyte Esterase (Negative) Urine RBC (0-3) /hpf Urine WBC (0-5) /hpf Ur Squamous Epith Cells (0-5) /hpf Micro UA Comment Urine Culture Comments Salicylates Less than 1.7 L (2.8-20.0) mg/dL Urine Opiates Screen (Neg) Acetaminophen Less than 2.0 L (10.0-30.0) mcg/mL Ur Barbiturates Screen (Neg) Ur Amphetamines Screen (Neg) U Benzodiazepines Scrn (Neg) Urine Cocaine Screen (Neg) U Cannabinoids Screen (Neg) Serum Alcohol Less than 3 (0-5) mg/dL 11/03/17 11/03/17 Range/Units 11:10 11:10 WBC (4.0-11.0) th/mm3 RBC (4.00-5.30) mil/mm3 Hgb (11.6-15.3) gm/dL Hct (35.0-46.0) % MCV (80.0-100.0) fL MCH (27.0-34.0) pg MCHC (32.0-36.0) % RDW (11.6-17.2) % Plt Count (150-450) th/mm3 MPV (7.0-11.0) fL Neut % (Auto) (16.0-70.0) % Lymph % (Auto) (9.0-44.0) % Treasure % (Auto) (0.0-8.0) % Eos % (Auto) (0.0-4.0) % Baso % (Auto) (0.0-2.0) % Neut # (Auto) (1.8-7.7) th/mm3 Lymph # (Auto) (1.0-4.8) th/mm3 Treasure # (Auto) (0.0-0.9) th/mm3 Eos # (Auto) (0.0-0.4) th/mm3 Baso # (Auto) (0.0-0.2) th/mm3 WBC Differential Differential Comment Sodium (136-145) meq/L Potassium (3.5-5.1) meq/L Chloride (98-107) meq/L Carbon Dioxide (21.0-32.0) meq/L Anion Gap (5-15) meq/L BUN (7-18) mg/dL Creatinine (0.50-1.00) mg/dL Estimated GFR (>89) mL/min Random Glucose (74-106) mg/dL Calcium (8.5-10.1) mg/dL Total Bilirubin (0.2-1.0) mg/dL AST (15-37) U/L ALT (10-53) U/L Alkaline Phosphatase (45-117) U/L Total Protein (6.4-8.2) g/dL Albumin (3.4-5.0) g/dL TSH (0.358-3.740) uIU/mL Urine Color Colorless (Yellw/Straw) Urine Clarity Clear (Clear) Urine pH 6.0 (5.0-8.5) Ur Specific [place] 1.001 L (1.002-1.035) Urine Protein Negative (Neg-Trace) mg/dL Urine Glucose (UA) Negative (Negative) mg/dL Urine Ketones Negative (Negative) mg/dL Urine Occult Blood Small H (Negative) Urine Nitrate Negative (Negative) Urine Bilirubin Negative (Negative) Urine Urobilinogen Less than 2 (Less than 2) mg/dL Ur Leukocyte Esterase Negative (Negative) Urine RBC Less than 1 (0-3) /hpf Urine WBC Less than 1 (0-5) /hpf Ur Squamous Epith Cells <1 (0-5) /hpf Micro UA Comment Culture not ind Urine Culture Comments Culture not ind Salicylates (2.8-20.0) mg/dL Urine Opiates Screen Neg (Neg) Acetaminophen (10.0-30.0) mcg/mL Ur Barbiturates Screen Neg (Neg) Ur Amphetamines Screen Neg (Neg) U Benzodiazepines Scrn Neg (Neg) Urine Cocaine Screen Neg (Neg) U Cannabinoids Screen Neg (Neg) Serum Alcohol (0-5) mg/dL Discharge Plan Discharge Disposition Patient Disposition: 30 Still Patient Discharge Condition Condition: Stable Discharge Details Diagnosis: Acute hyponatremia Physicians Team ED Provider: Hyacinth Dye ED Midlevel Provider: Zaida Storey Primary Care Provider: UNKNOWN, Rxs /Orders / Referrals /Forms Prescriptions: No Action haloperidol decanoate [Haldol Decanoate] 50 mg/mL Solution IM Q4W RF: 0 benztropine [Cogentin] 2 mg/2 mL Solution IM QMONTH RF: 0 Status ED Status: Admitted Patient
[2017-11-03 12:24] LABS: Sodium 122 meq/L (136-145)
[2017-11-03 12:31] LABS: Alanine Aminotransferase 31 U/L (10-53); Alkaline Phosphatase 105 U/L (45-117); Total Protein 6.9 g/dL (6.4-8.2)
[2017-11-03] MEDS ORDERED: Sod Chloride 0.9% Inj 1,000 ML IV.SIG ONE (13:48)
--- NOTE | 2017-11-04 14:33 | P.CONIM ---
History of Present Illness Requesting Physician: Heri Patel Reason for Consult: Hyponatremia Primary Care Provider: UNKNOWN Chief Complaint: Hyponatremia History of Present Illness: This is a 52-year-old female with history of bipolar 1 disorder, manic depression, schizophrenia and epilepsy presenting to the hospital [place] acted for suicidal ideations. She threatened to cut her wrists with a chainsaw and drink bleach. She now denies to doing this. She is presently admitted at the psych unit was found to have hyponatremia. Per patient, she has been drinking a lot of water prior to admission because she has been very thirsty. Her urine is allegedly yellow has been urinating a lot. No nausea or vomiting. Denies any chest pain. Poor historian due to patient's psychiatric status. Family history: Noncontributory. Review of Systems Difficult to obtain, not very cooperative. [facility] - History History Provided By: Patient - Medical History Medical History: Medical History (Last Reviewed 11/04/17 @ 14:21 by Chantelle Garrett MD) Epilepsy (Acute) Heart murmur (Acute) Manic depression (Acute) Bipolar 1 disorder (Acute) Schizophrenia (Acute) - Surgical History Surgical History: Surgical History (Last Reviewed 11/04/17 @ 14:21 by Chantelle Garrett MD) Hx of section (Acute) - Tobacco History Second Hand Smoke Exposure: No Tobacco Use In Past 30 Days: Yes Smoking Status: Heavy tobacco smoker Tobacco Type: Cigarettes - Alcohol History How Often Do You Have a Drink Containing Alcohol: Never - Substance Use History Substance History: Past History - Substance Use Type Marijuana Status: Sustained Remission Route Used: Inhalation Comment: last used approx. 3 yrs. ago - Immunization History Tetanus Immunization: Unsure Hx Influenza Vaccine This Season: Yes Medications and Allergies Active Medications: Active Medications Diphenhydramine HCl (Benadryl) 50 mg PO HS PRN PRN Reason: INSOMNIA Diphenhydramine HCl (Benadryl Inj) 50 mg IM HS PRN PRN Reason: INSOMNIA IF UNABLE TO TAKE PO Ibuprofen (Motrin) 600 mg PO Q6H PRN PRN Reason: PAIN 1-10 Lorazepam (Ativan) 2 mg PO Q8H PRN PRN Reason: ANXIETY Nicotine (Habitrol 21 Mg Patch.24 Hr) 1 patch T-DERMAL DAILY ZACH Last Admin: 11/04/17 09:14 Dose: 1 patch Patch Removal (Remove Old Patch) 1 each T-DERMAL HS ONE Stop: 11/04/17 21:01 Allergies Allergy/AdvReac Type Severity Reaction Status Date / Time cephalexin Allergy Unknown Anaphylaxis Verified 10/17/17 20:43 penicillin G Allergy Unknown Anaphylaxis Verified 10/17/17 20:43 Penicillins Allergy Unknown Anaphylaxis Verified 10/17/17 20:43 Erythromycin Allergy Unknown Anaphylaxis Uncoded 10/17/17 20:43 Home Medications Medication Instructions Recorded Confirmed Type benztropine [Cogentin] mg IM QMONTH 11/03/17 History haloperidol decanoate [Haldol mg IM Q4W 11/03/17 History Decanoate] Exam Vital signs: Vital Signs 11/03/17 18:10 11/04/17 06:06 Temperature 97.4 F L Pulse Rate 89 80 Respiratory Rate 15 16 Blood Pressure 114/71 112/68 Pulse Oximetry 96 Intake & Output 11/03/17 11/04/17 11/04/17 18:59 06:59 18:59 Intake Total 1300 / 1300 Balance 1300 / 1300 Weight 61.235 kg Intake: Oral 1200 / 1200 Oral Supplement 100 / 100 Other: # Voids 3 # Bowel Movements 0 Narrative: Not in distress [place] conjunctivae, pupils equal reactive to light No oral lesions Regular rate and rhythm Clear breath sounds Abdomen soft nontender Alert, awake, oriented 3. Flat affect. Labile mood. Results - Labs CBC & Chem 7: 11/03/17 11:04 11/03/17 11:04 Assessment and Plan - Plan This is a 52-year-old female with history of schizophrenia, bipolar disorder admitted at the med psych unit for treatment of suicidal ideations and hyponatremia Suicidal ideations-management per psychiatry Hyponatremia likely secondary to polydipsia sodium is 122, likely secondary to increased water intake. Check urine electrolytes including urine sodium and creatinine, urine osmolarity and serum osmolarity. Follow BMP every 8 hours, water restriction. CBC reviewed, unremarkable. Urinalysis is normal, urine specific gravity is 1.001 pointing towards primary polydipsia causing hyponatremia. No evidence of overt hypervolemia. BUN is also low, no evidence of hyperglycemia. Hold off on IVF for now. Thank you very much for this consult. We will follow along with you.
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
[2017-11-04 17:18] LABS: Calcium 8.9 mg/dL (8.5-10.1)
[2017-11-04] MEDS: Haloperidol 5 MG Tablet PO SCH (20:17)
[2017-11-04] MEDS: Ibuprofen 600 MG Tablet PO PRN (20:30)
[2017-11-04 23:23] LABS: Calcium 9.4 mg/dL (8.5-10.1); Carbon Dioxide 28.2 meq/L (21.0-32.0); Potassium 4.4 meq/L (3.5-5.1)
[2017-11-05 07:07] LABS: Calcium 9.3 mg/dL (8.5-10.1); Carbon Dioxide 23.9 meq/L (21.0-32.0); Potassium 4.6 meq/L (3.5-5.1)
--- NOTE | 2017-11-05 09:33 | P.CONPSY ---
Provisional Diagnosis Admission Date: November 03, 2017 19:17 Beverly I.: Schizoaffective disorder History of Present Illness Service: Psychiatry Consult date: 11/05/17 Requesting Physician: Heri Patel Reason for Consult: Second opinion petition supporting [employer] Primary Care Provider: UNKNOWN Chief Complaint: Hyponatremia History of Present Illness: Patient is a 52-year-old white female admitted to Dr. Patel service the [employer] act. Dr. Patel initial H&P reviewed. Dr. Patel assigned first opinion petition supporting [employer]. Patient seen by me in day room with nurse Dilshad. Patient acknowledges auditory hallucinations of a command nature with suicidal ideation. Patient showing little insight into this is vague about compliance with medication. At this time I feel patient continues to meet criteria for involuntary psychiatric hospitalization thus I will cosign second opinion petition supporting [employer] PMFSH - History History Provided By: Patient - Medical History Medical History: Medical History (Last Reviewed 11/04/17 @ 14:21 by Chantelle Garrett MD) Epilepsy (Acute) Heart murmur (Acute) Manic depression (Acute) Bipolar 1 disorder (Acute) Schizophrenia (Acute) - Surgical History Surgical History: Surgical History (Last Reviewed 11/04/17 @ 14:21 by Chantelle Garrett MD) Hx of section (Acute) - Tobacco History Second Hand Smoke Exposure: No Tobacco Use In Past 30 Days: Yes Smoking Status: Heavy tobacco smoker Tobacco Type: Cigarettes - Alcohol History How Often Do You Have a Drink Containing Alcohol: Never - Substance Use History Substance History: Past History - Substance Use Type Marijuana Status: Sustained Remission Route Used: Inhalation Comment: last used approx. 3 yrs. ago - Immunization History Tetanus Immunization: Unsure Hx Influenza Vaccine This Season: Yes Medications and Allergies Active Medications: Active Medications Benztropine Mesylate (Cogentin) 0.5 mg PO BID ZACH Last Admin: 11/04/17 20:17 Dose: 0.5 mg Diphenhydramine HCl (Benadryl) 50 mg PO HS PRN PRN Reason: INSOMNIA Last Admin: 11/04/17 20:17 Dose: 50 mg Diphenhydramine HCl (Benadryl Inj) 50 mg IM HS PRN PRN Reason: INSOMNIA IF UNABLE TO TAKE PO Haloperidol (Haldol) 5 mg PO BID ZACH Last Admin: 11/04/17 20:17 Dose: 5 mg Ibuprofen (Motrin) 600 mg PO Q6H PRN PRN Reason: PAIN 1-10 Last Admin: 11/04/17 20:30 Dose: 600 mg Lorazepam (Ativan) 2 mg PO Q8H PRN PRN Reason: ANXIETY Miscellaneous (Pill Splitter) 1 each OTHER UNSCH PRN PRN Reason: PILL SPLITTING Nicotine (Habitrol 21 Mg Patch.24 Hr) 1 patch T-DERMAL DAILY ZACH Last Admin: 11/04/17 09:14 Dose: 1 patch Allergies Allergy/AdvReac Type Severity Reaction Status Date / Time cephalexin Allergy Unknown Anaphylaxis Verified 10/17/17 20:43 penicillin G Allergy Unknown Anaphylaxis Verified 10/17/17 20:43 Penicillins Allergy Unknown Anaphylaxis Verified 10/17/17 20:43 Erythromycin Allergy Unknown Anaphylaxis Uncoded 10/17/17 20:43 Home Medications Medication Instructions Recorded Confirmed Type benztropine [Cogentin] mg IM QMONTH 11/03/17 History haloperidol decanoate [Haldol mg IM Q4W 11/03/17 History Decanoate] Exam Vital signs: Vital Signs 11/05/17 06:06 Temperature 97.5 F L Pulse Rate 66 Respiratory Rate 16 Blood Pressure 100/56 L Pulse Oximetry 95 Intake & Output 11/04/17 11/05/17 11/05/17 18:59 06:59 18:59 Other: # Voids 3 Mental Status Examination Appearance: Disheveled Consciousness: Alert Orientation: Person, Place Motor Activity: Other (No abnormal movements noted) Speech: Unremarkable Language: Adequate Fund of Knowledge: Poor Attention and Concentration: Inadequate Memory: Impaired Mood: Other ("Depressed") Affect: Blunt Thought Process & Associations: Disorganized (At times), Other ([place]) Thought Content: Hallucinations (Denies but appears internally stimulated), Thought blocking Hallucination Type: None Delusion Type: Bizarre Suicidal Ideation: Yes Suicidal Plan: No Suicidal Intention: No Homicidal Ideation: No Homicidal Plan: No Homicidal Intention: No Insight: Poor Judgment: Poor Assessment and Plan - Assessment (1) Schizoaffective disorder Code(s): F25.9 - Schizoaffective disorder, unspecified Status: Acute - Plan Plan: I concur with Dr. Patel patient meets criteria for involuntary psychiatric hospitalization thus I will cosign second opinion petition supporting [employer] Justification for Continued Inpatient Stay: At this time patient would decompensate a place to a lower level of care
[2017-11-05] MEDS: Haloperidol 5 MG Tablet PO SCH (10:00)
--- NOTE | 2017-11-05 11:18 | P.PN ---
Subjective Interval history: Patient is seen in room. She appears to be doing well and has no new complaints or concerns. Denies any chest pain or shortness of breath. Denies any nausea vomiting or diarrhea. She is eating well. Nursing reports no adverse events overnight. Physical Exam Vital signs: Vital Signs 11/05/17 06:06 Temperature 97.5 F L Pulse Rate 66 Respiratory Rate 16 Blood Pressure 100/56 L Pulse Oximetry 95 Intake & Output 11/04/17 11/05/17 11/05/17 18:59 06:59 18:59 Other: # Voids 3 Narrative: GENERAL: Well-nourished, well-developed adult female in no obvious distress. SKIN: Warm and dry. HEAD: Atraumatic. Normocephalic. CARDIOVASCULAR: Regular rate and rhythm. RESPIRATORY: No accessory muscle use. Clear to auscultation. Breath sounds equal bilaterally. GASTROINTESTINAL: Abdomen soft, non-tender, non-distended. Positive bowel sounds. MUSCULOSKELETAL: Extremities without clubbing, cyanosis, or edema. No obvious deformities. NEUROLOGICAL: Awake and alert. No obvious cranial nerve deficits. Motor grossly within normal limits. Normal speech. Results - Labs CBC & Chem 7: 11/03/17 11:04 11/05/17 07:00 Laboratory Results - last 24 hr 11/04/17 11/04/17 11/05/17 16:15 22:16 06:05 Sodium 140 D 138 Cancelled Potassium 4.0 4.4 Cancelled Chloride 107 D 104 Cancelled Carbon Dioxide 26.0 28.2 Cancelled Anion Gap 7 6 Cancelled BUN 16 23 H Cancelled Creatinine 0.99 1.03 H Cancelled Estimated GFR 59 L 57 L Cancelled Random Glucose 99 95 Cancelled Osmolality 294 Calcium 8.9 9.4 Cancelled 11/05/17 07:00 Sodium 138 Potassium 4.6 Chloride 107 Carbon Dioxide 23.9 Anion Gap 7 BUN 20 H Creatinine 0.93 Estimated GFR 64 L Random Glucose 90 Osmolality Calcium 9.3 Assessment and Plan - Plan This is a 52-year-old female with history of schizophrenia, bipolar disorder admitted at the med psych unit for treatment of suicidal ideations and hyponatremia Suicidal ideations-management per psychiatry Hyponatremia likely secondary to polydipsia sodium 122 at admit, likely secondary to increased water intake. Check urine electrolytes including urine sodium and creatinine, urine osmolarity and serum osmolarity. Follow BMP every 8 hours, water restriction. CBC reviewed, unremarkable. Urinalysis is normal, urine specific gravity is 1.001 pointing towards primary polydipsia causing hyponatremia. No evidence of overt hypervolemia. Hold off on IVF for now. -Na WNL and stable as of 11/05. -Continue to monitor water intake DVT prophylaxis: Ambulatory Discussed with pt and nurse
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
[2017-11-05] MEDS: Ibuprofen 600 MG Tablet PO PRN (21:23)
[2017-11-06] MEDS ORDERED: Haloperidol 5 MG Tablet PO SCH (09:00)
--- NOTE | 2017-11-06 11:17 | P.PN ---
Subjective Interval history: Patient is seen sitting in room. She does not answer questions appropriately; responses are mumbled and difficult to understand. She does clearly tell me she is thirsty -patient is drinking a large glass of water during exam. Nursing reports no adverse events overnight. Physical Exam Vital signs: Vital Signs 11/05/17 18:02 11/05/17 23:57 11/06/17 05:37 Temperature 97.2 F L 98.6 F Pulse Rate 81 93 H Respiratory Rate 19 19 16 Blood Pressure 138/64 116/68 Pulse Oximetry 99 11/06/17 08:20 Temperature Pulse Rate Respiratory Rate 16 Blood Pressure Pulse Oximetry Intake & Output 11/05/17 11/06/17 11/06/17 18:59 06:59 18:59 Intake Total 240 / 240 Balance 240 / 240 Intake: Oral 240 / 240 Narrative: GENERAL: Well-nourished, well-developed adult female in no obvious distress. SKIN: Warm and dry. HEAD: Atraumatic. Normocephalic. CARDIOVASCULAR: Regular rate and rhythm. RESPIRATORY: No accessory muscle use. Clear to auscultation. Breath sounds equal bilaterally. GASTROINTESTINAL: Abdomen soft, non-tender, non-distended. Positive bowel sounds. MUSCULOSKELETAL: Extremities without clubbing, cyanosis, or edema. No obvious deformities. NEUROLOGICAL: Awake and alert. No obvious cranial nerve deficits. Motor grossly within normal limits. Results - Labs CBC & Chem 7: 11/03/17 11:04 11/05/17 07:00 Assessment and Plan - Plan This is a 52-year-old female with history of schizophrenia, bipolar disorder admitted at the med psych unit for treatment of suicidal ideations and hyponatremia Suicidal ideations-management per psychiatry Hyponatremia likely secondary to polydipsia sodium 122 at admit, likely secondary to increased water intake. Check urine electrolytes including urine sodium and creatinine, urine osmolarity and serum osmolarity. Follow BMP every 8 hours, water restriction. CBC reviewed, unremarkable. Urinalysis is normal, urine specific gravity is 1.001 pointing towards primary polydipsia causing hyponatremia. No evidence of overt hypervolemia. Hold off on IVF for now. -Na WNL and stable as of 11/05. -Continue to monitor water intake; reminded nursing to restrict DVT prophylaxis: Ambulatory Discussed with pt and nurse
[2017-11-06 15:26] LABS: Calcium 8.9 mg/dL (8.5-10.1); Carbon Dioxide 29.7 meq/L (21.0-32.0); Potassium 3.8 meq/L (3.5-5.1)
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
[2017-11-06] MEDS: Ibuprofen 600 MG Tablet PO PRN (21:44)
[2017-11-07] MEDS: Haloperidol 5 MG Tablet PO SCH (09:18)
--- NOTE | 2017-11-07 15:57 | P.PN ---
Subjective Interval history: Patient is seen ambulating hallway. She is asking for water. Nursing aides confirm that she has been restricted on her intake but they are concerned that she may be getting some from other patients. She tells me that she is otherwise fine, just thirsty. Physical Exam Vital signs: Vital Signs 11/06/17 17:26 11/07/17 06:24 Temperature 98.6 F 97.3 F L Pulse Rate 93 H 88 Respiratory Rate 15 16 Blood Pressure 116/76 105/55 L Pulse Oximetry 97 100 Intake & Output 11/06/17 11/07/17 11/07/17 18:59 06:59 18:59 Intake Total 720 / 720 340 / 340 Balance 720 / 720 340 / 340 Intake: Oral 720 / 720 240 / 240 Oral Supplement 100 / 100 Other: # Voids 3 # Bowel Movements 0 Narrative: GENERAL: Well-nourished, well-developed adult female in no obvious distress. SKIN: Warm and dry. HEAD: Atraumatic. Normocephalic. CARDIOVASCULAR: Regular rate and rhythm. RESPIRATORY: No accessory muscle use. Clear to auscultation. Breath sounds equal bilaterally. GASTROINTESTINAL: Abdomen soft, non-tender, non-distended. Positive bowel sounds. MUSCULOSKELETAL: Extremities without clubbing, cyanosis, or edema. No obvious deformities. NEUROLOGICAL: Awake and alert. No obvious cranial nerve deficits. Motor grossly within normal limits. Results - Labs CBC & Chem 7: 11/03/17 11:04 11/06/17 14:45 Assessment and Plan - Plan This is a 52-year-old female with history of schizophrenia, bipolar disorder admitted at the med psych unit for treatment of suicidal ideations and hyponatremia Suicidal ideations-management per psychiatry Hyponatremia likely secondary to polydipsia sodium 122 at admit, likely secondary to increased water intake. Check urine electrolytes including urine sodium and creatinine, urine osmolarity and serum osmolarity. Follow BMP every 8 hours, water restriction. CBC reviewed, unremarkable. Urinalysis is normal, urine specific gravity is 1.001 pointing towards primary polydipsia causing hyponatremia. No evidence of overt hypervolemia. Hold off on IVF for now. -Na WNL and stable as of 11/05. -Continue to monitor water intake; reminded nursing to restrict. DVT prophylaxis: Ambulatory Discussed with pt and nurse Patient appears to be medically stable. Hospitalist service will sign off. Please reconsult if needed
--- NOTE | 2017-11-07 19:32 | P.PNPSY ---
Subjective Remarks: Reviewed electronic medical records and discussed case with staff. Follow-up was conducted in the hallway. Patient reports that she has had a good appetite has been sleeping well. She denies auditory or visual hallucinations. She maintains intense eye contact and seems to be a little vigilant. However her mood is good her affect is euthymic. Staff reports that they have had to restrict her fluid intake recently due to her frequent requests. Mental Status Examination Appearance: Appropriate Consciousness: Alert Orientation: Person, Place Motor Activity: Other (No abnormal movements noted) Speech: Unremarkable Language: Adequate Fund of Knowledge: Poor Attention and Concentration: Inadequate Memory: Impaired Mood: Other ("alright") Affect: Blunt Thought Process & Associations: Disorganized (At times), Other ([place]) Thought Content: Hallucinations (Denies but appears internally stimulated), Thought blocking (lessening) Hallucination Type: None Delusion Type: Bizarre Suicidal Ideation: No Suicidal Plan: No Suicidal Intention: No Homicidal Ideation: No Homicidal Plan: No Homicidal Intention: No Insight: Poor Judgment: Poor Assessment and Plan - Assessment (1) Schizoaffective disorder Code(s): F25.9 - Schizoaffective disorder, unspecified Status: Acute - Plan Plan: Patient will be reevaluated Thursday by the attending psychiatrist. Continue with current treatment plan. Justification for Continued Inpatient Stay: Moving this patient to a less restrictive environment would likely result in decompensation.
[2017-11-08] MEDS: Haloperidol 5 MG Tablet PO SCH (09:46)
--- NOTE | 2017-11-08 12:52 | P.PNPSY ---
Subjective Remarks: Reviewed electronic medical records and discussed case with staff. Follow-up was conducted in the milieu. Patient reports that her appetite has been good and she has been sleeping well. She denies any side effects from the medication. She does not seem to be internally stimulated nor is there any indication of thought blocking. She denies feeling aggressive towards any staff or any other patients. Her nurse reports she has had no behaviors. Mental Status Examination Appearance: Appropriate Consciousness: Alert Orientation: Person, Place Motor Activity: Other (No abnormal movements noted) Speech: Unremarkable Language: Adequate Fund of Knowledge: Poor Attention and Concentration: Inadequate Memory: Impaired Mood: Other ("alright") Affect: Blunt Thought Process & Associations: Disorganized (At times), Other ([place]) Thought Content: Hallucinations (Denies but appears internally stimulated), Thought blocking (lessening) Hallucination Type: None Delusion Type: Bizarre Suicidal Ideation: No Suicidal Plan: No Suicidal Intention: No Homicidal Ideation: No Homicidal Plan: No Homicidal Intention: No Insight: Poor Judgment: Poor Assessment and Plan - Assessment (1) Schizoaffective disorder Code(s): F25.9 - Schizoaffective disorder, unspecified Status: Acute - Plan Plan: Patient will be reevaluated tomorrow by the attending psychiatrist. Continue with current treatment plan. Justification for Continued Inpatient Stay: Moving this patient to a less restrictive environment would likely result in decompensation.
[2017-11-09] MEDS: Haloperidol 5 MG Tablet PO SCH (09:01)
[2017-11-09 10:02] LABS: Calcium 8.6 mg/dL (8.5-10.1)
--- NOTE | 2017-11-09 15:50 | XR ---
EXAM DATE: 11/09/2017 3:21 PM EDT AGE/SEX: 52 years / Female INDICATIONS: Evaluate for pneumonia, pneumothorax, or communicable disease. CLINICAL DATA: This is the patient's initial encounter. Patient reports that signs and symptoms have been present for 1 day and indicates a pain score of 0/10. MEDICAL/SURGICAL HISTORY: None. None. COMPARISON: [facility] [place], CHEST SINGLE AP, 09/17/2016. . FINDINGS: PA and lateral views of the chest demonstrate the lungs to be symmetrically aerated without evidence of mass, infiltrate or effusion. The cardiomediastinal contours are unremarkable. Osseous structures are intact. Partial visualization of an IVC filter. CONCLUSION: Negative examination. Electronically signed by: Torito Clancy MD 11/09/2017 3:48 PM EDT
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
== END 2017-11-09 15:25 ==
LOC: NEPJ 10:45 → NEDA 19:17 → H4EA 19:55 → H260 11-05 13:44
PROVIDERS: ADMIT Student in an Organized Health Care Education/Training Program; ATTEND Student in an Organized Health Care Education/Training Program